=== PATIENT | male | born 1955 | race Caucasian/White ===

== ENCOUNTER 2020-05-07 06:54 | Outpatient (CLI) | payer MEDICARE, SELFPAY ==
--- NOTE | 2020-05-07 07:15 | USCV_ITS ---
Amando Hearn Age: 64 Gender: M : 1955 Exam Date: 05/07/2020 07:23 Ordering Phys: Joanna Ken MD Technologist: Dena Sharma Exam Location: [facility] [place] Indication: CARDIOMYOPATHY DONE WITH OPTISON BP: 120 / 55 HR: 54 Rhythm: Sinus Technical Quality: Adequate MEASUREMENTS (Male / Female) Normal Values 2D ECHO LV Diastolic Diameter PLAX 4.8 cm 4.2 - 5.9 / 3.9 - 5.3 cm LV Systolic Diameter PLAX 4.0 cm LV Chamber Size 5.9 cm IVS Diastolic Thickness 1.3 cm 0.6 - 1.0 / 0.6 - 0.9 cm IVS Systolic Thickness 1.6 cm LVPW Diastolic Thickness 1.7 cm 0.6 - 1.0 / 0.6 - 0.9 cm LVPW Systolic Thickness 1.6 cm RV Chamber Size 3.6 cm LVOT Diameter 2.0 cm LV Ejection Fraction 2D Teich 35.4 % LV Ejection Fraction MOD 2C 46.2 % LV Ejection Fraction 2C AL 46.7 % LA Diameter 3.5 cm LA Width 3.8 cm LA Height 5.8 cm RA Width 3.5 cm RA Height 4.6 cm Aorta at Sinotubular Diameter 3.8 cm M-MODE LV Diastolic Diameter MM 5.0 cm 4.2 - 5.9 / 3.9 - 5.3 cm LV Systolic Diameter MM 4.1 cm LV Ejection Fraction MM Teich 36.6 % IVS Diastolic Thickness MM 1.5 cm 0.6 - 1.0 / 0.6 - 0.9 cm IVS Systolic Thickness MM 1.6 cm LVPW Diastolic Thickness MM 1.3 cm 0.6 - 1.0 / 0.6 - 0.9 cm LVPW Systolic Thickness MM 1.6 cm Aortic Annulus Diameter 3.6 cm LA Ao Ratio MM 1.1 MV E Point Septal Separation 0.9 cm DOPPLER AV Peak Velocity 117.0 cm/s LVOT Peak Velocity 73.7 cm/s AV Area Cont Eq vti 2.0 cm squared AV Area Cont Eq pk 2.0 cm squared MV Area PHT 2.5 cm squared Mitral E to A Ratio 1.1 MV E' Velocity 42.0 cm/s Mitral E to MV E' Ratio 13.3 Mitral E to LV E' Lateral Ratio 10.7 Mitral E to LV E' Septal Ratio 17.5 TR Peak Velocity 207.6 cm/s TR Peak Gradient 17.2 mmHg TR Mean Velocity 180.2 cm/s TR Mean Gradient 14.0 mmHg TR Velocity Time Integral 91.7 cm TV Peak E Velocity 63.0 cm/s Right Atrial Pressure 3.0 mmHg Pulmonary Artery Systolic Pressu 20.2 mmHg PV Peak Velocity 44.0 cm/s RV Acceleration Time 0.1 s RV Ejection Time 0.4 s RV AcT/ET 0.4 FINDINGS Left Ventricle Mildly increased left ventricular cavity size. Moderately decreased left ventricular systolic function. Left ventricular ejection fraction is estimated at 30-35%. Global left ventricular hypokinesis. Grade II diastolic dysfunction, moderately elevated filling pressures. Right Ventricle Normal right ventricular size and systolic function. Right ventricular systolic pressure 20.2 mmHg. Right Atrium Normal right atrial size. Left Atrium Mildly increased left atrial size. Mitral Valve Mildly thickened mitral valve. No mitral valve stenosis. Trace mitral valve regurgitation. Aortic Valve Structurally normal trileaflet aortic valve. No aortic valve stenosis. No aortic valve regurgitation. Tricuspid Valve Structurally normal tricuspid valve. Trace to mild tricuspid valve regurgitation. Pulmonic Valve Pulmonic valve not well visualized. Trace pulmonary valve regurgitation. Pericardium No pericardial effusion. Aorta Normal sized aortic root. CONCLUSIONS 1. Mildly increased left ventricular cavity size. Moderately decreased left ventricular systolic function. Left ventricular ejection fraction is estimated at 30-35%. Global left ventricular hypokinesis. Grade II diastolic dysfunction, moderately elevated filling pressures. 2. Normal right ventricular size and systolic function. 3. No significant valvular abnormality. 4. When compared to previous echocardiogram dated 02/15/2018, left ventricular systolic function seems to have decreased. Joanna Ken MD (Electronically Signed) Final Date: 14 May 2020 07:27 S
[2020-05-07] MEDS: perflutren protein-a microsphr 0.22 mg/mL SDV 3 mL IV (08:18)
== END 2020-05-07 06:55 | disposition home or self-care (01) ==
LOC: US 06:56
PROVIDERS: PCP Family Medicine; Visit Provider Internal Medicine Cardiovascular Disease
DX: I42.9 Cardiomyopathy, unspecified (principal); I51.7 Cardiomegaly
CPT/HCPCS: C8929; Q9956

== ENCOUNTER 2020-11-23 14:50 | Outpatient (CLI) | payer MEDICARE, SELFPAY ==
--- NOTE | 2020-11-23 15:45 | USCV_ITS ---
Amando Hearn Age: 65 Gender: M : 1955 Exam Date: 11/23/2020 15:42 Ordering Phys: Joanna Ken MD ([email or web address]) Technologist: Ex[place] [facility] [place]: CHF, Hx OF [place] BP: 130 / 75 HR: 72 Rhythm: Sinus Technical Quality: Technically difficult study MEASUREMENTS (Male / Female) Normal Values 2D ECHO LV Diastolic Diameter PLAX 6.4 cm 4.2 - 5.9 / 3.9 - 5.3 cm LV Systolic Diameter PLAX 4.6 cm IVS Diastolic Thickness 1.1 cm 0.6 - 1.0 / 0.6 - 0.9 cm IVS Systolic Thickness 1.7 cm LVPW Diastolic Thickness 1.6 cm 0.6 - 1.0 / 0.6 - 0.9 cm LVPW Systolic Thickness 1.5 cm LVOT Diameter 2.0 cm LV Ejection Fraction 2D Teich 42.4 % LV Ejection Fraction MOD 2C 48.4 % LV Ejection Fraction 2C AL 50.1 % LA Diameter 4.0 cm LA Width 4.0 cm LA Height 6.1 cm RA Width 4.0 cm RA Height 5.0 cm FINDINGS Left Ventricle Mildly increased left ventricular cavity size. Moderately decreased left ventricular systolic function. Left ventricular ejection fraction is estimated at 30-35 %. This study is inadequate for estimation of regional wall motion abnormality. Right Ventricle Normal right ventricular size and systolic function. Right Atrium Normal right atrial size. Left Atrium Left atrium not well visualized. Mildly increased left atrial size. Mitral Valve Thickened mitral valve. Aortic Valve Aortic valve not well visualized. Tricuspid Valve Tricuspid valve not well visualized. Pulmonic Valve Pulmonic valve not well visualized. Pericardium No pericardial effusion. Aorta Aorta not well visualized. CONCLUSIONS 1. This is technically difficult study. 2. Mildly increased left ventricular cavity size. Moderately decreased left ventricular systolic function. Left ventricular ejection fraction is estimated at 30-35 %. This study is inadequate for estimation of regional wall motion abnormality. 3. Normal right ventricular size and systolic function. 4. Direct comparison to previous study dated 05/07/20 is not possible due to difficult study. Joanna Ken MD (Electronically Signed) Final Date: 26 November 2020 07:49 S
== END 2020-11-23 14:51 | disposition home or self-care (01) ==
LOC: US 14:52
PROVIDERS: PCP Family Medicine; Visit Provider Internal Medicine Cardiovascular Disease
DX: I42.9 Cardiomyopathy, unspecified (principal); I50.9 Heart failure, unspecified; I25.2 Old myocardial infarction
CPT/HCPCS: 93308

== ENCOUNTER → 2020-12-05 09:44 | Outpatient (BNVA) | payer MEDICARE, SELFPAY | PROVIDERS: PCP Family Medicine; Visit Provider Internal Medicine Cardiovascular Disease | DX: I42.9 Cardiomyopathy, unspecified (principal); I25.119 Atherosclerotic heart disease of native coronary artery with unspecified angina pectoris; I10 Essential (primary) hypertension; R07.9 Chest pain, unspecified | CPT/HCPCS: 80048; 83735; 83880 ==

== ENCOUNTER → 2021-05-16 13:53 | Outpatient (BNVA) | payer MEDICARE, SELFPAY | PROVIDERS: PCP Family Medicine; Visit Provider Internal Medicine Cardiovascular Disease | DX: I42.9 Cardiomyopathy, unspecified (principal); I25.119 Atherosclerotic heart disease of native coronary artery with unspecified angina pectoris; I10 Essential (primary) hypertension | CPT/HCPCS: 99214 ==

== ENCOUNTER 2021-08-28 00:05 | Inpatient (IN) | payer MEDICARE, SELFPAY ==
[2021-08-28] VITALS (61 sets, daily range): BP systolic 108–176; BP diastolic 53–84; PULSE 70–93; RESP 9–23; TEMP 36.4–36.8; O2SAT 88–97; BMI 32.1
--- NOTE | 2021-08-28 | USCV_ITS ---
Transthoracic Echo Amando Hearn Age: 65 Gender: M : 1955 Exam Date: 08/28/2021 02:18 Ordering Phys: Erick Lobo MD Technologist: GENESIS Exam Location: [facility] [place] Indication: chest pain, history of cardiac arrest. Hx EF 15- 20% BP: 141 / 70 HR: 70 Rhythm: Sinus Technical Quality: Adequate MEASUREMENTS (Male / Female) Normal Values 2D ECHO LVOT Diameter 2.2 cm LV Ejection Fraction MOD 2C 43.6 % LV Ejection Fraction 2C AL 45.1 % LA Diameter 5.6 cm LA Width 4.9 cm LA Height 7.5 cm RA Width 3.4 cm RA Height 4.7 cm Aorta at Sinotubular Diameter 3.2 cm IVC Diameter 1.6 cm M-MODE Aortic Annulus Diameter 3.5 cm LA Ao Ratio MM 1.6 MV E Point Septal Separation 0.6 cm DOPPLER AV Peak Velocity 140.0 cm/s LVOT Peak Velocity 109.0 cm/s AV Area Cont Eq vti 3.4 cm squared AV Area Cont Eq pk 2.9 cm squared MV Peak Velocity 108.0 cm/s MV Area PHT 4.8 cm squared Mitral E to A Ratio 0.8 MV E' Velocity 46.5 cm/s Mitral E to MV E' Ratio 9.2 Mitral E to LV E' Lateral Ratio 7.6 Mitral E to LV E' Septal Ratio 11.8 TR Peak Velocity 232.8 cm/s TR Peak Gradient 21.7 mmHg TV Peak E Velocity 49.0 cm/s Right Atrial Pressure 10.0 mmHg Pulmonary Artery Systolic Pressu 31.7 mmHg PV Peak Velocity 108.0 cm/s RV Acceleration Time 0.1 s RV Ejection Time 0.4 s RV AcT/ET 0.2 FINDINGS Left Ventricle Normal left ventricular size. LV systolic function is moderate to severely reduced with EF of 30-35%. Moderate to severe global hypokinesis. Grade 1 diastolic dysfunction Right Ventricle RV is hypokinetic Right Atrium The right atrium is normal in size. Left Atrium The left atrium is dilated Mitral Valve Grossly normal without significant stenosis or prolapse. There is no mitral regurgitation. Aortic Valve Grossly normal without significant stenosis. There is no aortic regurgitation. Tricuspid Valve Structurally normal tricuspid valve without significant stenosis. Mild tricuspid regurgitation. Pulmonary artery systolic pressure is normal. Pulmonic Valve Not well visualized Pericardium Normal pericardium without effusion. Aorta Mildly dilated ascending aorta IVC CONCLUSIONS Technically limited quality echocardiogram because of poor ultrasonic windows LV systolic function is moderate to severely reduced with EF of 30 to 35%. Moderate to severe global hypokinesis Grade 1 diastolic dysfunction. The right ventricle is hypokinetic. Left atrium is dilated. Mild tricuspid regurgitation. Mildly dilated ascending aorta Compared to prior echocardiogram from 11/23/2020, no signficant changes are seen Dirk Emanuel MD (Electronically Signed) Final Date: 28 August 2021 17:50 S
[2021-08-28 01:10] LABS: Glucose Point of Care 137 mg/dL (70-110)
--- NOTE | 2021-08-28 01:46 | NMCV_ITS ---
NM kanika perf SPECT r/s* [id number] Amando Hearn Age: 65 Gender: M : 1955 Exam Date: 08/28/2021 01:46 Ordering Phys: Erick Lobo MD Technologist: CAITLIN Sanford Exam Location: [facility] Indications: CHEST PAIN STRESS TEST Please see separate stress test report in [facility] for full findings IMAGE PROTOCOL Rest/Stress 1 Lexiscan Day Radiopharmaceutical Dose (mCi) Administration Site Administered by Rest: Tc-99m 11.0 IV CAITLIN Sanford Sestamibi Stress:Tc-99m 33.0 IV CAITLIN Rodarte Sestamibi Rest: 28-Aug-2021 60 Discovery 630 Stress: 28-Aug-2021 30 Discovery 630 0.4mg Lexiscan. Supine position only as patient was unable to lay prone. SPECT RESULTS Technical Quality: Excellent Raw Data Analysis: Normal Image Corrections: No attenuation or motion correction applied Summed Stress Score: 19 Summed Rest Score: 18 Summed Difference Score: 1 PERFUSION FINDINGS There is mostly fixed, large sized perfusion defect in the apical, apical lateral, inferior and inferolateral richardson with some reversibility in inferolateral wall. This is consistent with large sized prior infarct in LAD, RCA and left circumflex artery territories with small to moderate sized rolan- infarct ischemia is seen in the left circumflex artery territory. FUNCTIONAL RESULTS (calculated via Gated SPECT) Stress Image LV EF (%): 33 Stress EDV (mL):213 TID: 0.99 Stress ESV (mL):143 FUNCTIONAL FINDINGS: LV systolic function is severely reduced with EF of 33%. Severe global hypokinesis is seen IMPRESSIONS 1. Abnormal myocardial perfusion imaging with large sized infarct seen in RCA, LAD and Left circumflex artery territory with small to moderate sized rolan- infarct ischemia noted in the left circumflex artery territory. 2. LV systolic function is severely reduced with EF of 33%. Severe global hypokinesis Dirk Emanuel MD (Electronically Signed) Final Date: 28 August 2021 12:23 S
--- NOTE | 2021-08-28 02:06 | PM.HP ---
Providers/Chief Complaint Admitting Physician: Erick Lobo Primary Care Provider: Souleymane Neal Chief Complaint: Chest Pain History of Present Illness Pleasant 65-year-old gentleman transferred as a direct admission from [facility] due to new in quality, burning left-sided chest pain, initial plan currently admitted there for rehabilitation after an extensive recent hospitalization at [facility] [facility] where he was assessed and managed for left knee septic arthritis, MSSA bacteremia, with hospitalization complicated by PEA cardiac arrest, required ACLS, with achievement of ROSC in about 5 minutes, subsequently with hypotension, requiring vasopressors, as well as requiring about 5 units RBC transfusion due to anemia. With resultant rib and sternal fractures and continued pain. They are also assessed by cardiology underwent ANTHONY, with finding of ejection fraction in the 15-20% range. Some question of fluid around the spleen at the time was assessed by general surgery with recommended conservative management. With prior history of TKA in 2014, after his condition stabilized, he was extubated, and subsequently underwent left knee hardware removal and cement spacer placement of the left knee. PICC line was placed sometime before discharge from [facility], and he is continued on cefazolin as per ID recommendations every 8 hours tentatively until 09/23. PICC line is to stay in until follow-up with ID. They are still was also started on vancomycin p.o. as a prophylaxis against C. difficile per documentation. Knee synovial fluid grew MSSA. He reports that he has appointments for follow-up with infectious disease in September, and was also referred for follow-up with cardiology, orthopedics. He reports that he is toe-touch weightbearing on the left lower extremity. Dressing changes are continued on the left knee, although he is not sure what kind of dressing, and I do not see a record of this in the paperwork that came with him. He states that after clearance of bacteremia, reassessment with ID, then also he required extensive dental extraction as she states it was thought likely this was the source of entry for MSSA, before then further consideration of hardware reimplantation. More detailed documentation from his hospitalization in [place] is in the paper chart. He reports the left-sided chest pain with burning sensation and stabbing, like a hot knife . Denies that this pain was similar to the pain from the rib and sternal fractures. Denies any change in his pain with position or breathing. At [facility] due to persistence of the pain Nitropaste was applied and was started on ACS protocol, and after discussion with cardiology here request was made for transfer for additional assessment with stress test given prior history of coronary disease, as well as recent cardiac arrest. He reports he is at the moment pain-free. Review of Systems Const: Denies: fever(s), chills, body aches or malaise Eyes: Denies: change in vision, eye discomfort or eye redness ENMT: Denies: throat pain, oral sores or ear or mastoid pain Card: Reports: chest pain; Denies: edema, pre-syncope or dyspnea on exertion Resp: Denies: dyspnea, productive cough, change in phlegm color or hemoptysis GI: Denies: abdominal pain, nausea, vomiting, diarrhea, constipation, hematochezia or melena : Denies: flank pain, difficulty urinating, urinary frequency or hematuria Musc: Denies: back pain, joint swelling or joint redness Skin/Breast: Denies: rash or new lesions Neuro: Denies: headache(s), numbness in extremities, weakness in extremities, dizziness, confusion or seizure-like activity Endo: Denies: polyuria or polydipsia Jamil/Lymph: Denies: easy bleeding or tender lymph nodes All/Imm: Denies: urticaria or tongue swelling Medications/Allergies Home Medications Medication Instructions Recorded Confirmed Last Taken Type aspirin 81 mg tablet,delayed 81 mg PO DAILY 10/26/19 01/21/21 Unknown History release (Aspir-) fluoxetine 40 mg capsule 40 mg PO DAILY 10/26/19 01/21/21 Unknown History multivitamin 1 tab PO DAILY 10/26/19 01/21/21 Unknown History vitamin E (dl, acetate) 180 mg 400 unit PO DAILY 10/26/19 01/21/21 Unknown History (400 unit) capsule cholecalciferol (vitamin D3) 10 10 mcg PO DAILY 10/15/20 01/21/21 Unknown History mcg (400 unit) capsule ginkgo biloba 60 mg tablet 60 mg PO DAILY tab 10/15/20 01/21/21 Unknown History nitroglycerin 0.3 mg sublingual 0.3 mg SUBLINGUAL Q5M PRN #50 tab 11/28/20 01/21/21 Unknown Rx tablet (Nitrostat) celecoxib 100 mg capsule (Celebrex) 100 mg PO DAILY cap 05/16/21 Unknown History clopidogrel 75 mg tablet 75 mg PO DAILY #90 tab 05/16/21 05/16/21 Unknown Rx spironolactone 25 mg tablet 25 mg PO DAILY #90 tab 05/16/21 05/16/21 Unknown Rx (Aldactone) lisinopril 10 mg tablet 10 mg PO DAILY #90 tab 05/18/21 05/18/21 Unknown Rx metoprolol succinate 25 mg 25 mg PO DAILY #90 tab 05/18/21 05/18/21 Unknown Rx tablet,extended release 24 hr rosuvastatin 20 mg tablet 20 mg PO DAILY #90 tab 05/18/21 05/18/21 Unknown Rx Allergies Allergy/AdvReac Type Severity Reaction Status Date / Time Penicillins AdvReac ADR-Itching Verified 01/21/21 13:51 PFSH Acute PFSH: Medical History Anemia Cardiac arrest Chewing tobacco nicotine dependence Chronic back pain Coronary artery disease Diabetes RAMAN (generalized anxiety disorder) GERD (gastroesophageal reflux disease) HFrEF (heart failure with reduced ejection fraction) Hyperlipidemia Hypertension Ischemic cardiomyopathy MSSA bacteremia Rib fractures Septic arthritis Sternal fracture Surgical History History of total knee arthroplasty Stented coronary artery Family History Other CAD (coronary artery disease) Myocardial infarction Social History Smoking and tobacco status: never smoked Quit status (tobacco): has quit using tobacco Alcohol intake: current Alcohol intake frequency: holidays/special occasions only Alcohol type: beer, wine and hard liquor Vitals/I&O/Wt Last Vital Signs Temp 98.3 F 08/28/21 00:15 Pulse 70 08/28/21 01:48 Resp 13 08/28/21 01:45 BP 141/70 08/28/21 01:45 Pulse Ox 92 08/28/21 01:45 08/27/21 08/27/21 08/28/21 14:59 22:59 06:59 Intake Total 3.333 / 3.333 Balance 3.333 / 3.333 Weight last 48 hrs Weight 122.969 kg Physical Exam Const: COMMON NORMALS: alert GENERAL APPEARANCE: cooperative NUTRITIONAL APPEARANCE: overweight ORIENTATION/CONSCIOUSNESS: Yes awake OTHER: Pleasant, conversant HENMT: COMMON NORMALS: normocephalic, EAC's normal, Normal external nose present and moist oral mucous membranes HEAD & SCALP: normocephalic NOSE: Normal external nose present EXTERNAL AUDITORY CANAL: EAC's normal Neck/C-Spine: COMMON NORMALS: no meningeal signs Chest: CHEST: Yes Symmetrical chest wall rise OTHER: Bruising Resp: COMMON NORMALS: clear to auscultation bilaterally AUSCULTATION: clear to auscultation bilaterally Cardio: COMMON NORMALS: regular rate, regular rhythm and No murmurs present (Cardio) RATE: regular rate RHYTHM: regular rhythm GI: COMMON NORMALS: Normal to inspection, nondistended, normoactive bowel sounds present, Soft to palpation and non-tender PALPATION: Yes Soft to palpation Extremity: COMMON NORMALS: no pedal edema OTHER: L knee audelia wrap dressing RUE 2 lumen PICC Neuro: COMMON NORMALS: moves all extremities SENSORIUM/ORIENTATION: Yes alert MENINGEAL SIGNS: Yes no meningeal signs Psych: COMMON NORMALS: mental status grossly normal Skin: COMMON NORMALS: no wounds RASHES: no rashes A&P Assessment and plan (1) Chest pain: Left side burning/stabbing chest pain, reports different from prior sternal fracture and rib fracture pain after PEA cardiac arrest and CPR for 5 minutes at [facility]. With known history of CAD, previously 2 AI to RCA in 2018. Nitropaste was applied at [facility] from where he is a direct admission. Currently chest pain-free. Transferred here for additional assessment with stress testing. Discussed with him, requested, n.p.o. at the moment. We will additionally assess with limited TTE, previously EF 15-20% in [place] after cardiac arrest on ANTHONY. Denies having any assessment at that time with coronary angiography. Started on ACS protocol at [facility] including Lovenox. We will continue for now. Monitor hemoglobin closely as he did not require transfusion of RBC and drop in after the PEA arrest. Denies cough, shortness of breath, no unilateral extremity swelling, no tachycardia, other symptoms to suggest PE. Will assess LLE duplex. Status: Acute Qualifiers: Chest pain type: unspecified Qualified Code(s): R07.9 - Chest pain, unspecified (2) Cardiomyopathy: History of ischemic cardiomyopathy, EF 30-35%, worse after PEA cardiac arrest in [place] in July, EF 15-20% reported at that time. Cannot appreciate had additional cardiac or worsening beyond ANTHONY at that time. Amateur also there was discussion regarding LifeVest/ICD. We will follow-up with limited TTE. Previously had issues with AUDELIA inhibitor due to soft blood pressure. Monitor blood pressures. Consider LifeVest. Additional work-up as above of chest pain with known CAD. Follow-up with cardiology or consider inpatient consultation depending on condition and further findings. Status: Acute Qualifiers: Cardiomyopathy type: unspecified Qualified Code(s): I42.9 - Cardiomyopathy, unspecified (3) Septic arthritis: Left knee septic arthritis with hardware removal 08/13 with cement spacer placed, with every 8 hours IV cefazolin tentative stop date 09/23, PICC line to remain in place until follows up with ID. Complicated with MSSA bacteremia. Source of entry thought to be due to periodontal disease for which she states plans are also for dental extraction. Given the timing of his arrival. Not at this time look at his left knee wound, please reassess when time permits. He reports dressing changes have been taking place at [facility], although I do not see current wound care measures in the paperwork arrived with him. Requested records regarding wound care. Please order once this is available. Oral vancomycin documented as prophylaxis against C. difficile in paperwork from [place]. TTWB LLE Status: Acute (4) MSSA bacteremia: As above Status: Acute (5) Decubital ulcer: Stage I decubital ulcer on his bottom. Foam dressing daily. Status: Acute Plan HTN DM2 HLD Chewing tobacco use: He has since quit chewing tobacco Sternal fracture and multiple rib fractures after CPR: Lidocaine patch, Tylenol as needed. I-S. Attestations Medical Necessity Statement*: Place in for additional assessment management of chest pain and gentleman with underlying CAD, recent cardiac arrest. 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 of Care Code Acute Fabric Pattern Grader for Se Carr Diagnoses Chest pain R07.9 Chest pain type: unspecified Cardiomyopathy I42.9 Cardiomyopathy type: unspecified Septic arthritis M00.9 MSSA bacteremia R78.81; B95.61 Decubital ulcer L89.90
--- NOTE | 2021-08-28 02:23 | USCV_ITS ---
Amando Hearn Age: 65 Gender: M : 1955 Exam Date: 08/28/2021 03:15 Ordering Phys: Erick Lobo MD Technologist: GENESIS Exam Location: [facility] [place] Indication: infection LEFT leg s/p LEFT total knee removal in [place] last month. Patient is poor historian. Hx LEFT total knee 2004, 2014. HISTORY: infection LEFT leg s/p LEFT total knee removal in [place] last month. Patient is poor historian. Hx LEFT total knee replacements 2004, 2014. No hx DVT per patient. PROCEDURES: Venous duplex imaging was performed in only the left lower extremity. The following venous structures were evaluated: common femoral vein, profunda vein, proximal portion of the greater saphenous vein, superficial femoral vein, and the popliteal vein. In addition, the posterior tibial veins were evaluated. FINDINGS: Normal 2-D Doppler and augmentation and compressibility throughout the lower extremity venous structures. Additional imaging through the proximal calf veins also reveals no thrombus. Limited evaluation of the greater saphenous vein is patent with no thrombus. Complex fluid collection left thigh measures 6.7 x 4.4 x 6.7 cm. CONCLUSIONS No DVT left lower extremity. Complex fluid collection distal left thigh, postop seroma, resolving hematoma or abscess in the differential. Dr. Monica Sanchez DO (Electronically Signed) Final Date: 28 August 2021 07:45 S
[2021-08-28 05:30] LABS: Basophils % 0.2 %; Eosinophils # 0.2 10^3/uL (0.0-0.8); Eosinophils % 3.6 %; Hematocrit 24.5 % (42.0-52.0); Hemoglobin 8.1 g/dL (11.7-16.6); Lymphocytes # 1.6 10^3/uL (0.8-4.8); Lymphocytes % 32.5 %; Mean Corpuscular HGB Conc 33.1 g/dL (30.0-36.0); Mean Corpuscular Hemoglobin 30.2 pg (28.0-34.0); Mean Corpuscular Volume 91.4 fl (80-94); Mean Platelet Volume 9.5 fL (7.4-10.4); Monocytes # 0.6 10^3/uL (0.2-0.9); Monocytes % 10.9 %; Neutrophils # 2.64 10^3/uL (1.8-7.7); Neutrophils % 52.4 %; Nucleated Red Blood Cells % 0 %; Platelet Count 259 10^3/cmm (130-400); Red Blood Count 2.68 10^6/uL (4.1-5.3); Red Cell Distribution Width 13.8 % (12.1-15.1)
[2021-08-28 05:47] LABS: Troponin T (5th) Once 23 ng/L (0-15)
[2021-08-28 05:50] LABS: Alanine Aminotransferase < 5 U/L (0-41); Albumin Level 2.9 g/dL (3.5-5.2); Alkaline Phosphatase 108 IU/L (40-130); Anion Gap 13.1 (5-19); Aspartate Amino Transferase 17 U/L (0-40); Blood Urea Nitrogen 16 mg/dL (8-23); Calcium 8.3 mg/dL (8.5-10.5); Carbon Dioxide 29 mmol/L (22-29); Chloride 92 mmol/L (98-107); Globulin 4.4 g/dL (1.3-4.6); Glucose 98 mg/dL (65-115); Osmolality Calculated 273 mOsm/kg (285-295); Potassium 3.1 mmol/L (3.5-5.1); Sodium 131 mmol/L (136-145); Total Bilirubin 0.9 mg/dL (0.15-1.2); Total Protein 7.3 g/dL (6.6-8.7)
--- NOTE | 2021-08-28 07:00 | ECG_ITS ---
[facility] Test Date: 2021-08-28 Pat Name: Amando Hearn Department: Room: [facility] Gender: Male Triage Register Nurse: Kelly Smith : 1955 Requested By: Erick Lobo Order Number: [id number] Sofiya MD: Dirk Emanuel M.D. Interpretive Statements NAME OF STUDY: LEXISCAN SESTAMIBI STRESS TEST INDICATION: [Chest Pain hx cad] Procedure: At the baseline, the blood pressure was 131/74 mmHg with a heart rate of 75 bpm. The electrocardiogram showed normal sinus rhythm, left axis deviation with normal ST and T's. The Lexiscan was infused over a period of 20 seconds. A total of 0.4 mg of Lexiscan was infused. The stress phase was continued for a total of 5 minutes. Heart rate was at the end of stress phase was 89 bpm and a blood pressure of 130/65 mmHg. The EKG at the peak infusion revealed since normal sinus rhythm with no significant ST-T wave changes. Sestamibi was injected 20 seconds after the Lexiscan infusion. Blood pressure at the end of recovery phase was 123/78 mmHg with a heart rate of 87 bpm. Conclusion: 1. Normal EKG response to Lexiscan infusion 2. No Lexiscan induced chest pain or cardiac arrhythmia. 3. Normal blood pressure and heart rate response. 4. Sestamibi/sestamibi perfusion scan pending; see separate report. Electronically Signed On 09-14-2021 12:08:40 CDT by Dirk Emanuel M.D. [id number]
--- NOTE | 2021-08-28 08:23 | PM.MISC ---
Miscellaneous Note Purpose of Documentation: Mini progress note Note: Patient seen today. He denies active chest pain at this time. We will continue same management plan as per history physical document. He will go for stress test today. Echo is pending. Will consult cardiology. Dr. Pedraza will see patient today. We will review records from other hospital to go over his wound care recommendations for his knee. Lungs clear to auscultation Abdomen soft nontender Alert oriented x3 appearing comfortable Management same as H&P assessment plan at this time.
[2021-08-28] MEDS: regadenoson 0.4 Mg/5 ml Syringe IVP (09:51)
[2021-08-28] MEDS: LORazepam 2 mg/mL INJ 1 mL 0.25 MG IVP ×2 (10:05→22:23)
[2021-08-28] MEDS: hyDRALAzine 25 mg Tablet PO ×3 (10:55→20:10)
[2021-08-28] MEDS: enoxaparin 120 mg/0.8 mL Syringe SUBCUT (10:55)
[2021-08-28] MEDS: carvedilol 6.25 mg Tablet PO ×2 (10:56→18:03)
[2021-08-28] MEDS: lactobacillus 1 Tablet 1 TAB PO ×2 (10:56→18:03)
[2021-08-28] MEDS: aspirin 325 mg Tablet PO (10:57)
[2021-08-28] MEDS: famotidine 20 mg Tablet PO ×2 (10:57→18:03)
[2021-08-28] MEDS: FUROsemide 40 mg Tablet PO (10:57)
[2021-08-28] MEDS: gabapentin 100 mg Capsule PO ×3 (10:58→20:10)
[2021-08-28] MEDS: fluoxetine 20 mg Capsule 40 MG PO (10:58)
[2021-08-28 11:52] LABS: Glucose Point of Care 222 mg/dL (70-110)
[2021-08-28] MEDS: insulin lispro 100 unit/1 mL SUBCUT ×2 (12:28→20:36)
--- NOTE | 2021-08-28 17:22 | PC.PHAR ---
PT UNABLE TO VERIFY MEDICATIONS. NOT ALL MEDICATIONS WHERE LISTED ON EXTERNAL MED LIST- UNABLE TO MAKE CONTACT WITH PATIENTS CONTACT FARNAZ - MEDICATIONS VERIFIED USING MED LIST FROM [facility] THAT PT WAS DISCHARGED FROM A FEW DAYS AGO.
[2021-08-28 17:31] LABS: Glucose Point of Care 74 mg/dL (70-110)
[2021-08-28] MEDS: potassium chloride ER 20 mEq Tablet 40 MEQ PO (18:49)
--- NOTE | 2021-08-28 19:01 | PC.NURSE ---
Report Report called to Percy DAVILA.
--- NOTE | 2021-08-28 20:01 | PM.CONSULT ---
Providers/Reason For Consult Consulting Physician/Specialty*: Artur Pedraza MD/cardiology Reason for Consult*: Patient with chest pain/history of ASHD/recent cardiac arrest/ Requesting Physician: Dr. Gudino Attending Physician: Angeles Gudino MD Primary Care Provider: Souleymane Neal History of Present Illness History of Present Illness Amando Haern is a 65 year old male who is transferred to our hospital from [facility] in [place] for complaints of chest pain. He underwent a Myocardial perfusion imaging today. The perfusion scan revealed areas of fixed and reversible defects, suggesting ischemia. Cardiology consult is requested for further cardiac evaluation recommendations. This patient is known to have coronary artery disease and had a PCI of the right coronary artery in 2018. He was admitted to the [facility] in [place] with the features of septic arthritis of the left knee. He had a TKA of the left knee in 2014. The patient was taken to the operating room for possible hardware removal and debridement of the knee joint. After the induction of anesthesia, the patient went into PEA requiring ACLS. He had ROSC in 5 minutes, based on the records. He sustained multiple rib fractures. He was apparently found to be in septic shock requiring multiple vasopressors. He was in the ICU for almost 3 weeks. He grew MSSA in the blood. He is on antibiotics. No cardiology for the can you tell angiogram performed in the cardiac catheterization report Cardiac catheterization angiogram and angiogram report and the cardiology consult he was consulted by cardiology, neurology and nephrology. The details of the consult reports are not available at this time. He had a ANTHONY and was found no vegetations. His LV ejection fraction was around 15%, based on the reports. According to the patient's , he had extensive cardiac evaluation including cardiac catheterization, after he got stabilized. The details are not available. He was taken back to surgery and had the hardware removed with extensive debridement of the knee joint. He was transferred to [facility] for physical therapy/swing bed. While being in [facility], he started complaining of chest pain. He was given sublingual nitro and Nitropaste. He had relief of symptoms. However he had recurrence of chest pains and for that reason, was transferred to our facility. Patient underwent Myocardial perfusion imaging today. The results are as mentioned below. He was found to have a large area of fixed defect involving the distribution of all the 3 coronary arteries with a small to moderate area of reversible defect suggesting rolan-infarction ischemia in the distribution of the left circumflex artery. Medications/Allergies Home Medications Medication Instructions Recorded Confirmed Last Taken Type fluoxetine 40 mg capsule 40 mg PO DAILY 10/26/19 08/28/21 Unknown History Saccharomyces boulardii 250 mg 250 mg PO BID 08/28/21 08/28/21 Unknown History capsule (Florastor) aspirin 81 mg tablet,delayed 81 mg PO DAILY 08/28/21 08/28/21 Unknown History release benzonatate 100 mg capsule 100 mg PO TID PRN 08/28/21 08/28/21 Unknown History carvedilol 6.25 mg tablet 6.25 mg PO BID 08/28/21 08/28/21 Unknown History cetirizine 10 mg capsule 10 mg PO DAILY 08/28/21 08/28/21 Unknown History cyclobenzaprine 10 mg tablet 10 mg PO TID PRN 08/28/21 08/28/21 Unknown History docusate sodium 100 mg capsule 100 mg PO BID PRN 08/28/21 08/28/21 Unknown History famotidine 20 mg tablet 20 mg PO BID 08/28/21 08/28/21 Unknown History fluticasone propionate 50 2 spray INTRANASAL DAILY 08/28/21 08/28/21 Unknown History mcg/actuation nasal spray,suspension furosemide 40 mg tablet 40 mg PO DAILY 08/28/21 08/28/21 Unknown History gabapentin 100 mg capsule 100 mg PO DAILY 08/28/21 08/28/21 Unknown History glucagon 1 mg/0.2 mL subcutaneous See Rx Instructions .ROUTE .COMPLEX 08/28/21 08/28/21 Unknown History auto-injector hydralazine 25 mg tablet 25 mg PO TID 08/28/21 08/28/21 Unknown History hydroxyzine HCl 50 mg tablet 50 mg PO Q6H PRN 08/28/21 08/28/21 Unknown History insulin glargine 100 unit/mL 15 unit SUBCUT BID 08/28/21 08/28/21 Unknown History subcutaneous solution (Lantus U-100 Insulin) insulin lispro 100 unit/mL See Rx Instructions .ROUTE .COMPLEX 08/28/21 08/28/21 Unknown History subcutaneous solution (Humalog U-100 Insulin) lidocaine 5 % topical patch 2 patch TOPICAL DAILY 08/28/21 08/28/21 Unknown History melatonin 5 mg tablet 5 mg PO BEDTIME 08/28/21 08/28/21 Unknown History multivitamin,tx-minerals 1 tab PO DAILY 08/28/21 08/28/21 Unknown History naloxone 0.4 mg/mL injection 0.1 mg IM Q2M PRN 08/28/21 08/28/21 Unknown History syringe nitroglycerin 0.4 mg sublingual 0.4 mg SUBLINGUAL Q5M PRN 08/28/21 08/28/21 Unknown History tablet (Nitrostat) oxycodone-acetaminophen 5 mg-325 2 tab PO Q6H PRN 08/28/21 08/28/21 Unknown History mg tablet (Percocet) potassium chloride 20 mEq 20 meq PO DAILY 08/28/21 08/28/21 Unknown History tablet,extended release promethazine 25 mg tablet 25 mg PO TID PRN 08/28/21 08/28/21 Unknown History quetiapine 50 mg tablet 50 mg PO BID 08/28/21 08/28/21 Unknown History vancomycin 125 mg capsule 125 mg PO BID 08/28/21 08/28/21 Unknown History vitamin E 400 unit capsule 400 unit PO DAILY 08/28/21 08/28/21 Unknown History Allergies Allergy/AdvReac Type Severity Reaction Status Date / Time Penicillins AdvReac ADR-Itching Verified 08/28/21 17:14 Current Medications Generic Name Dose Route Start Last Admin Trade Name Apurva PRN Reason Stop Dose Admin Aspirin 325 mg 08/28/21 09:00 08/28/21 10:57 Aspirin 325 Mg Tablet PO 325 mg DAILY PRATIMA Administration Carvedilol 6.25 mg 08/28/21 09:00 08/28/21 18:03 Carvedilol 6.25 Mg Tablet PO 6.25 mg BID PRATIMA Administration Enoxaparin Sodium 120 mg 08/28/21 06:00 08/28/21 18:03 Enoxaparin 120 Mg/0.8 Ml Syringe SUBCUT Not Given Q12H PRATIMA Famotidine 20 mg 08/28/21 09:00 08/28/21 18:03 Famotidine 20 Mg Tablet PO 20 mg BID PRATIMA Administration Fluoxetine HCl 40 mg 08/28/21 09:00 08/28/21 10:58 Fluoxetine 20 Mg Capsule PO 40 mg DAILY PRATIMA Administration Fluticasone Propionate 2 spray 08/28/21 09:00 08/28/21 10:59 Fluticasone Nasal [place] 16gm Btl NASAL Not Given DAILY PRATIMA Furosemide 40 mg 08/28/21 08:00 08/28/21 10:57 Furosemide 40 Mg Tablet PO 40 mg DAILY@0800 PRATIMA Administration Gabapentin 100 mg 08/28/21 09:00 08/28/21 16:10 Gabapentin 100 Mg Capsule PO 100 mg TID PRATIMA Administration Hydralazine HCl 25 mg 08/28/21 09:00 08/28/21 16:11 Hydralazine 25 Mg Tablet PO 25 mg TID PRATIMA Administration Cefazolin Sodium/Dextrose 2 gm in 50 mls @ 100 mls/hr 08/28/21 01:00 08/28/21 18:02 Kefzol IV 100 mls/hr Q8H PRATIMA Administration Protocol Insulin Human Lispro 0 unit 08/28/21 08:00 08/28/21 18:03 Insulin Lispro 100 Unit/1 Ml SUBCUT Not Given WM&BEDTIME PRATIMA Protocol Lactobacillus Acidophilus 1 tab 08/28/21 09:00 08/28/21 18:03 Lactobacillus 1 Tablet PO 1 tab BID PRATIMA Administration Lidocaine 1 patch 08/28/21 09:00 08/28/21 11:00 Lidocaine 5% Patch TOPICAL Not Given [id number] PRATIMA Lorazepam 0.25 mg 08/28/21 09:52 08/28/21 10:05 Lorazepam 2 Mg/Ml Inj 1 Ml IVP 0.25 mg Q4H PRN Administration ANXIETY Vancomycin HCl 125 mg 08/28/21 09:00 08/28/21 18:03 Vancomycin 1,000 Mg Oral Radha (Btl) PO 125 mg BID PRATIMA Administration PFSH Acute PFSH: Medical History Anemia Cardiac arrest Chewing tobacco nicotine dependence Chronic back pain Coronary artery disease Diabetes RAMAN (generalized anxiety disorder) GERD (gastroesophageal reflux disease) HFrEF (heart failure with reduced ejection fraction) Hyperlipidemia Hypertension Ischemic cardiomyopathy MSSA bacteremia Rib fractures Septic arthritis Sternal fracture Surgical History History of total knee arthroplasty Stented coronary artery Family History Other CAD (coronary artery disease) Myocardial infarction Social History Smoking and tobacco status: never smoked Quit status (tobacco): has quit using tobacco Alcohol intake: current Alcohol intake frequency: holidays/special occasions only Alcohol type: beer, wine and hard liquor Vitals/I&O/Wt Last Vital Signs Temp 97.6 F 08/28/21 16:00 Pulse 71 08/28/21 16:00 Resp 18 08/28/21 16:00 BP 124/69 08/28/21 16:00 Pulse Ox 97 08/28/21 16:00 08/28/21 08/28/21 08/28/21 06:59 14:59 22:59 Intake Total 50.000 / 50.000 400 / 400 400 / 800 Output Total 400 / 400 1200 / 1200 500 / 1700 Balance -350.000 / -350.000 -800 / -800 -100 / -900 Weight last 48 hrs Weight 271 lb 1.6 oz Physical Exam Narrative: GENERAL: The patient is alert and oriented times three. Not in any acute distress. HEENT: Moderate pallor, no icterus or lymphadenopathy.Oral cavity: There are no mucous membrane lesions. NECK: Trachea appears to be central. No masses noted. No JVD or thyromegaly appreciated. RESPIRATORY: Chest is symmetrical. No intercostals muscle retraction or any accessory muscle activation. Extensive chest wall tenderness. Breath sounds are heard bilaterally. No rales or rhonchi heard. No evidence of any consolidation. BREASTS: Deferred. HEART: The heart sounds are normal. No S3 or S4. No significant murmurs. No pericardial rub ABDOMEN: No vessel pulsations or distention. No tenderness. No organomegaly appreciated. Bowel sounds are normally heard. : Deferred. RECTAL: Deferred. LYMPHATIC: No lymphadenopathy noted in the neck. EXTREMITIES: No edema or cyanosis. No clubbing. MUSCULOSKELETAL: Left knee is bandaged and diffusely swollen SKIN: There are no significant rashes or ecchymosis NEUROPSYCHIATRIC: The patient is alert and oriented x3. Appears to be in a good mood. No tremors or rigidity noted. Data : 08/28/21 04:43 08/28/21 04:43 Myocardial perfusion imaging: My impression: 1. Abnormal myocardial perfusion imaging with large sized infarct seen in RCA, ?LAD and Left circumflex artery territory with small to moderate sized rolan- ?infarct ischemia noted in the left circumflex artery territory. ?2. LV systolic function is severely reduced with EF of 33%. Severe global ?hypokinesis Other data: 05/07/2020 Echocardiagram CONCLUSIONS ?1. Mildly increased left ventricular cavity size. Moderately ?decreased left ventricular systolic function. Left ventricular ?ejection fraction is estimated at 30-35%. Global left ?ventricular hypokinesis. Grade II diastolic dysfunction, ?moderately elevated filling pressures. ?2. Normal right ventricular size and systolic function. ?3. No significant valvular abnormality. ?4. When compared to previous echocardiogram dated 02/15/2018, ?left ventricular systolic function seems to have decreased. EKG: normal sinus rhythm with Q waves in leads 2, aVF with minimal ST elevation in inferior leads as well as V4 to V6. T-wave inversions noted in inferior leads as well as V4 to V6 with poor anterior R-wave progression. ?When compared to his old EKG from 2013 T-wave inversion as well as minimal ST elevation were new. ? Echocardiogram (01/2018)?with normal LV size and function. LVEF=65%. Grade 1 DD. No RWMA. Coronary angiogram (02/15/2018):?Normal left main, 40% proximal LAD stenosis, mid circumflex 80% stenosis, OM1 75% stenosis. ?Distal RCA to RPLV 99% stenosis. ?Right dominant circulation. ?Successful multiple balloon angioplasties followed by 2 overlapping drug-eluting stent placement in mid to distal RCA that were postdilated with noncompliant balloon (IGOR 4.5 x 18 and 4 x 38 mm). ?Large thrombus burden in RCA (culprit vessel). ?No reflow phenomenon was observed which was treated with IC Cardene. Lexiscan stress test (11/25/2018) ?IMPRESSIONS? ?#1.? Myocardial perfusion imaging revealing moderate area of severely decreased tracer uptake in the inferior, inferolateral and apical segments with a subtle?? ?areas of reversibility, suggestive of myocardial scarring in the distribution?? ?of the right coronary artery/circumflex artery with a very small areas of rolan-? ?infarction ischemia.? ?#2.? Diminished LV ejection fraction of 35%.? ?#3.? LV wall motion analysis revealing diffuse hypokinesia left ventricle? ?#4.? Moderately dilated LV cavity with an end-systolic volume of 123 mL? ?No similar previous studies are available for comparison? A&P Assessment and plan (1) Abnormal nuclear cardiac imaging test: Patient has large areas of fixed defects with small to moderate area of reversible defects suggesting extensive medical scarring with some ischemia. Because of his recurrent episodes of chest pains, he may benefit from a cardiac catheterization to further evaluate his coronary status and decide on further management. However he had a recent cardiac catheterization at the [facility] in [facility], according to the patient's . We do not have any documentation of this in his chart. We will try to get those results from [place]. Status: Acute (2) Cardiac arrest due to underlying cardiac condition: The etiology is not clear. Septic shock, myocardial ischemia, heart failure etc. are contributing factors. Status: Acute (3) Ischemic cardiomyopathy: Patient used to have an elevation fraction of around 35% by echocardiogram before. Based on the report from the [facility] in [place], his ejection fraction dropped down to 15%. We may go ahead and do a limited 2D echocardiogram, to reevaluate the ejection fraction. Status: Acute (4) Atherosclerotic heart disease of [place] coronary artery with other forms of angina pectoris: After reviewing the medical records from the [facility] in [place], we may consider doing an angiogram to decide on further management. I will start him on Plavix 75 mg p.o. daily in addition to the baby aspirin. I may discontinue therapeutic dose of Lovenox and keep him on the DVT prophylaxis dose. Since there is no acute ischemic changes in the EKG or evidence of any myocardial injury, it may be appropriate to do so. Status: Acute (5) Septic arthritis due to Streptococcus species: Continue management as per the primary attending. Status: Acute Plan Other problems are Multiple rib fractures Anemia requiring multiple blood transfusion Dyslipidemia Memory loss Consult Attestations Medical Necessity Statement: Patient requires continued hospital stay for close monitoring and further management 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 of Care Code Acute Precision Inspector for [facility] History Detailed Exam Detailed Medical Decision Making High Complexity Diagnoses Abnormal nuclear cardiac imaging test R93.1 Cardiac arrest due to underlying cardiac condition I46.2 Ischemic cardiomyopathy I25.5 Atherosclerotic heart disease of [place] coronary artery with other forms of angina pectoris I25.118 Septic arthritis due to Streptococcus species M00.20
[2021-08-28] MEDS: lidocaine 5% Patch 1 PATCH TOPICAL (20:11)
[2021-08-28 20:56] LABS: Glucose Point of Care 161 mg/dL (70-110)
--- NOTE | 2021-08-28 21:22 | PC.NURSE ---
Transfer Patient transferred to CSU bed 275 via bed with 2x assist. All patient belongings placed at patient bedside. Receiving nurse aware of arrival. All vitals stable at time of transfer.
[2021-08-28 21:29] LABS: Glucose Point of Care 150 mg/dL (70-110)
[2021-08-28] MEDS: clopidogrel 300 mg Tablet PO (22:23)
[2021-08-28] MEDS: enoxaparin 40 mg/0.4 mL Syringe SUBCUT (22:23)
[2021-08-29] VITALS (9 sets, daily range): BP systolic 135–152; BP diastolic 80–97; PULSE 77–92; RESP 16–22; TEMP 36.7–37.2; O2SAT 90–97
[2021-08-29 04:27] LABS: Basophils % 0.2 %; Eosinophils # 0.1 10^3/uL (0.0-0.8); Eosinophils % 2.3 %; Hematocrit 25.5 % (42.0-52.0); Hemoglobin 8.4 g/dL (11.7-16.6); Lymphocytes # 1.9 10^3/uL (0.8-4.8); Lymphocytes % 31.9 %; Mean Corpuscular HGB Conc 32.9 g/dL (30.0-36.0); Mean Corpuscular Hemoglobin 29.8 pg (28.0-34.0); Mean Corpuscular Volume 90.4 fl (80-94); Mean Platelet Volume 9.2 fL (7.4-10.4); Monocytes # 0.6 10^3/uL (0.2-0.9); Monocytes % 9.7 %; Neutrophils # 3.32 10^3/uL (1.8-7.7); Neutrophils % 55.6 %; Nucleated Red Blood Cells % 0 %; Platelet Count 281 10^3/cmm (130-400); Red Blood Count 2.82 10^6/uL (4.1-5.3); Red Cell Distribution Width 13.5 % (12.1-15.1)
[2021-08-29 04:46] LABS: Alanine Aminotransferase < 5 U/L (0-41); Albumin Level 3.2 g/dL (3.5-5.2); Alkaline Phosphatase 119 IU/L (40-130); Anion Gap 13.8 (5-19); Aspartate Amino Transferase 21 U/L (0-40); Blood Urea Nitrogen 15 mg/dL (8-23); Calcium 8.6 mg/dL (8.5-10.5); Carbon Dioxide 29 mmol/L (22-29); Chloride 96 mmol/L (98-107); Globulin 4.6 g/dL (1.3-4.6); Glomerular Filtration Rate 84.7 mL/min (90-130); Glucose 98 mg/dL (65-115); Magnesium 1.3 mg/dL (1.7-2.3); Osmolality Calculated 281 mOsm/kg (285-295); Potassium 3.8 mmol/L (3.5-5.1); Sodium 135 mmol/L (136-145); Total Protein 7.8 g/dL (6.6-8.7)
[2021-08-29 06:30] LABS: Glucose Point of Care 125 mg/dL (70-110)
--- NOTE | 2021-08-29 08:17 | P.PN_ITS ---
Subjective Subjective: Seen this morning. No acute events overnight. Stress test completed yesterday. Cardiology on board. Chest pain-free this morning. Doing okay. Therapeutic Lovenox. Yesterday. He is on aspirin and Plavix now. States his pain is related to his breathing and at times it happens even when he is not taking deep breaths. He is unsure if is related to heart or his rib fractures. Vitals/I&O/Wt Last Vital Signs Temp 98.4 F 08/29/21 04:00 Pulse 82 08/29/21 06:00 Resp 18 08/29/21 04:00 BP 150/84 08/29/21 04:00 Pulse Ox 94 08/29/21 04:00 08/28/21 08/29/21 08/29/21 22:59 06:59 14:59 Intake Total 400 / 800 Output Total 1050 / 2250 260 / 2510 1000 / 1000 Balance -650 / -1450 -260 / -1710 -1000 / -1000 Weight last 48 hrs Weight 122.47 kg Weight 122.969 kg Physical Exam Narrative: General: Alert oriented x3, patient seen this morning. Laying in bed comfortably at this time. HEENT: Normocephalic, atraumatic, EOMI, breathing normally on room air Cardio: Regular rate rhythm, normal S1-S2, chest pain reproducible to palpation Respiratory: Good bilateral air entry, no wheezes no rhonchi appreciated GI: Abdomen soft, nontender, nondistended, bowel sounds + Extremities: Trace lower extremity edema, no cyanosis, left knee wrapped with Band-Aid. Data : 08/29/21 04:05 08/29/21 04:05 A&P Assessment and plan (1) Septic arthritis due to Streptococcus species: Status: Acute (2) Atherosclerotic heart disease of [place] coronary artery with other forms of angina pectoris: Status: Acute (3) Cardiac arrest due to underlying cardiac condition: Status: Acute (4) Ischemic cardiomyopathy: Status: Acute (5) Abnormal nuclear cardiac imaging test: Status: Acute (6) MSSA bacteremia: Status: Acute (7) Septic arthritis: Status: Acute (8) Cardiomyopathy: Status: Acute Qualifiers: Cardiomyopathy type: unspecified Qualified Code(s): I42.9 - Cardiomyopathy, unspecified (9) Chest pain: Status: Acute Qualifiers: Chest pain type: unspecified Qualified Code(s): R07.9 - Chest pain, unspecified (10) Hyperlipidemia: Status: Acute (11) Hypertension: Status: Acute Qualifiers: Hypertension type: primary hypertension Qualified Code(s): I10 - Essential (primary) hypertension (12) Coronary artery disease: Status: Acute Qualifiers: Associated angina: with unspecified angina Coronary Disease-Associated Artery/Lesion type: [place] artery [place] vs. transplanted heart: [place] heart Qualified Code(s): I25.119 - Atherosclerotic heart disease of [place] coronary artery with unspecified angina pectoris (13) GERD (gastroesophageal reflux disease): Status: Acute Qualifiers: Esophagitis presence: esophagitis presence not specified Qualified Code(s): K21.9 - Gastro-esophageal reflux disease without esophagitis (14) Tobacco abuse: Status: Acute (15) Decubital ulcer: Status: Acute (16) Diabetes: Status: Acute Qualifiers: Diabetes mellitus complication status: without complication Diabetes mellitus intermission coordinator insulin use: without intermission coordinator use Diabetes mellitus type: type 2 Qualified Code(s): E11.9 - Type 2 diabetes mellitus without complications Plan #Chest pain #History of coronary artery disease with AI to RCA #History of PEA cardiac arrest at [facility] #Rib fractures secondary to ACLS #Sternal fracture secondary to ACLS #Hypertension #Hyperlipidemia. 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 Ken as an outpatient. Patient was at [facility] where he was assessed and managed for left knee septic arthritis, MSSA bacteremia with hospitalization complicated by PEA cardiac arrest requiring ACLS achievement of ROSC in about 5 minutes subsequently with hypotension requiring vasopressors. Patient had ANTHONY which showed EF 15 to 20% range. -Records did not show patient having any angiogram. However patient's told cardiology that patient had all kind of cardiac work-up at [facility]. We have requested for new records. Limited echo done yesterday showed EF 3035% with global hypokinesis. Does show hypokinetic right ventricle as well. -Cardiology on board. Continue aspirin, Plavix. Stop subcu Lovenox. Continue Coreg. Lasix 40 daily -Further management after records reviewed by cardiology. #Left knee septic arthritis, MSSA bacteremia #Diabetes mellitus, insulin-dependent #GERD #Questionable fluid around spleen, assessed by general surgery recommended conservative management at [facility]. -History of TKA 2014. Underwent left knee hardware removal and cement spacer placement of left knee. PICC line placed before discharge. ID recommended to continue cefazolin every 8 hours until 09/23. PICC line to stay in until follow- up with ID. ? Patient placed on oral vancomycin as prophylaxis against C. difficile per documentation. ? Patient does have appointments for follow-up with ID in September. He also has follow-up with cardiology and orthopedics as an outpatient. I will review his records to ensure all appointments are scheduled and I will document them. -Continue cefazolin ? Continue dressing changes. Limited resuscitation. Okay to do CPR but DO NOT INTUBATE. Patient stated to do 2 cycles of CPR and if not resuscitated then stop. DVT prophylaxis: Lovenox 40 daily Attestations Medical Necessity Statement*: Will need to stay in hospital for management of chest pain and possible further cardiac work-up. 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 of Care Code Acute Diving Board Assembler for [facility] Fwd Diagnoses Septic arthritis due to Streptococcus species M00.20 Atherosclerotic heart disease of [place] coronary artery with other forms of angina pectoris I25.118 Cardiac arrest due to underlying cardiac condition I46.2 Ischemic cardiomyopathy I25.5 Abnormal nuclear cardiac imaging test R93.1 MSSA bacteremia R78.81; B95.61 Septic arthritis M00.9 Cardiomyopathy I42.9 Cardiomyopathy type: unspecified Chest pain R07.9 Chest pain type: unspecified Hyperlipidemia E78.5 Hypertension I10 Hypertension type: primary hypertension Coronary artery disease I25.119 Associated angina: with unspecified angina Coronary Disease-Associated Artery/Lesion type: [place] artery [place] vs. transplanted heart: [place] heart GERD (gastroesophageal reflux disease) K21.9 Esophagitis presence: esophagitis presence not specified Tobacco abuse Z72.0 Decubital ulcer L89.90 Diabetes E11.9 Diabetes mellitus complication status: without complication Diabetes mellitus intermission coordinator insulin use: without intermission coordinator use Diabetes mellitus type: type 2
[2021-08-29] MEDS: magnesium sulfate premix 4 GM/100 ML PREMIX IV (08:44)
[2021-08-29] MEDS: gabapentin 100 mg Capsule PO ×3 (08:45→20:16)
[2021-08-29] MEDS: clopidogrel 75 mg Tablet PO (08:45)
[2021-08-29] MEDS: famotidine 20 mg Tablet PO ×2 (08:45→17:29)
[2021-08-29] MEDS: fluoxetine 20 mg Capsule 40 MG PO (08:45)
[2021-08-29] MEDS: carvedilol 6.25 mg Tablet PO ×2 (08:45→18:24)
[2021-08-29] MEDS: lactobacillus 1 Tablet 1 TAB PO ×2 (08:45→17:28)
[2021-08-29] MEDS: hyDRALAzine 25 mg Tablet PO ×3 (08:45→20:16)
[2021-08-29] MEDS: FUROsemide 40 mg Tablet PO (08:45)
[2021-08-29] MEDS: lidocaine 5% Patch 1 PATCH TOPICAL (08:45)
[2021-08-29] MEDS: aspirin 81 mg EC Tablet PO (08:45)
[2021-08-29] MEDS: fluticasone nasal spray 16gm Btl 2 SPRAY NASAL (09:12)
[2021-08-29] MEDS: ondansetron 2 mg/ML SDV 2 mL 4 MG IVP ×2 (09:12→20:17)
--- NOTE | 2021-08-29 11:04 | PC.CHAP ---
Pastoral Care Encounter/Spiritual Assessment Type of Contact [] Declined auto damage trainee visit [] Patient/Family/Request visit [] Outpatient visit [] Follow-up visit [] Physician referral [] Code/Alert [x] Routine visit [] Staff referral [] Actively dying [] Patient sleeping [] Family support [] [] Out of room [] Palliative care [] [] Receiving care in room [] Pre-surgical visit [] Trauma [x] Long length of stay [] ICU visit [] Other: Relational/Emotional Strength [] Patient feels connected with others/family/visitors/staff [] Distress [] Loneliness/isolation [] Abandonment Spirituality of Patient [x] Person of Gema [] Attends Lutheran of their Gema [x] Believes in Prayer [] Reads Bible or Muslim materials [] There are Spiritual issues to be addressed Script Editor Interventions [x] Prayer [x] Active listening [x] Non-anxious presence [x] Spiritual/emotional support [] Crisis/trauma care [x] Spiritual counseling [] Bereavement support [] Provided bereavement packet [] Provided Bible/devotional materials [] Provided toy/stuffed animal, coloring book to patient or family member [] Provided Communion [] Anointing/[place] [] Salvation [x] Completed spiritual assessment [] Other: Impact on Illness or Injury [] Angry [] Fearful [x] Anxious [] Often cries [] Exhaustion [x] Unable to work [] Unable to attend mosque [] Unable to walk/stand [] Unable to read [] Unable to drive [] Unable to eat/drink [] Unable to sleep [] Unable to be with family [] Patient intubated [] Other: Summary unable to ommunicat about her health with staff care not sure about when she well go home Time spent with patient 10 mins
[2021-08-29 12:22] LABS: Glucose Point of Care 142 mg/dL (70-110)
[2021-08-29] MEDS: ceFAZolin 2,000 MG in sodium chloride 0.9% (plus) 50 ML 100 MG IV ×3 (13:22→20:39)
[2021-08-29] MEDS: insulin lispro 100 unit/1 mL SUBCUT ×3 (13:23→20:39)
[2021-08-29 17:30] LABS: Glucose Point of Care 184 mg/dL (70-110)
--- NOTE | 2021-08-29 17:55 | P.PN_ITS ---
Subjective Subjective: The patient is mainly complaining of chest wall pain. We still have not received any report of the cardiac catheterization from [place]. Denies any unusual shortness of breath. Blood pressure is elevated, stage II. Medications: Medication Review Details: Current Medications Acetaminophen (Acetaminophen 325 Mg Tablet) 650 mg PO Q6H PRN PRN Reason: Mild/Mod Pain Or Temp >/= 101 Aspirin (Aspirin 81 Mg Ec Tablet) 81 mg PO DAILY [facility] Last Admin: 08/29/21 08:45 Dose: 81 mg Documented by: Carvedilol (Carvedilol 6.25 Mg Tablet) 6.25 mg PO BID [facility] Last Admin: 08/29/21 08:45 Dose: 6.25 mg Documented by: Clopidogrel Bisulfate (Clopidogrel 75 Mg Tablet) 75 mg PO DAILY [facility] Last Admin: 08/29/21 08:45 Dose: 75 mg Documented by: Dextrose (Dextrose 50% Syringe 50 Ml) 25 ml IVP ONCE PRN; Protocol PRN Reason: hypoglycemia protocol Dextrose (Dextrose 50% Syringe 50 Ml) 50 ml IVP PRN PRN; Protocol PRN Reason: hypoglycemia protocol Enoxaparin Sodium (Enoxaparin 40 Mg/0.4 Ml Syringe) 40 mg SUBCUT Q24H [facility] Last Admin: 08/28/21 22:23 Dose: 40 mg Documented by: Famotidine (Famotidine 20 Mg Tablet) 20 mg PO BID [facility] Last Admin: 08/29/21 17:29 Dose: 20 mg Documented by: Fluoxetine HCl (Fluoxetine 20 Mg Capsule) 40 mg PO DAILY [facility] Last Admin: 08/29/21 08:45 Dose: 40 mg Documented by: Fluticasone Propionate (Fluticasone Nasal [place] 16gm Btl) 2 spray NASAL DAILY [facility] Last Admin: 08/29/21 09:12 Dose: 2 spray Documented by: Furosemide (Furosemide 40 Mg Tablet) 40 mg PO DAILY@0800 [facility] Last Admin: 08/29/21 08:45 Dose: 40 mg Documented by: Gabapentin (Gabapentin 100 Mg Capsule) 100 mg PO TID [facility] Last Admin: 08/29/21 15:42 Dose: 100 mg Documented by: Glucagon (Glucagon 1 Mg/Ml Inj 1 Ml) 1 mg IM ONCE PRN; Protocol PRN Reason: Adult Acute Hypoglycemia Prot. Hydralazine HCl (Hydralazine 25 Mg Tablet) 25 mg PO TID [facility] Last Admin: 08/29/21 15:42 Dose: 25 mg Documented by: Dextrose (D5w) 500 mls @ 100 mls/hr IV ONCE PRN; Protocol PRN Reason: Adult Acute Hypoglycemia Prot Cefazolin Sodium 2,000 mg/ (Sodium Chloride) 50 mls @ 100 mls/hr IV Q8H [facility] Last Infusion: 08/29/21 13:55 Dose: Infused Documented by: Insulin Human Lispro (Insulin Lispro 100 Unit/1 Ml) 0 unit SUBCUT WM&BEDTIME [facility]; Protocol Last Admin: 08/29/21 13:23 Dose: 2 unit Documented by: Lactobacillus Acidophilus (Lactobacillus 1 Tablet) 1 tab PO BID [facility] Last Admin: 08/29/21 17:28 Dose: 1 tab Documented by: Lidocaine (Lidocaine 5% Patch) 1 patch TOPICAL [id number] [facility] Last Admin: 08/29/21 08:45 Dose: 1 patch Documented by: Lorazepam (Lorazepam 2 Mg/Ml Inj 1 Ml) 0.25 mg IVP Q4H PRN PRN Reason: ANXIETY Last Admin: 08/28/21 22:23 Dose: 0.25 mg Documented by: Ondansetron HCl (Ondansetron 2 Mg/Ml Sdv 2 Ml) 4 mg IVP Q8H PRN PRN Reason: vomiting, or N/V if npo Last Admin: 08/29/21 09:12 Dose: 4 mg Documented by: Ondansetron HCl (Ondansetron 2 Mg/Ml Sdv 2 Ml) 4 mg IVP Q2M PRN PRN Reason: NAUSEA Vancomycin HCl (Vancomycin 1,000 Mg Oral Radha (Btl)) 125 mg PO BID [facility] Last Admin: 08/29/21 09:13 Dose: 125 mg Documented by: Vitals/I&O/Wt Last Vital Signs Temp 98.3 F 08/29/21 11:18 Pulse 83 08/29/21 15:30 Resp 22 H 08/29/21 15:30 BP 135/97 08/29/21 15:30 Pulse Ox 93 08/29/21 15:30 08/29/21 08/29/21 08/29/21 06:59 14:59 22:59 Intake Total 1350 / 1350 Output Total 260 / 2510 2300 / 2300 Balance -260 / -1710 -950 / -950 Weight last 48 hrs Weight 270 lb Weight 271 lb 1.6 oz Physical Exam Narrative: GENERAL: The patient is alert and oriented times three. Not in any acute distress. HEENT: Moderate pallor. No icterus or lymphadenopathy.Oral cavity: There are no mucous membrane lesions. NECK: Trachea appears to be central. No masses noted. No JVD or thyromegaly appreciated. RESPIRATORY: Chest is symmetrical. No intercostals muscle retraction or any accessory muscle activation. Diffuse chest wall tenderness. Breath sounds are heard bilaterally No rales or rhonchi heard. No evidence of any consolidation. BREASTS: Deferred. HEART: The heart sounds are normal. No S3 or S4. No significant murmurs. No pericardial rub ABDOMEN: No vessel pulsations or distention. No tenderness. No organomegaly appreciated. Bowel sounds are normally heard. : Deferred. RECTAL: Deferred. LYMPHATIC: No lymphadenopathy noted in the neck. EXTREMITIES: No edema or cyanosis. No clubbing. MUSCULOSKELETAL: Diffuse swelling of the left knee which is bandaged SKIN: There are no significant rashes or ecchymosis NEUROPSYCHIATRIC: The patient is alert and oriented x3. Appears to be in a good mood. No tremors or rigidity noted. Data : 08/29/21 04:05 08/29/21 04:05 Other Labs: Laboratory Last Values WBC 6.0 10^3/uL (4.0-10.0) 08/29/21 04:05 RBC 2.82 10^6/uL (4.1-5.3) L 08/29/21 04:05 Hgb 8.4 g/dL (11.7-16.6) L 08/29/21 04:05 Hct 25.5 % (42.0-52.0) L 08/29/21 04:05 MCV 90.4 fl (80-94) 08/29/21 04:05 MCH 29.8 pg (28.0-34.0) 08/29/21 04:05 MCHC 32.9 g/dL (30.0-36.0) 08/29/21 04:05 RDW 13.5 % (12.1-15.1) 08/29/21 04:05 Plt Count 281 10^3/cmm (130-400) 08/29/21 04:05 MPV 9.2 fL (7.4-10.4) 08/29/21 04:05 Neut % (Auto) 55.6 % 08/29/21 04:05 Lymph % (Auto) 31.9 % 08/29/21 04:05 [place] % (Auto) 9.7 % 08/29/21 04:05 Eos % (Auto) 2.3 % 08/29/21 04:05 Baso % (Auto) 0.2 % 08/29/21 04:05 Neut # (Auto) 3.32 10^3/uL (1.8-7.7) 08/29/21 04:05 Lymph # (Auto) 1.9 10^3/uL (0.8-4.8) 08/29/21 04:05 [place] # (Auto) 0.6 10^3/uL (0.2-0.9) 08/29/21 04:05 Eos # (Auto) 0.1 10^3/uL (0.0-0.8) 08/29/21 04:05 Baso # (Auto) 0.0 10^3/uL (0.0-0.1) 08/29/21 04:05 Nucleated RBC % (auto) 0 % 08/29/21 04:05 Nucleated RBCs # 0.0 /100WBC 08/29/21 04:05 Sodium 135 mmol/L (136-145) L 08/29/21 04:05 Potassium 3.8 mmol/L (3.5-5.1) 08/29/21 04:05 Chloride 96 mmol/L (98-107) L 08/29/21 04:05 Carbon Dioxide 29 mmol/L (22-29) 08/29/21 04:05 Anion Gap 13.8 (5-19) 08/29/21 04:05 BUN 15 mg/dL (8-23) 08/29/21 04:05 Creatinine 0.9 mg/dL (0.7-1.2) 08/29/21 04:05 GFR Calculation 84.7 mL/min (90-130) L 08/29/21 04:05 Glucose 98 mg/dL (65-115) 08/29/21 04:05 POC Glucose 184 mg/dL (70-110) H 08/29/21 17:09 Calculated Osmolality 281 mOsm/kg (285-295) L 08/29/21 04:05 Calcium 8.6 mg/dL (8.5-10.5) 08/29/21 04:05 Magnesium 1.3 mg/dL (1.7-2.3) L 08/29/21 04:05 Magnesium Cancelled 08/29/21 04:05 Total Bilirubin 1.0 mg/dL (0.15-1.2) 08/29/21 04:05 AST 21 U/L (0-40) 08/29/21 04:05 ALT < 5 U/L (0-41) 08/29/21 04:05 Alkaline Phosphatase 119 IU/L (40-130) 08/29/21 04:05 Troponin T Gen 5 ng/L 23 ng/L (0-15) H 08/28/21 04:43 Total Protein 7.8 g/dL (6.6-8.7) 08/29/21 04:05 Albumin 3.2 g/dL (3.5-5.2) L 08/29/21 04:05 Globulin 4.6 g/dL (1.3-4.6) 08/29/21 04:05 A&P Assessment and plan (1) Abnormal nuclear cardiac imaging test: Patient has large areas of fixed defects with small to moderate area of reversi ble defects suggesting extensive medical scarring with some ischemia. Because of his recurrent episodes of chest pains, he may benefit from a cardiac catheterization to further evaluate his coronary status and decide on further management. However he had a recent cardiac catheterization at the [facility] in [facility], according to the patient's . We do not have any documentation of this in his chart. We will try to get those results from [place]. Status: Acute (2) Cardiac arrest due to underlying cardiac condition: The etiology is not clear. Septic shock, myocardial ischemia, heart failure etc. are contributing factors. Status: Acute (3) Ischemic cardiomyopathy: Patient used to have an LV ejection fraction of around 35% by echocardiogram before. Based on the report from the [facility] in [place], his ejection fraction dropped down to 15%. The repeat echocardiogram in her hospital revealed ejection fraction of 30 to 35%. Status: Acute (4) Atherosclerotic heart disease of [place] coronary artery with other forms of angina pectoris: After reviewing the medical records from the [facility] in [place], we may consider doing an angiogram to decide on further management. I will start him on Plavix 75 mg p.o. daily in addition to the baby aspirin. I may discontinue therapeutic dose of Lovenox and keep him on the DVT prophylaxis dose. Since there is no acute ischemic changes in the EKG or evidence of any myocardial injury, it may be appropriate to do so. Status: Acute (5) Septic arthritis due to Streptococcus species: Continue management as per the primary attending. Status: Acute Plan Other problems are Multiple rib fractures Anemia requiring multiple blood transfusion Dyslipidemia Memory loss We are still awaiting the cardiac catheterization report. After reviewing the report, further recommendations will be made Attestations Medical Necessity Statement*: Deferred to the primary 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 of Care Code Acute Manager Parking for g Fwd History Expanded Problem Focused Exam Detailed Medical Decision Making Moderate Complexity Diagnoses Abnormal nuclear cardiac imaging test R93.1 Cardiac arrest due to underlying cardiac condition I46.2 Ischemic cardiomyopathy I25.5 Atherosclerotic heart disease of [place] coronary artery with other forms of angina pectoris I25.118 Septic arthritis due to Streptococcus species M00.20
[2021-08-29] MEDS: LORazepam 2 mg/mL INJ 1 mL 0.25 MG IVP (20:16)
[2021-08-29] MEDS: enoxaparin 40 mg/0.4 mL Syringe SUBCUT (20:17)
[2021-08-29 20:55] LABS: Glucose Point of Care 179 mg/dL (70-110)
--- NOTE | 2021-08-29 20:59 | PC.NURSE ---
Double documentation with HS medications due to computer gliche.
--- NOTE | 2021-08-29 22:02 | XRR_ITS ---
PROCEDURE INFORMATION: Exam: XR Chest Exam date and time: 08/30/2021 1:37 AM Age: 65 years old Clinical indication: Patient HX: C/O cough. History of rib fractures. ; Additional info: Cough, recent rib fractures TECHNIQUE: Imaging protocol: Radiologic exam of the chest. Views: 1 view. COMPARISON: CR Ribs LEFT w PA Chest [id number] 05/23/2018 2:51 PM FINDINGS: Tubes, catheters and devices: A PICC line is placed via the right upper extremity with its tip at the level the superior cavoatrial junction. Lungs: There are some strandy opacities in the lower hemithoraces likely represents atelectasis. Pleural spaces: The left hemidiaphragm is obscured possibly secondary to a small left pleural effusion. Additionally, there is increased density seen in the retrocardiac region, finding that could represent a left basilar infiltrate and pneumonia. Heart/Mediastinum: Unremarkable. No cardiomegaly. Bones/joints: Unremarkable. XR/XR chest 1V portable [id number] IMPRESSION: 1. [place]andy opacities in the lower hemithoraces likely represents atelectasis. 2. Increased density in the retrocardiac region, findings that could represent a left basilar infiltrate and pneumonia. 3. The left hemidiaphragm is obscured possibly secondary to a left pleural effusion as well.
[2021-08-29] MEDS: benzonatate 100 mg Capsule PO (22:32)
--- NOTE | 2021-08-29 22:34 | PC.NURSE ---
Patient requesting something for cough. Informed Dr Lobo. Doctor to place orders.
[2021-08-30] VITALS (10 sets, daily range): BP systolic 129–149; BP diastolic 71–82; PULSE 71–85; RESP 15–20; TEMP 36.4–37.3; O2SAT 92–100
[2021-08-30] MEDS: ceFAZolin 2,000 MG in sodium chloride 0.9% (plus) 50 ML 100 MG IV ×3 (03:54→22:02)
[2021-08-30 04:22] LABS: Basophils % 0.2 %; Eosinophils # 0.1 10^3/uL (0.0-0.8); Eosinophils % 2.1 %; Hematocrit 25.3 % (42.0-52.0); Hemoglobin 8.6 g/dL (11.7-16.6); Lymphocytes # 2.1 10^3/uL (0.8-4.8); Lymphocytes % 36.5 %; Mean Corpuscular Hemoglobin 30.1 pg (28.0-34.0); Mean Corpuscular Volume 88.5 fl (80-94); Monocytes # 0.6 10^3/uL (0.2-0.9); Monocytes % 10.1 %; Neutrophils # 2.92 10^3/uL (1.8-7.7); Neutrophils % 50.8 %; Nucleated Red Blood Cells % 0 %; Platelet Count 276 10^3/cmm (130-400); Red Blood Count 2.86 10^6/uL (4.1-5.3); Red Cell Distribution Width 13.4 % (12.1-15.1); White Blood Count 5.8 10^3/uL (4.0-10.0)
[2021-08-30 04:44] LABS: Alanine Aminotransferase < 5 U/L (0-41); Albumin Level 3.1 g/dL (3.5-5.2); Alkaline Phosphatase 118 IU/L (40-130); Anion Gap 14.5 (5-19); Aspartate Amino Transferase 18 U/L (0-40); Blood Urea Nitrogen 13 mg/dL (8-23); Calcium 8.6 mg/dL (8.5-10.5); Carbon Dioxide 27 mmol/L (22-29); Chloride 96 mmol/L (98-107); Globulin 4.5 g/dL (1.3-4.6); Glomerular Filtration Rate 84.7 mL/min (90-130); Glucose 112 mg/dL (65-115); Magnesium 1.7 mg/dL (1.7-2.3); Osmolality Calculated 279 mOsm/kg (285-295); Potassium 3.5 mmol/L (3.5-5.1); Sodium 134 mmol/L (136-145); Total Bilirubin 0.9 mg/dL (0.15-1.2); Total Protein 7.6 g/dL (6.6-8.7)
[2021-08-30] MEDS: acetaminophen 325 mg Tablet 650 MG PO ×3 (04:51→22:02)
[2021-08-30] MEDS: ondansetron 2 mg/ML SDV 2 mL 4 MG IVP ×2 (05:00→10:57)
[2021-08-30 06:39] LABS: Glucose Point of Care 125 mg/dL (70-110)
--- NOTE | 2021-08-30 08:54 | P.PN_ITS ---
Subjective Subjective: Patient is still having on and off chest pain symptoms. Records received from [place] reveal coronary angiogram was not performed there. Vitals/I&O/Wt Last Vital Signs Temp 99.2 F 08/30/21 08:00 Pulse 71 08/30/21 08:00 Resp 15 08/30/21 08:00 BP 146/79 08/30/21 08:00 Pulse Ox 100 08/30/21 08:00 08/29/21 08/30/21 08/30/21 22:59 06:59 14:59 Intake Total 990 / 2340 Output Total 360 / 2660 950 / 3610 Balance 630 / -320 -950 / -1270 Weight last 48 hrs Weight 273 lb Weight 270 lb Physical Exam Const: OTHER: GENERAL: Patient is alert, awake and oriented x3. [] NECK: No jugular vein distension. [] HEENT: No cyanosis. No icterus. No pallor. [] HEART: Regular S1 and S2. No murmur, rub or gallop. [] LUNGS: Clear to auscultate bilaterally. [] ABDOMEN: Soft, nontender and nondistended. Positive bowel sounds. No guarding, rebound or tenderness. [] CENTRAL NERVOUS SYSTEM: Grossly nonfocal. [] EXTREMITIES: Lower extremities with 1+ edema bilaterally. Pulses palpable in the lower extremities, both dorsalis pedis and posterior tibial. [] Data : 08/31/21 03:25 08/31/21 03:25 A&P Assessment and plan (1) Abnormal nuclear cardiac imaging test: Patient has large areas of fixed defects with small to moderate area of reversible defects suggesting extensive medical scarring with rolan-infarct ischemia. Because of his recurrent episodes of chest pains, plan is to perform coronary angiogram tomorrow as angiogram was not performed since his cardiac arrest. Status: Acute (2) Cardiac arrest due to underlying cardiac condition: The etiology is not clear. Was actively infected at that time that could be contributing. Status: Acute (3) Ischemic cardiomyopathy: Patient used to have an LV ejection fraction of around 35% by echocardiogram before. Based on the report from the [facility] in [place], his ejection fraction dropped down to 15%. Current hospitalization echocardiogram reveals EF of 30 to 35%. Status: Acute (4) Atherosclerotic heart disease of [place] coronary artery with other forms of angina pectoris: Plan for coronary angiogram tomorrow. Status: Acute (5) Septic arthritis due to Streptococcus species: Continue management as per the primary attending. Status: Acute Plan Other problems are Multiple rib fractures Anemia requiring multiple blood transfusion Dyslipidemia Memory loss Plan is for performing coronary angiogram tomorrow. Attestations 2 Medical Necessity Statement*: Care expected to cross 2 midnights. 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
[2021-08-30] MEDS: lidocaine 5% Patch 1 PATCH TOPICAL (09:17)
[2021-08-30] MEDS: FUROsemide 40 mg Tablet PO (09:18)
[2021-08-30] MEDS: fluoxetine 20 mg Capsule 40 MG PO (09:18)
[2021-08-30] MEDS: lactobacillus 1 Tablet 1 TAB PO ×2 (09:18→18:13)
[2021-08-30] MEDS: aspirin 81 mg EC Tablet PO (09:18)
[2021-08-30] MEDS: gabapentin 100 mg Capsule PO ×3 (09:18→22:02)
[2021-08-30] MEDS: famotidine 20 mg Tablet PO ×2 (09:18→18:07)
[2021-08-30] MEDS: hyDRALAzine 25 mg Tablet PO ×3 (09:18→22:02)
[2021-08-30] MEDS: fluticasone nasal spray 16gm Btl 2 SPRAY NASAL (09:19)
[2021-08-30] MEDS: carvedilol 6.25 mg Tablet PO ×2 (09:19→18:07)
[2021-08-30] MEDS: clopidogrel 75 mg Tablet PO (09:19)
[2021-08-30 11:33] LABS: Glucose Point of Care 124 mg/dL (70-110)
--- NOTE | 2021-08-30 12:29 | PM.PN ---
Subjective Subjective: Seen this AM. iscussed with today. No angiogram done at [place], mo. records reviewed and no evidence of cath plan for angio tomorrow updated and patient no acute events overnight. pt doing ok. still has intermittent chest pain. denies cough, shortness of breath Vitals/I&O/Wt Last Vital Signs Temp 98.0 F 08/30/21 12:00 Pulse 73 08/30/21 12:00 Resp 20 H 08/30/21 12:00 BP 136/82 08/30/21 12:00 Pulse Ox 100 08/30/21 12:00 08/29/21 08/30/21 08/30/21 22:59 06:59 14:59 Intake Total 990 / 2340 Output Total 360 / 2660 950 / 3610 1150 / 1150 Balance 630 / -320 -950 / -1270 -1150 / -1150 Weight last 48 hrs Weight 123.831 kg Weight 122.47 kg Physical Exam Narrative: General: Alert oriented x3, patient seen this morning.? Laying in bed comfortably at this time. HEENT: Normocephalic, atraumatic, EOMI, breathing normally on room air Cardio: Regular rate rhythm, normal S1-S2, chest pain reproducible to palpation Respiratory: Good bilateral air entry, no wheezes no rhonchi appreciated GI: Abdomen soft, nontender, nondistended, bowel sounds + Extremities: Trace lower extremity edema, no cyanosis, left knee wrapped with Band-Aid. ? Data : 08/30/21 03:47 08/30/21 03:47 A&P Assessment and plan (1) Septic arthritis due to Streptococcus species: Status: Acute (2) Atherosclerotic heart disease of [place] coronary artery with other forms of angina pectoris: Status: Acute (3) Ischemic cardiomyopathy: Status: Acute (4) Abnormal nuclear cardiac imaging test: Status: Acute (5) Decubital ulcer: Status: Acute (6) MSSA bacteremia: Status: Acute (7) Septic arthritis: Status: Acute (8) Tobacco abuse: Status: Acute (9) Cardiomyopathy: Status: Acute Qualifiers: Cardiomyopathy type: unspecified Qualified Code(s): I42.9 - Cardiomyopathy, unspecified (10) Chest pain: Status: Acute Qualifiers: Chest pain type: unspecified Qualified Code(s): R07.9 - Chest pain, unspecified (11) Hyperlipidemia: Status: Acute (12) Coronary artery disease: Status: Acute Qualifiers: Coronary Disease-Associated Artery/Lesion type: [place] artery [place] vs. transplanted heart: [place] heart Associated angina: with unspecified angina Qualified Code(s): I25.119 - Atherosclerotic heart disease of [place] coronary artery with unspecified angina pectoris (13) Diabetes: Status: Acute Qualifiers: Diabetes mellitus type: type 2 Diabetes mellitus [facility] use: without [facility] use Diabetes mellitus complication status: without complication Qualified Code(s): E11.9 - Type 2 diabetes mellitus without complications (14) GERD (gastroesophageal reflux disease): Status: Acute Qualifiers: Esophagitis presence: esophagitis presence not specified Qualified Code(s): K21.9 - Gastro-esophageal reflux disease without esophagitis (15) Hypertension: Status: Acute Qualifiers: Hypertension type: primary hypertension Qualified Code(s): I10 - Essential (primary) hypertension Plan #Chest pain #History of coronary artery disease with AI to RCA #History of PEA cardiac arrest at [facility] #Rib fractures secondary to ACLS #Sternal fracture secondary to ACLS #Hypertension #Hyperlipidemia. 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 Ken as an outpatient.? Patient was at [facility] where he was assessed and managed for left knee septic arthritis, MSSA bacteremia with hospitalization complicated by PEA cardiac arrest requiring ACLS achievement of ROSC in about 5 minutes subsequently with hypotension requiring vasopressors.? Patient had ANTHONY which showed EF 15 to 20% range. -Records did not show patient having any angiogram.? However patient's told cardiology that patient had all kind of cardiac work-up at [facility].? We have requested for new records.? Limited echo done yesterday showed EF 3035% with global hypokinesis.? Does show hypokinetic right ventricle as well. -Cardiology on board.? Continue aspirin, Plavix.? Stop subcu Lovenox.? Continue Coreg.? Lasix 40 daily -Further management after records reviewed. No evidence of cath at previous hospital - Plan for cardiac angiogram with potential PCI in AM. - NPO at midnight #Left knee septic arthritis, MSSA bacteremia #Diabetes mellitus, insulin-dependent #GERD #Questionable fluid around spleen, assessed by general surgery recommended conservative management at [facility]. -History of TKA 2014.? Underwent left knee hardware removal and cement spacer placement of left knee.? PICC line placed before discharge.? ID recommended to continue cefazolin every 8 hours until 09/23.? PICC line to stay in until follow-up with ID. ? Patient placed on oral vancomycin as prophylaxis against C. difficile per documentation. ? Patient does have appointments for follow-up with ID in September.? He also has follow-up with cardiology and orthopedics as an outpatient.? I will review his records to ensure all appointments are scheduled and I will document them. -Continue cefazolin ? Continue dressing changes. Limited resuscitation.? Okay to do CPR but DO NOT INTUBATE.? Patient stated to do 2 cycles of CPR and if not resuscitated then stop. DVT prophylaxis: Lovenox 40 daily Attestations Medical Necessity Statement*: Will need to stay in hospital for management of chest pain and possible further cardiac work-up. 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[facility] Diagnoses Septic arthritis due to Streptococcus species M00.20 Atherosclerotic heart disease of [place] coronary artery with other forms of angina pectoris I25.118 Ischemic cardiomyopathy I25.5 Abnormal nuclear cardiac imaging test R93.1 Decubital ulcer L89.90 MSSA bacteremia R78.81; B95.61 Septic arthritis M00.9 Tobacco abuse Z72.0 Cardiomyopathy I42.9 Cardiomyopathy type: unspecified Chest pain R07.9 Chest pain type: unspecified Hyperlipidemia E78.5 Coronary artery disease I25.119 Coronary Disease-Associated Artery/Lesion type: [place] artery [place] vs. transplanted heart: [place] heart Associated angina: with unspecified angina Diabetes E11.9 Diabetes mellitus type: type 2 Diabetes mellitus [facility] use: without [facility] use Diabetes mellitus complication status: without complication GERD (gastroesophageal reflux disease) K21.9 Esophagitis presence: esophagitis presence not specified Hypertension I10 Hypertension type: primary hypertension
[2021-08-30] MEDS: potassium chloride ER 20 mEq Tablet 40 MEQ PO ×2 (13:39→13:40)
[2021-08-30] MEDS: benzonatate 100 mg Capsule PO ×2 (13:39→22:02)
[2021-08-30 17:27] LABS: Glucose Point of Care 178 mg/dL (70-110)
[2021-08-30] MEDS: LORazepam 2 mg/mL INJ 1 mL 0.25 MG IVP ×2 (18:08→22:01)
[2021-08-30 21:25] LABS: Glucose Point of Care 179 mg/dL (70-110)
[2021-08-30] MEDS: enoxaparin 40 mg/0.4 mL Syringe SUBCUT (22:03)
[2021-08-30] MEDS: insulin lispro 100 unit/1 mL SUBCUT (22:12)
[2021-08-31] VITALS (27 sets, daily range): BP systolic 126–159; BP diastolic 72–97; PULSE 75–105; RESP 13–24; TEMP 36.7–37.6; O2SAT 93–100
[2021-08-31] MEDS: LORazepam 2 mg/mL INJ 1 mL 0.25 MG IVP ×3 (02:57→21:22)
[2021-08-31] MEDS: acetaminophen 325 mg Tablet 650 MG PO ×2 (02:57→21:18)
[2021-08-31 03:40] LABS: Basophils % 0.2 %; Eosinophils # 0.2 10^3/uL (0.0-0.8); Hematocrit 29.2 % (42.0-52.0); Hemoglobin 9.1 g/dL (11.7-16.6); Lymphocytes # 2.2 10^3/uL (0.8-4.8); Lymphocytes % 36.9 %; Mean Corpuscular HGB Conc 31.2 g/dL (30.0-36.0); Mean Corpuscular Hemoglobin 29.4 pg (28.0-34.0); Mean Corpuscular Volume 94.2 fl (80-94); Mean Platelet Volume 8.8 fL (7.4-10.4); Monocytes # 0.5 10^3/uL (0.2-0.9); Monocytes % 8.5 %; Neutrophils # 3.06 10^3/uL (1.8-7.7); Neutrophils % 50.9 %; Nucleated Red Blood Cells % 0 %; Platelet Count 275 10^3/cmm (130-400); Red Cell Distribution Width 13.4 % (12.1-15.1)
[2021-08-31 03:59] LABS: Alanine Aminotransferase < 5 U/L (0-41); Albumin Level 3.5 g/dL (3.5-5.2); Alkaline Phosphatase 127 IU/L (40-130); Anion Gap 13.6 (5-19); Aspartate Amino Transferase 20 U/L (0-40); Blood Urea Nitrogen 12 mg/dL (8-23); Carbon Dioxide 29 mmol/L (22-29); Chloride 96 mmol/L (98-107); Globulin 4.7 g/dL (1.3-4.6); Glomerular Filtration Rate 84.7 mL/min (90-130); Glucose 103 mg/dL (65-115); Magnesium 1.6 mg/dL (1.7-2.3); Osmolality Calculated 280 mOsm/kg (285-295); Potassium 3.6 mmol/L (3.5-5.1); Sodium 135 mmol/L (136-145); Total Bilirubin 0.9 mg/dL (0.15-1.2); Total Protein 8.2 g/dL (6.6-8.7)
[2021-08-31] MEDS: ceFAZolin 2,000 MG in sodium chloride 0.9% (plus) 50 ML 100 MG IV ×3 (04:49→21:22)
--- NOTE | 2021-08-31 07:48 | XACV_ITS ---
Exam Room: 2 Ht: 196 cm Wt: 116 kg BSA: 2.53 m2 Gender: Male : 1955 Any Known Allergies: Penicillins Exam Priority: Routine Procedure(s): Procedure Description: Diagnostic procedure Procedure Description: PCI procedure Procedure Description: PTCA Procedure Description: Coronary Angiography Diagnostic Cath Status: Elective Diagnostic Findings * Left Main has no significant disease. * Circumflex has mid vessel significant 60 to 70% stenosis. This is a small sized vessel. A large OM1 takes off prior to the stenosis. Mid to OM vessel has moderate to severe 60 to 70% stenosis.. * Mid Left Anterior Descending: Chronic total occlusion, RISHI: 0 flow. A large size diagonal artery takes off prior to CHAIR FINISHER and is without significant disease.. * Mid to * distal Right Coronary Artery: significant 80% in-stent restenosis, RISHI: 3 flow. * Indication: Patient had a recent cardiac arrest. Has on and off chest discomfort symptoms. Stress test is abnormal. * Coronary angiography shows right dominance. PCI Status: Elective PCI Indication: Other Interventional Findings * Interventional procedure detail: We engaged RCA with JR4 guide catheter. IV heparin was administered to maintain ACT above 250 S. 0.014 run-through guidewire was used to cross mid to distal severe in-stent restenosis. We dilated the in-stent restenosis with a 4.5 x 12 mm noncompliant balloon. This was followed by dilation with 4.0 x 20 mm noncompliant balloon. This expanded the stent very well. At this time guidewire was removed and final angiogram was performed that showed excellent stent expansion, no residual stenosis and RISHI-3 flow. Guide catheter was removed and patient left the Internet Database Specialist in stable condition.. Conclusions 1. Severe multivessel coronary artery disease. CHAIR FINISHER from mid LAD. Severe in-stent restenosis on mid to distal RCA stent. Status post successful revascularization with balloon angioplasty. 2. Medical therapy decided for CHAIR FINISHER of LAD and moderate to severe OM stenosis. Recommendations * Aggressive risk factor modification. * Aspirin and Plavix for at least 1 year. * High intensity statin therapy. * Outpatient cardiology follow-up in 4 weeks. Interventional RX Recommendation: PCI w/o planned CABG Diagnostic RX Recommendation: PCI w/o planned CABG Anticoagulation: Heparin Pressures Phase:Rest AO : 84 / 51 ( 66 ) @ 9:54:00 AM 81 / 54 ( 66 ) @ 10:06:00 AM Clinical Evaluation EBL: 5mL-10mL Procedural Details Procedure Consent Obtained. Pre-Procedure Time Out. Identified patient by full name and date of as verbalized by the patient/guarantor. Does the consent match the physician's order: Yes. Accurate & Complete Informed Consent: Yes. Inpatient/Outpatient History & Physical on Chart: Yes. If H&P is completed, is and addenduem needed: No. Visualize and Verify Site with Patient/Guarantor: N/A. Relevant Radiology Images available: Yes. The risks, benefits, and alternatives of sedation and/or procedure were discussed by physician. The patient agrees to continue. Procedure started. [facility] Clinical Fraility Score: 4: Vulnerable. Internet Database Specialist Indications: Resuscitated Cardaic Arrest at another facility/CP/Abnormal Stress Test. Chest Pain Symptom Assessment: Atypical Angina. Cardiovascular Instability: No. Correct patient, site and procedure confirmed by cath team. PERRLA. Strong, equal hand gas furnace installer bilaterally. Lungs clear x 5 lobes. IV Site on Arrival: Double lumen PICC line to the right brachial vein. IV Fluids: 0.9% NaCl at KVO. 0 mL infused prior to lab support service tech. Pre Procedural Pulses: bilateral dorsalis pedis was 3+. Pre Procedural Pulses: bilateral posterior tibial was 3+. Pre Procedural Pulses: bilateral radial was 3+. Hemodynamics and oxygenation being managed by Anesthesia. right groin was prepped with chloroprep then draped in the usual sterile fashion. right radial was prepped with chloroprep then draped in the usual sterile fashion. Physician notified. Baseline sample Acquired. HR: 75 BPM. Patient's family waiting in room 275, stated that she might make her way to the lab support service tech waiting room . Physician arrived. Physician scrubbed in. Immediate Pre-Procedure Time Out. Correct Patient: Yes; Correct Procedure: Yes; Correct Site: Yes; Correct Patient Position: Yes; Correct Supplies: Yes; Dried Flammable Prep: Yes; Blood Products Available: N/A;. Lidocaine 1% infiltrated to the right radial. Arterial access obtained. A 5 estonian TIG catheter in over the standard wire. Multiple views taken of left coronary artery. Catheter redirected to the RCA. Multiple views taken of right coronary artery. Catheter removed over the standard wire. A 5 estonian JL4 catheter in over the standard wire. Multiple views taken of left coronary artery. Catheter removed over the standard wire. 6 estonian JR 4 guide catheter was inserted over the wire. Runthrough guidewire was advanced through the guide catheter to lesion in the mid RCA. Add inventory: Endoflator, Co-Relay Associate. Inflation number : 1 A MDT NC EUPHORA RX [id number] BALLOON was prepped and advanced across the Mid RCA , then inflated to 12 MACEY for 0:14 seconds. Inflation number: 2 The MDT NC EUPHORA RX [id number] BALLOON was reinflated across the Mid RCA, to 12 MACEY for 0:23 seconds. Inflation number: 3 The MDT NC EUPHORA RX [id number] BALLOON was reinflated across the Mid RCA, to 12 MACEY for 0:13 seconds. Results checked. Balloon out. Inflation number : 4 A MDT NC EUPHORA RX [id number] BALLOON was prepped and advanced across the Mid RCA , then inflated to 20 MACEY for 0:28 seconds. Balloon out. Wire out. Results checked. Guide catheter out. Dr. Emanuel reviewing cine. Dr. Emanuel scrubbed out. A TR Band was successful obtaining hemostatsis at the Right Radial artery insertion site. TR band placed. Hemostasis obtained. Post Procedure: Pulses reassessed and unchanged. PERRLA. Strong, equal hand gas furnace installer bilaterally. No VTE prophylaxis required. Medication's Wasted: Lidocaine 1% = 2 mL. Medication's Wasted: Nitro = 49.8 mg. Medication's Wasted: Heparin = 1000 units. Total IV fluids: 200 mL. PCI Indication: CAD (without ischemic symptoms). Post-op diagnosis: Severe in-stent restenosis of the Mid RCA s/p PTCA. Complications: none. Estimated blood loss: 5mL-10mL. Responsiveness - Normal response to verbal stimuli; alert and oriented, PERRLA. Airway - Unaffected, no intervention required; spontaneous ventilation. Circulation: W/N/L, pulses unchanged. Nausea/Vomiting: No. Procedure completed. Patient transferred by bed to [facility]. Vital chart was stopped. Access Site Site: Right Radial artery Sheath Size: 6 Fr Hemostasis Method: TR Band Hemostasis Success: Successful Procedure Medications Start: 8:44 AM Stop: 8:44 AM Medication: Nitrogylcerin Amount: 200 mcg Route: I.A. Start: 8:45 AM Stop: 8:45 AM Medication: Heparin Amount: 5000 units Route: I.V. Start: 8:58 AM Stop: 8:58 AM Medication: Heparin Amount: 5000 units Route: I.V. I, the attending physician, have reviewed and verified all procedure medications. Yes, all medications given per verbal order History/Risk Factors Hypertension: Yes Dyslipidemia: Yes Peripheral Arterial Disease (PAD): No Myocardial Infarction (AL): Yes Obesity: Yes Renal Disease: No Tobacco Use: Former Prior Interventions PCI: Yes CABG: No Valve Surgery: No Date of PCI: 02/15/2018 Report Signatures Finalized by Dirk Emanuel MD on 09/15/2021 01:01 PM
--- NOTE | 2021-08-31 08:37 | W.PM.OPSUD ---
Surgery/Procedure H&P Update DATE OF PROCEDURE: August 31, 2021 DATE H&P PERFORMED: 08/28/21 H&P UPDATE INFORMATION: I have reviewed H&P completed within last 30 days, I have examined patient prior to procedure and No changes to prior documentation PREOP DIAGNOSIS: Chest pain/abnormal stress test PRIMARY INDICATION FOR PROCEDURE: Chest pain/abnormal stress test PLANNED PROCEDURE: Operation Date: 08/31/21 08:30 Proposed Procedures p Cardiac Catheterization(Not Applicable) - Vipul Amaya percutaneous coronary intervention Anesthesia team performing sedation
--- NOTE | 2021-08-31 08:43 | P.PN_ITS ---
Subjective Subjective: Seen this morning. No acute events overnight. Patient went for cardiac catheterization today he did have in-stent restenosis in RCA. Balloon angioplasty was done. There was also mid circumflex lesion. Patient's is at bedside. Patient states he is feeling okay at this time and is resting. He was still under effect of sedation when I saw him. Patient was quite sleepy. Denied having any chest pain or shortness of breath at that time. Vitals/I&O/Wt Last Vital Signs Temp 98.1 F 08/31/21 07:57 Pulse 77 08/31/21 07:57 Resp 19 H 08/31/21 07:57 BP 141/87 08/31/21 07:57 Pulse Ox 97 08/31/21 07:57 08/30/21 08/31/21 08/31/21 22:59 06:59 14:59 Intake Total 100 / 860 Output Total 1400 / 2550 1000 / 3550 Balance -1300 / -1690 -1000 / -2690 Weight last 48 hrs Weight 116.301 kg Weight 123.831 kg Physical Exam Narrative: General: Alert oriented x3, patient seen this morning.? Laying in bed comfortably at this time. HEENT: Normocephalic, atraumatic, EOMI, breathing normally on room air Cardio: Regular rate rhythm, normal S1-S2, chest pain reproducible to palpation Respiratory: Good bilateral air entry, no wheezes no rhonchi appreciated GI: Abdomen soft, nontender, nondistended, bowel sounds + Extremities: Trace lower extremity edema, no cyanosis, left knee wrapped with Ba nd-Aid. Data : 08/31/21 03:25 08/31/21 03:25 A&P Assessment and plan (1) Septic arthritis due to Streptococcus species: Status: Acute (2) Atherosclerotic heart disease of [place] coronary artery with other forms of angina pectoris: Status: Acute (3) Ischemic cardiomyopathy: Status: Acute (4) Cardiac arrest due to underlying cardiac condition: Status: Acute (5) Abnormal nuclear cardiac imaging test: Status: Acute (6) MSSA bacteremia: Status: Acute (7) Tobacco abuse: Status: Acute (8) Septic arthritis: Status: Acute (9) Decubital ulcer: Status: Acute (10) Cardiomyopathy: Status: Acute Qualifiers: Cardiomyopathy type: unspecified Qualified Code(s): I42.9 - Cardiomyopathy, unspecified (11) Chest pain: Status: Acute Qualifiers: Chest pain type: unspecified Qualified Code(s): R07.9 - Chest pain, unspecified (12) Hyperlipidemia: Status: Acute (13) Hypertension: Status: Acute Qualifiers: Hypertension type: primary hypertension Qualified Code(s): I10 - Essential (primary) hypertension (14) Coronary artery disease: Status: Acute Qualifiers: Coronary Disease-Associated Artery/Lesion type: [place] artery [place] vs. transplanted heart: [place] heart Associated angina: with unspecified angina Qualified Code(s): I25.119 - Atherosclerotic heart disease of [place] coronary artery with unspecified angina pectoris (15) Diabetes: Status: Acute Qualifiers: Diabetes mellitus type: type 2 Diabetes mellitus residential insulin use: without residential use Diabetes mellitus complication status: without complication Qualified Code(s): E11.9 - Type 2 diabetes mellitus without complications (16) GERD (gastroesophageal reflux disease): Status: Acute Qualifiers: Esophagitis presence: esophagitis presence not specified Qualified Code(s): K21.9 - Gastro-esophageal reflux disease without esophagitis Plan #Chest pain secondary to RCA in-stent restenosis status post balloon angioplasty 08/31 #History of coronary artery disease with AI to RCA #History of PEA cardiac arrest at [facility] #Rib fractures secondary to ACLS #Sternal fracture secondary to ACLS #Hypertension #Hyperlipidemia. 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 Ken as an outpatient.? Patient was at [facility] where he was assessed and managed for left knee septic arthritis, MSSA bacteremia with hospitalization complicated by PEA cardiac arrest requiring ACLS achievement of ROSC in about 5 minutes subsequently with hypotension requiring vasopressors.? Patient had ANTHONY which showed EF 15 to 20% range. -Records did not show patient having any angiogram.? However patient's told cardiology that patient had all kind of cardiac work-up at [facility].? We have requested for new records.? Limited echo done yesterday showed EF 3035% wit h global hypokinesis.? Does show hypokinetic right ventricle as well. -Cardiology on board.? Continue aspirin, Plavix.? Stop subcu Lovenox.? Continue Coreg.? Lasix 40 daily -Further management after records reviewed. No evidence of cath at previous hospital -Patient is status post balloon angioplasty. He will require LifeVest at discharge. Continue to monitor patient in the hospital. #Left knee septic arthritis, MSSA bacteremia #Diabetes mellitus, insulin-dependent #GERD #Questionable fluid around spleen, assessed by general surgery recommended conservative management at [facility]. -History of TKA 2014.? Underwent left knee hardware removal and cement spacer placement of left knee.? PICC line placed before discharge.? ID recommended to continue cefazolin every 8 hours until 09/23.? PICC line to stay in until follow- up with ID. ? Patient placed on oral vancomycin as prophylaxis against C. difficile per documentation. ? Patient does have appointments for follow-up with ID in September.? He also has follow-up with cardiology and orthopedics as an outpatient.? I will review his records to ensure all appointments are scheduled and I will document them. -Continue cefazolin ? Continue dressing changes. Limited resuscitation.? Okay to do CPR but DO NOT INTUBATE.? Patient stated to do 2 cycles of CPR and if not resuscitated then stop. DVT prophylaxis: Lovenox 40 daily Attestations Medical Necessity Statement*: Patient is status post angioplasty procedure today. He will need to stay in the hospital for monitoring and postprocedure care. He will also require LifeVest prior to discharge. He can go back to [facility] for rehab once medically discharged. 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 Assembly Line for [facility] Diagnoses Septic arthritis due to Streptococcus species M00.20 Atherosclerotic heart disease of [place] coronary artery with other forms of angina pectoris I25.118 Ischemic cardiomyopathy I25.5 Cardiac arrest due to underlying cardiac condition I46.2 Abnormal nuclear cardiac imaging test R93.1 MSSA bacteremia R78.81; B95.61 Tobacco abuse Z72.0 Septic arthritis M00.9 Decubital ulcer L89.90 Cardiomyopathy I42.9 Cardiomyopathy type: unspecified Chest pain R07.9 Chest pain type: unspecified Hyperlipidemia E78.5 Hypertension I10 Hypertension type: primary hypertension Coronary artery disease I25.119 Coronary Disease-Associated Artery/Lesion type: [place] artery [place] vs. transplanted heart: [place] heart Associated angina: with unspecified angina Diabetes E11.9 Diabetes mellitus type: type 2 Diabetes mellitus residential insulin use: without residential use Diabetes mellitus complication status: without complication GERD (gastroesophageal reflux disease) K21.9 Esophagitis presence: esophagitis presence not specified
--- NOTE | 2021-08-31 08:48 | ANES.PREANE2 ---
Pre-Anesthetic Assessment Height/Weight: Height 1.96 m Weight 116.301 kg Temp Pulse Resp BP Pulse Ox 98.1 F 77 19 H 141/87 97 08/31/21 07:57 08/31/21 07:57 08/31/21 07:57 08/31/21 07:57 08/31/21 07:57 Preop Diagnosis: Chest pain/abnormal stress test Operation Date: 08/31/21 08:30 Proposed Procedures p Cardiac Catheterization(Not Applicable) - Vipul Amaya anesthetic complications: None Was Beta Santana taken within 24 hours: Yes Was Clonidine taken within 24 hours: N/A Social Tobacco and No alcohol Exam alert, oriented x 3 and regular rate & rhythm Airway Submandibular: within normal limits Cervical ROM: within normal limits Mallampati: Class II Dentition: false Pulmonary Chronic Obstructive Pulmonary Disease CV/HEM Coronary Artery Disease and Congestive Heart Failure GI Gastroesophageal Reflux Disease Metabolic Diabetes Mellitus and Morbid Obesity Anesthetic Plan ASA status: 3 Anesthesia: MAC Medications/Allergies Home Medications Medication Instructions Recorded Confirmed Last Taken Type fluoxetine 40 mg capsule 40 mg PO DAILY 10/26/19 08/28/21 Unknown History Saccharomyces boulardii 250 mg 250 mg PO BID 08/28/21 08/28/21 Unknown History capsule (Florastor) aspirin 81 mg tablet,delayed 81 mg PO DAILY 08/28/21 08/28/21 Unknown History release benzonatate 100 mg capsule 100 mg PO TID PRN 08/28/21 08/28/21 Unknown History carvedilol 6.25 mg tablet 6.25 mg PO BID 08/28/21 08/28/21 Unknown History cetirizine 10 mg capsule 10 mg PO DAILY 08/28/21 08/28/21 Unknown History cyclobenzaprine 10 mg tablet 10 mg PO TID PRN 08/28/21 08/28/21 Unknown History docusate sodium 100 mg capsule 100 mg PO BID PRN 08/28/21 08/28/21 Unknown History famotidine 20 mg tablet 20 mg PO BID 08/28/21 08/28/21 Unknown History fluticasone propionate 50 2 spray INTRANASAL DAILY 08/28/21 08/28/21 Unknown History mcg/actuation nasal spray,suspension furosemide 40 mg tablet 40 mg PO DAILY 08/28/21 08/28/21 Unknown History gabapentin 100 mg capsule 100 mg PO DAILY 08/28/21 08/28/21 Unknown History glucagon 1 mg/0.2 mL subcutaneous See Rx Instructions .ROUTE .COMPLEX 08/28/21 08/28/21 Unknown History auto-injector hydralazine 25 mg tablet 25 mg PO TID 08/28/21 08/28/21 Unknown History hydroxyzine HCl 50 mg tablet 50 mg PO Q6H PRN 08/28/21 08/28/21 Unknown History insulin glargine 100 unit/mL 15 unit SUBCUT BID 08/28/21 08/28/21 Unknown History subcutaneous solution (Lantus U-100 Insulin) insulin lispro 100 unit/mL See Rx Instructions .ROUTE .COMPLEX 08/28/21 08/28/21 Unknown History subcutaneous solution (Humalog U-100 Insulin) lidocaine 5 % topical patch 2 patch TOPICAL DAILY 08/28/21 08/28/21 Unknown History melatonin 5 mg tablet 5 mg PO BEDTIME 08/28/21 08/28/21 Unknown History multivitamin,tx-minerals 1 tab PO DAILY 08/28/21 08/28/21 Unknown History naloxone 0.4 mg/mL injection 0.1 mg IM Q2M PRN 08/28/21 08/28/21 Unknown History syringe nitroglycerin 0.4 mg sublingual 0.4 mg SUBLINGUAL Q5M PRN 08/28/21 08/28/21 Unknown History tablet (Nitrostat) oxycodone-acetaminophen 5 mg-325 2 tab PO Q6H PRN 08/28/21 08/28/21 Unknown History mg tablet (Percocet) potassium chloride 20 mEq 20 meq PO DAILY 08/28/21 08/28/21 Unknown History tablet,extended release promethazine 25 mg tablet 25 mg PO TID PRN 08/28/21 08/28/21 Unknown History quetiapine 50 mg tablet 50 mg PO BID 08/28/21 08/28/21 Unknown History vancomycin 125 mg capsule 125 mg PO BID 08/28/21 08/28/21 Unknown History vitamin E 400 unit capsule 400 unit PO DAILY 08/28/21 08/28/21 Unknown History Allergies Allergy/AdvReac Type Severity Reaction Status Date / Time Penicillins AdvReac ADR-Itching Verified 08/28/21 17:14 Current Medications Generic Name Dose Route Start Last Admin Trade Name Freq PRN Reason Stop Dose Admin Acetaminophen 650 mg 08/28/21 01:48 08/31/21 02:57 Acetaminophen 325 Mg Tablet PO 650 mg Q6H PRN Administration Mild/Mod Pain Or Temp >/= 101 Aspirin 81 mg 08/29/21 09:00 08/30/21 09:18 Aspirin 81 Mg Ec Tablet PO 81 mg DAILY PRATIMA Administration Benzonatate 100 mg 08/29/21 22:02 08/30/21 22:02 Benzonatate 100 Mg Capsule PO 100 mg TID PRN Administration COUGH Carvedilol 6.25 mg 08/28/21 09:00 08/30/21 18:07 Carvedilol 6.25 Mg Tablet PO 6.25 mg BID PRATIMA Administration Clopidogrel Bisulfate 75 mg 08/29/21 09:00 08/30/21 09:19 Clopidogrel 75 Mg Tablet PO 75 mg DAILY PRATIMA Administration Enoxaparin Sodium 40 mg 08/28/21 21:15 08/30/21 22:03 Enoxaparin 40 Mg/0.4 Ml Syringe SUBCUT 40 mg Q24H PRATIMA Administration Famotidine 20 mg 08/28/21 09:00 08/30/21 18:07 Famotidine 20 Mg Tablet PO 20 mg BID PRATIMA Administration Fluoxetine HCl 40 mg 08/28/21 09:00 08/30/21 09:18 Fluoxetine 20 Mg Capsule PO 40 mg DAILY PRATIMA Administration Fluticasone Propionate 2 spray 08/28/21 09:00 08/30/21 09:19 Fluticasone Nasal Broad Top 16gm Btl NASAL 2 spray DAILY PRATIMA Administration Furosemide 40 mg 08/28/21 08:00 08/30/21 09:18 Furosemide 40 Mg Tablet PO 40 mg DAILY@0800 PRATIMA Administration Gabapentin 100 mg 08/28/21 09:00 08/30/21 22:02 Gabapentin 100 Mg Capsule PO 100 mg TID PRATIMA Administration Hydralazine HCl 25 mg 08/28/21 09:00 08/30/21 22:02 Hydralazine 25 Mg Tablet PO 25 mg TID PRATIMA Administration Cefazolin Sodium 2,000 mg/ 50 mls @ 100 mls/hr 08/29/21 13:00 08/31/21 04:49 Sodium Chloride IV 100 mls/hr Q8H PRATIMA Administration Insulin Human Lispro 0 unit 08/28/21 08:00 08/31/21 08:16 Insulin Lispro 100 Unit/1 Ml SUBCUT Not Given WM&BEDTIME [facility] Protocol Lactobacillus Acidophilus 1 tab 08/28/21 09:00 08/30/21 18:13 Lactobacillus 1 Tablet PO 1 tab BID PRATIMA Administration Lidocaine 1 patch 08/28/21 09:00 08/30/21 22:03 Lidocaine 5% Patch TOPICAL Not Given [id number] PRATIMA Lorazepam 0.25 mg 08/28/21 09:52 08/31/21 02:57 Lorazepam 2 Mg/Ml Inj 1 Ml IVP 0.25 mg Q4H PRN Administration ANXIETY Ondansetron HCl 4 mg 08/28/21 01:48 08/30/21 10:57 Ondansetron 2 Mg/Ml Sdv 2 Ml IVP 4 mg Q8H PRN Administration vomiting, or N/V if npo Vancomycin HCl 125 mg 08/28/21 09:00 08/30/21 18:13 Vancomycin 1,000 Mg Oral Radha (Btl) PO 125 mg BID PRATIMA Administration PFSH Anesthesia Medical History Anemia Cardiac arrest Chewing tobacco nicotine dependence Chronic back pain Coronary artery disease Diabetes RAMAN (generalized anxiety disorder) GERD (gastroesophageal reflux disease) HFrEF (heart failure with reduced ejection fraction) Hyperlipidemia Hypertension Ischemic cardiomyopathy MSSA bacteremia Rib fractures Septic arthritis Sternal fracture Surgical History History of total knee arthroplasty Stented coronary artery Family History Other CAD (coronary artery disease) Myocardial infarction Social History Smoking and tobacco status: never smoked Quit status (tobacco): has quit using tobacco Alcohol intake: current Alcohol intake frequency: holidays/special occasions only Alcohol type: beer, wine and hard liquor Data Anesthesia : 08/31/21 03:25 08/31/21 03:25 Short CBC 08/30/21 08/31/21 Range/Units 03:47 03:25 WBC 5.8 6.0 (4.0-10.0) 10^3/uL Hgb 8.6 L 9.1 L (11.7-16.6) g/dL Hct 25.3 L 29.2 L (42.0-52.0) % MCV 88.5 94.2 H D (80-94) fl Plt Count 276 275 (130-400) 10^3/cmm Neut % (Auto) 50.8 50.9 % Neut # (Auto) 2.92 3.06 (1.8-7.7) 10^3/uL BMP 08/30/21 08/31/21 03:47 03:25 Sodium 134 L 135 L Potassium 3.5 3.6 Chloride 96 L 96 L Carbon Dioxide 27 29 BUN 13 12 Creatinine 0.9 0.9 Glucose 112 103 Calcium 8.6 9.0 Liver Function 08/30/21 08/31/21 Range/Units 03:47 03:25 Total Bilirubin 0.9 0.9 (0.15-1.2) mg/dL AST 18 20 (0-40) U/L ALT < 5 < 5 (0-41) U/L Alkaline Phosphatase 118 127 (40-130) IU/L Albumin 3.1 L 3.5 (3.5-5.2) g/dL Cardiac Studies: Echocardiogram 05/07/20 Echocardiogram Limited Views 08/28/21 Sestamibi Stress Test (Cardiology) 08/28/21
--- NOTE | 2021-08-31 10:20 | P.PN_ITS ---
Subjective Subjective: Patient had coronary angiogram today that showed severe instent restenosis of the RCA. He underwent successful revascularization with balloon angioplasty. 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 OM 1 has moderate to severe disease Vitals/I&O/Wt Last Vital Signs Temp 98.1 F 08/31/21 07:57 Pulse 77 08/31/21 07:57 Resp 19 H 08/31/21 07:57 BP 141/87 08/31/21 07:57 Pulse Ox 97 08/31/21 07:57 08/30/21 08/31/21 08/31/21 22:59 06:59 14:59 Intake Total 100 / 860 Output Total 1400 / 2550 1000 / 3550 Balance -1300 / -1690 -1000 / -2690 Weight last 48 hrs Weight 256 lb 6.4 oz Weight 273 lb Physical Exam Const: OTHER: GENERAL: Patient is alert, awake and oriented x3. [] NECK: No jugular vein distension. [] HEENT: No cyanosis. No icterus. No pallor. [] HEART: Regular S1 and S2. No murmur, rub or gallop. [] LUNGS: Clear to auscultate bilaterally. [] ABDOMEN: Soft, nontender and nondistended. Positive bowel sounds. No guarding, rebound or tenderness. [] CENTRAL NERVOUS SYSTEM: Grossly nonfocal. [] EXTREMITIES: Lower extremities with 1+ edema bilaterally. Pulses palpable in the lower extremities, both dorsalis pedis and posterior tibial. [] Data : 08/31/21 03:25 08/31/21 03:25 A&P Assessment and plan (1) Abnormal nuclear cardiac imaging test: Patient had coronary angiogram performed today that showed severe in-stent restenosis of large sized RCA and underwent successful revascularization with balloon angioplasty. Mid LAD has MAT MACHINE OPERATOR and OM1 has moderate to severe disease treated medically. Continue current medications including aspirin and Plavix. Status: Acute (2) Cardiac arrest due to underlying cardiac condition: Coronary angiogram performed today. Cardiac arrest was during previous hospitalization however cardiac work-up was not done at that time Status: Acute (3) Ischemic cardiomyopathy: Patient used to have an LV ejection fraction of around 35% by echocardiogram before. Based on the report from the [facility] in [place], his ejection fraction dropped down to 15%. Current hospitalization echocardiogram reveals EF of 30 to 35%. 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
[2021-08-31] MEDS: FUROsemide 40 mg Tablet PO (10:50)
[2021-08-31] MEDS: fluoxetine 20 mg Capsule 40 MG PO (10:50)
[2021-08-31] MEDS: clopidogrel 75 mg Tablet PO (10:50)
[2021-08-31] MEDS: lactobacillus 1 Tablet 1 TAB PO ×2 (10:50→17:41)
[2021-08-31] MEDS: aspirin 81 mg EC Tablet PO (10:51)
[2021-08-31] MEDS: famotidine 20 mg Tablet PO ×2 (10:51→17:41)
[2021-08-31] MEDS: gabapentin 100 mg Capsule PO ×3 (10:51→21:17)
[2021-08-31] MEDS: hyDRALAzine 25 mg Tablet PO ×3 (10:51→21:18)
[2021-08-31] MEDS: carvedilol 6.25 mg Tablet PO ×2 (10:51→17:41)
[2021-08-31] MEDS: fluticasone nasal spray 16gm Btl 2 SPRAY NASAL (10:52)
[2021-08-31] MEDS: lidocaine 5% Patch 1 PATCH TOPICAL (11:02)
[2021-08-31] MEDS: sodium chloride 0.9% 1,000 ML 50 ML IV (11:03)
[2021-08-31] MEDS: benzonatate 100 mg Capsule PO ×2 (11:25→17:41)
[2021-08-31 11:43] LABS: Glucose Point of Care 108 mg/dL (70-110)
--- NOTE | 2021-08-31 12:01 | ANE.PACU2 ---
Inpatient post-anesthesia follow up: Airway intact: Yes Vital signs: Temperature 98.1 F Pulse Rate 77 Respiratory Rate 19 Blood Pressure 141/87 Pulse Oximetry 97 Oxygen Delivery Me thod Nasal Cannula Oxygen Flow Rate 3 Fraction of Inspir ed Oxygen Hydration adequate: Yes Nausea and vomiting: No Pain level: 2 Mental status: Baseline
[2021-08-31 12:23] LABS: Glucose Point of Care 159 mg/dL (70-110)
--- NOTE | 2021-08-31 13:25 | ECG_ITS ---
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 Measurements Intervals [place] Rate: 90 P: 26 RI: 176 QRS: -45 QRSD: 119 T: 77 QT: 359 QTc: 439 Interpretive Statements SINUS RHYTHM LEFT VENTRICULAR HYPERTROPHY AND ST-T CHANGE [VOLTAGE CRITERIA PLUS ST/T ABNORMALITY] INFERIOR MYOCARDIAL INFARCTION , PROBABLY OLD [40+ ms Q WAVE AND/OR ST/T ABNORMALITY IN II/aVF] ANTEROLATERAL MYOCARDIAL INFARCTION , OF INDETERMINATE AGE [40+ ms Q WAVE IN I/aVL/V3-V6] Compared to ECG 05/23/2018 17:37:15 Left ventricular hypertrophy now present ST (T wave) deviation now present Sinus bradycardia no longer present Myocardial infarct finding still present Electronically Signed On 09-01-2021 23:38:43 CDT by Dirk Emanuel M.D. [id number]
--- NOTE | 2021-08-31 13:43 | CTR_ITS ---
PROCEDURE INFORMATION: Exam: CT Head Without Contrast Exam date and time: 08/31/2021 2:07 PM Age: 65 years old Clinical indication: Other: Blurred vision TECHNIQUE: Imaging protocol: Computed tomography of the head without contrast. Radiation optimization: All CT scans at this facility use at least one of these dose optimization techniques: automated exposure control; mA and/or kV adjustment per patient size (includes targeted exams where dose is matched to clinical indication); or iterative reconstruction. COMPARISON: No relevant prior studies available. RADIATION DOSE METRICS: Total DLP (mGy-cm): 846.65 FINDINGS: Brain: There is no acute intracranial hemorrhage, cerebral edema, or midline shift. Chronic microvascular ischemic changes are seen in the periventricular white matter. Age-related cerebral and cerebellar volume loss is present. Cerebral ventricles: Mild ex vacuo dilation of the lateral ventricles is noted. Paranasal sinuses: There is no acute sinusitis. Mastoid air cells: The mastoid air cells are clear. Orbital cavities: The included orbital structures are unremarkable. Bones/joints: No acute fracture. Soft tissues: Unremarkable. CT/CT head wo con* [id number] IMPRESSION: 1. No acute intracranial abnormality. 2. Atrophy and chronic deep white matter ischemic changes.
[2021-08-31] MEDS: magnesium sulfate premix 4 GM/100 ML PREMIX IV (14:27)
[2021-08-31] MEDS: potassium chloride premix 100 ML 25 MEQ IV (14:29)
--- NOTE | 2021-08-31 15:13 | PC.NURSE ---
pt started to c/o blurred vision around 1315. dr gudino notified. ekg done, no new changes. vss, pt slightly hypertensive systolic in the 150's. pt then taken for stat head ct. pt anxious, states that vision is still blurred. Dr Gudino at bedside, called stroke alert. Dr. Dennis at bedside at 1515.
--- NOTE | 2021-08-31 15:37 | CTR_ITS ---
PROCEDURE INFORMATION: Exam: CTA Head With Contrast, Arteriography Exam date and time: 08/31/2021 3:59 PM Age: 65 years old Clinical indication: Visual disturbance; Diplopia; Additional info: Rule out stroke, visual field deficit, confusion, diplopia last night. TECHNIQUE: Imaging protocol: Computed tomographic angiography of the head with contrast. Exam focused on the arteries. 3D rendering (Not supervised by radiologist): MIP and/or 3D reconstructed images were created by the technologist. Radiation optimization: All CT scans at this facility use at least one of these dose optimization techniques: automated exposure control; mA and/or kV adjustment per patient size (includes targeted exams where dose is matched to clinical indication); or iterative reconstruction. Contrast material: OMNI 350; Contrast volume: 95 ml; Contrast route: INTRAVENOUS (IV); COMPARISON: CT head wo con* [id number] 08/31/2021 2:07 PM RADIATION DOSE METRICS: Total DLP (mGy-cm): 574.37 FINDINGS: ANTERIOR CIRCULATION: Right internal carotid artery: There is atherosclerotic plaque in the carotid siphons with luminal irregularity however no significant focal stenosis. Intracranial segment is patent with no significant stenosis. No aneurysm. Right middle cerebral artery: Unremarkable. No occlusion or significant stenosis. No aneurysm. Right anterior cerebral artery: Unremarkable. No occlusion or significant stenosis. No aneurysm. Left internal carotid artery: There is atherosclerotic plaque in the carotid siphons with luminal irregularity however no significant focal stenosis. Intracranial segment is patent with no significant stenosis. No aneurysm. Left middle cerebral artery: Unremarkable. No occlusion or significant stenosis. No aneurysm. Left anterior cerebral artery: Unremarkable. No occlusion or significant stenosis. No aneurysm. POSTERIOR CIRCULATION: Right vertebral artery: Unremarkable. No occlusion or significant stenosis. No aneurysm. Left vertebral artery: Unremarkable. No occlusion or significant stenosis. No aneurysm. Basilar artery: Unremarkable. No occlusion or significant stenosis. No aneurysm. Right posterior cerebral artery: Normal variant origin. No occlusion or significant stenosis. No aneurysm. Left posterior cerebral artery: Unremarkable. No occlusion or significant stenosis. No aneurysm. Brain: No definite mass, mass effect, or midline shift. Cerebral ventricles: No ventriculomegaly. Bones/joints: Unremarkable. No acute fracture. Soft tissues: Unremarkable. PROCEDURE INFORMATION: Exam: CTA Neck With Contrast Exam date and time: 08/31/2021 3:59 PM Age: 65 years old Clinical indication: Visual disturbance; Diplopia; Additional info: Rule out stroke, visual field deficit, confusion, diplopia last night. TECHNIQUE: Imaging protocol: Computed tomographic angiography of the neck with contrast. 3D rendering (Not supervised by radiologist): MIP and/or 3D reconstructed images were created by the technologist. Radiation optimization: All CT scans at this facility use at least one of these dose optimization techniques: automated exposure control; mA and/or kV adjustment per patient size (includes targeted exams where dose is matched to clinical indication); or iterative reconstruction. Contrast material: OMNI 350; Contrast volume: 95 ml; Contrast route: INTRAVENOUS (IV); COMPARISON: CT head wo con* [id number] 08/31/2021 2:07 PM RADIATION DOSE METRICS: Total DLP (mGy-cm): 574.37 FINDINGS: Right common carotid artery: No stenosis. No dissection or occlusion. Right internal carotid artery: There is atherosclerotic plaque in the proximal right internal carotid artery with mild stenosis. Right external carotid artery: No occlusion or stenosis of the origin. Left common carotid artery: No stenosis. No dissection or occlusion. Left internal carotid artery: There is atherosclerotic plaque in the proximal left internal carotid artery with mild stenosis. Left external carotid artery: No occlusion or stenosis of the origin. Right vertebral artery: No stenosis. No dissection or occlusion. Left vertebral artery: No stenosis. No dissection or occlusion. Soft tissues: Normal. No significant soft tissue swelling. Bones/joints: No acute fracture. Pleural spaces: Partially visualized left pleural effusion with adjacent compressive atelectasis. CT/CT angio headneck* [id number] IMPRESSION: No large vessel stenosis or occlusion. No large aneurysm. There is atherosclerotic plaque in the carotid siphons with luminal irregularity however no significant focal stenosis. IMPRESSION: Atherosclerotic plaque in the proximal bilateral internal carotid arteries with mild stenosis. REFERENCES: NASCET CRITERIA. The degree of internal carotid artery stenosis is based on NASCET criteria. Normal is no stenosis. Mild is less than 50% stenosis. Moderate is 50-69% stenosis. Severe is 70% to 99% stenosis. Total occlusion is no detectable patent lumen.
[2021-08-31] MEDS: iohexol 350 mg/mL 100 mL Btl IV (16:09)
[2021-08-31 17:04] LABS: Glucose Point of Care 152 mg/dL (70-110)
[2021-08-31] MEDS: insulin lispro 100 unit/1 mL SUBCUT (17:41)
--- NOTE | 2021-08-31 19:35 | P.PNCC_ITS ---
Stroke Alert Activation ED Arrival Date: 08/31/21 Other Last Known Well Infomation: Dr. Terese Reynoso activated the stroke team for this 65-year-old man who was complaining of blurred vision and numbness. He was taken to the heart catheterization laboratory this morning for chest pain and had balloon angioplasty of in-stent restenosis. Dr. Terese Reynoso examined him at 843 after the procedure and he was sedated but otherwise well. I talked with the patient's , who spent the night with him last night and was with him before and after the procedure this morning and she thought he was well. She was with him last night and he did not mention anything about having double vision last night to her, though he mentioned it to Dr. Terese Reynoso this morning. He believes that when he went to sleep last night he was still having some double vision. When Dr. Terese Reynoso went in to check on him this afternoon he was complaining of blurred vision. She did a neurologic exam and demonstrated right homonymous hemianopsia. She took him to CAT scan and that study was unremarkable. She reexamined him after the CAT scan and activated stroke team. I came immediately to the bedside and examined the patient. He had possible finding of peripheral visual field cut on the right, homonymous. He had no other physical findings. His NIH stroke scale score was 1 or 2 at most and I thought he had some inconsistent findings suggesting an emotional component. I later talked with his who told me that he has been very stressed over everything happening to him since he had a cardiac arrest a couple of months ago. I asked Dr. Terese Reynoso to go ahead with CT angiogram in case he had a posterior circulation thrombus. That study was negative. Stroke Alert Activated by: Dr. Terese Reynoso Stroke Alert Activation Time: 15:08 Stroke MD @ Bedside Time: 15:15 NIH stroke score NIHSS: Level Of Consciousness - 1a: 0 Level Of Consciousness Questions - 1b: Both Correct Level Of Consciousness Commands - 1c: Both Correct Best Gaze - 2: Normal Visual Ho - 3: Partial Hemianopia Facial Palsy - 4: Normal Motor Arm Right - 5: No Drift Motor Arm Left - 5: No Drift Motor Leg Right - 6: No Drift Motor Leg Left - 6: No Drift Limb Ataxia - 7: Absent Sensory - 8: Normal Best Language - 9: No Aphasia Dysarthia - 10: Normal Extinction And Inattention - 11: 0 Score: Total Score: 1 Stroke Alert Data/Treatment CT Impression: His CT scan of the head is unremarkable except for some chronic white matter changes. Stroke Risk Factors: coronary artery disease, hypertension, previous [place] and diabetes mellitus tPA Contraindication: tPA Contraindication: Treatment not indcated Patient & Family Educated on: Allan Montanez Other Patient & Family Education: Talked with his at length and took time to answer questions. Critical Care Time Critical Care Time: 30 - 74 mins A&P Assessment and plan (1) TIA (transient ischemic attack): TIA involving the left posterior cerebral artery manifested by partial hemianopia on the right that waxed and waned. The only way I could demonstrate that was with finger counting and he ignored the finger on the right. With the red stimulus he did not have visual field cut. I could not reproduce a sensory deficit and his neurologic exam was normal within the limits of testing as I did not take him for a walk. Because he is a vasculopath and just had a procedure I thought we should proceed to CT angiogram and that demonstrated no sign of a clot in the posterior circulation. Thoroughly discussed with Dr. Terese Reynoso. 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
[2021-08-31 20:32] LABS: Glucose Point of Care 117 mg/dL (70-110)
[2021-08-31] MEDS: enoxaparin 40 mg/0.4 mL Syringe SUBCUT (21:18)
[2021-09-01] VITALS (13 sets, daily range): BP systolic 125–153; BP diastolic 64–103; PULSE 74–87; RESP 13–35; TEMP 36.4–37.4; O2SAT 83–96
[2021-09-01 04:01] LABS: Basophils % 0.2 %; Eosinophils # 0.2 10^3/uL (0.0-0.8); Eosinophils % 2.8 %; Hematocrit 30.7 % (42.0-52.0); Hemoglobin 9.3 g/dL (11.7-16.6); Lymphocytes # 2.7 10^3/uL (0.8-4.8); Lymphocytes % 43.4 %; Mean Corpuscular HGB Conc 30.3 g/dL (30.0-36.0); Mean Corpuscular Hemoglobin 29.3 pg (28.0-34.0); Mean Corpuscular Volume 96.8 fl (80-94); Monocytes # 0.6 10^3/uL (0.2-0.9); Monocytes % 9.2 %; Neutrophils # 2.73 10^3/uL (1.8-7.7); Neutrophils % 44.1 %; Nucleated Red Blood Cells % 0 %; Platelet Count 288 10^3/cmm (130-400); Red Blood Count 3.17 10^6/uL (4.1-5.3); Red Cell Distribution Width 13.5 % (12.1-15.1); White Blood Count 6.2 10^3/uL (4.0-10.0)
[2021-09-01] MEDS: ceFAZolin 2,000 MG in sodium chloride 0.9% (plus) 50 ML 100 MG IV ×3 (04:10→21:17)
[2021-09-01] MEDS: acetaminophen 325 mg Tablet 650 MG PO ×2 (04:15→23:01)
[2021-09-01 04:19] LABS: Anion Gap 11.9 (5-19); Blood Urea Nitrogen 11 mg/dL (8-23); Carbon Dioxide 29 mmol/L (22-29); Chloride 96 mmol/L (98-107); Glucose 105 mg/dL (65-115); Magnesium 2.1 mg/dL (1.7-2.3); Osmolality Calculated 276 mOsm/kg (285-295); Potassium 3.9 mmol/L (3.5-5.1); Sodium 133 mmol/L (136-145)
[2021-09-01 07:51] LABS: Glucose Point of Care 122 mg/dL (70-110)
--- NOTE | 2021-09-01 08:37 | PM.PN ---
Subjective Subjective: Yesterday code stroke was called after patient complained of blurred vision and did have a homonymous hemianopsia.? CTA head and neck was done which was unremarkable.? Dr. Dennis saw patient and discussed with as well.? His symptoms are very inconsistent.? However today he feels better and blurred vision has resolved.? Patient states he feels okay this morning he does not have any complaints. This morning he feels better. Vitals/I&O/Wt Last Vital Signs Temp 97.5 F L 09/01/21 08:00 Pulse 74 09/01/21 08:00 Resp 13 09/01/21 08:00 BP 137/82 09/01/21 08:00 Pulse Ox 95 09/01/21 08:00 08/31/21 09/01/21 09/01/21 22:59 06:59 14:59 Intake Total 1210 / 1310 1499.167 / 2809.167 Output Total 1100 / 1100 1350 / 2450 Balance 110 / 210 149.167 / 359.167 Weight last 48 hrs Weight 119.249 kg Weight 116.301 kg Physical Exam Narrative: General: Alert oriented x3, patient seen this morning.? Laying in bed comfortably at this time. HEENT: Normocephalic, atraumatic, EOMI, breathing normally on room air Cardio: Regular rate rhythm, normal S1-S2, chest pain reproducible to palpation Respiratory: Good bilateral air entry, no wheezes no rhonchi appreciated GI: Abdomen soft, nontender, nondistended, bowel sounds + Extremities: Trace lower extremity edema, no cyanosis, left knee wrapped with gauze dressing Data : 09/01/21 02:58 09/01/21 02:58 A&P Assessment and plan (1) TIA (transient ischemic attack): Status: Acute (2) Septic arthritis due to Streptococcus species: Status: Acute (3) Atherosclerotic heart disease of [place] coronary artery with other forms of angina pectoris: Status: Acute (4) Ischemic cardiomyopathy: Status: Acute (5) Abnormal nuclear cardiac imaging test: Status: Acute (6) MSSA bacteremia: Status: Acute (7) Septic arthritis: Status: Acute (8) Cardiomyopathy: Status: Acute Qualifiers: Cardiomyopathy type: unspecified Qualified Code(s): I42.9 - Cardiomyopathy, unspecified (9) Chest pain: Status: Acute Qualifiers: Chest pain type: unspecified Qualified Code(s): R07.9 - Chest pain, unspecified (10) Hyperlipidemia: Status: Acute (11) Hypertension: Status: Acute Qualifiers: Hypertension type: primary hypertension Qualified Code(s): I10 - Essential (primary) hypertension (12) Coronary artery disease: Status: Acute Qualifiers: Coronary Disease-Associated Artery/Lesion type: [place] artery [place] vs. transplanted heart: [place] heart Associated angina: with unspecified angina Qualified Code(s): I25.119 - Atherosclerotic heart disease of [place] coronary artery with unspecified angina pectoris (13) Diabetes: Status: Acute Qualifiers: Diabetes mellitus type: type 2 Diabetes mellitus [facility] insulin use: without rodent exterminator use Diabetes mellitus complication status: without complication Qualified Code(s): E11.9 - Type 2 diabetes mellitus without complications (14) GERD (gastroesophageal reflux disease): Status: Acute Qualifiers: Esophagitis presence: esophagitis presence not specified Qualified Code(s): K21.9 - Gastro-esophageal reflux disease without esophagitis Plan #Chest pain secondary to RCA in-stent restenosis status post balloon angioplasty 08/31 #History of coronary artery disease with AI to RCA #History of PEA cardiac arrest at [facility] #Rib fractures secondary to ACLS #Sternal fracture secondary to ACLS #Hypertension #Hyperlipidemia. 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 Ken as an outpatient.? Patient was at [facility] where he was assessed and managed for left knee septic arthritis, MSSA bacteremia with hospitalization complicated by PEA cardiac arrest requiring ACLS achievement of ROSC in about 5 minutes subsequently with hypotension requiring vasopressors.? Patient had ANTHONY which showed EF 15 to 20% range. -Records did not show patient having any angiogram.? However patient's told cardiology that patient had all kind of cardiac work-up at [facility].? We have requested for new records.? Limited echo done yesterday showed EF 3035% with global hypokinesis.? Does show hypokinetic right ventricle as well. -Cardiology on board.? Continue aspirin, Plavix.? Stop subcu Lovenox.? Continue Coreg.? Lasix 40 daily -Further management after records reviewed. No evidence of cath at previous hospital -Patient is status post balloon angioplasty.? He will require LifeVest at discharge.? Continue to monitor patient in the hospital. #Left knee septic arthritis, MSSA bacteremia #Diabetes mellitus, insulin-dependent #GERD #Questionable fluid around spleen, assessed by general surgery recommended conservative management at [facility]. #TIA -History of TKA 2014.? Underwent left knee hardware removal and cement spacer placement of left knee.? PICC line placed before discharge.? ID recommended to continue cefazolin every 8 hours until 09/23.? PICC line to stay in until follow-up with ID. ? Patient placed on oral vancomycin as prophylaxis against C. difficile per documentation. ? Patient does have appointments for follow-up with ID in September.? He also has follow-up with cardiology and orthopedics as an outpatient.? I will review his records to ensure all appointments are scheduled and I will document them. -Continue cefazolin ? Continue dressing changes. - Continue on aspirin and plavix statin to cover for TIA Limited resuscitation.? Okay to do CPR but DO NOT INTUBATE.? Patient stated to do 2 cycles of CPR and if not resuscitated then stop. DVT prophylaxis: Lovenox 40 daily Attestations Medical Necessity Statement*: He will also require LifeVest prior to discharge.? [facility] once medically discharged. Case management to work on rehab placement. 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[facility] Diagnoses TIA (transient ischemic attack) G45.9 Septic arthritis due to Streptococcus species M00.20 Atherosclerotic heart disease of [place] coronary artery with other forms of angina pectoris I25.118 Ischemic cardiomyopathy I25.5 Abnormal nuclear cardiac imaging test R93.1 MSSA bacteremia R78.81; B95.61 Septic arthritis M00.9 Cardiomyopathy I42.9 Cardiomyopathy type: unspecified Chest pain R07.9 Chest pain type: unspecified Hyperlipidemia E78.5 Hypertension I10 Hypertension type: primary hypertension Coronary artery disease I25.119 Coronary Disease-Associated Artery/Lesion type: [place] artery [place] vs. transplanted heart: [place] heart Associated angina: with unspecified angina Diabetes E11.9 Diabetes mellitus type: type 2 Diabetes mellitus [facility] insulin use: without [facility] use Diabetes mellitus complication status: without complication GERD (gastroesophageal reflux disease) K21.9 Esophagitis presence: esophagitis presence not specified
[2021-09-01] MEDS: FUROsemide 40 mg Tablet PO (09:56)
[2021-09-01] MEDS: clopidogrel 75 mg Tablet PO (09:56)
[2021-09-01] MEDS: fluoxetine 20 mg Capsule 40 MG PO (09:56)
[2021-09-01] MEDS: hyDRALAzine 25 mg Tablet PO ×3 (09:56→21:17)
[2021-09-01] MEDS: lactobacillus 1 Tablet 1 TAB PO ×2 (09:56→17:32)
[2021-09-01] MEDS: famotidine 20 mg Tablet PO ×2 (09:56→17:32)
[2021-09-01] MEDS: gabapentin 100 mg Capsule PO ×3 (09:56→21:17)
[2021-09-01] MEDS: carvedilol 6.25 mg Tablet PO ×2 (09:56→17:32)
[2021-09-01] MEDS: aspirin 81 mg EC Tablet PO (09:56)
[2021-09-01] MEDS: lidocaine 5% Patch 1 PATCH TOPICAL ×2 (10:07→21:18)
[2021-09-01] MEDS: fluticasone nasal spray 16gm Btl 2 SPRAY NASAL (10:11)
[2021-09-01] MEDS: ondansetron 2 mg/ML SDV 2 mL 4 MG IVP ×2 (10:46→14:57)
[2021-09-01 11:22] LABS: Glucose Point of Care 179 mg/dL (70-110)
--- NOTE | 2021-09-01 11:26 | PC.SOCIAL ---
IMM update IMM updated with patient. Copy Pg 2 provided. Verbalized an understanding. Initialled, dated, timed, and placed in chart.
[2021-09-01] MEDS: insulin lispro 100 unit/1 mL SUBCUT ×3 (12:47→21:40)
--- NOTE | 2021-09-01 14:00 | P.PN_ITS ---
Subjective Subjective: Patient is overall doing well. Yesterday stroke alert was activated by primary team however testing was negative and no evidence of stroke was found. Vitals/I&O/Wt Last Vital Signs Temp 98.5 F 09/01/21 12:00 Pulse 81 09/01/21 12:00 Resp 16 09/01/21 12:00 BP 146/81 09/01/21 12:00 Pulse Ox 96 09/01/21 12:00 08/31/21 09/01/21 09/01/21 22:59 06:59 14:59 Intake Total 1210 / 1310 1499.167 / 2809.167 1010 / 1010 Output Total 1100 / 1100 1350 / 2450 400 / 400 Balance 110 / 210 149.167 / 359.167 610 / 610 Weight last 48 hrs Weight 262 lb 14.4 oz Weight 256 lb 6.4 oz Physical Exam Const: OTHER: GENERAL: Patient is alert, awake and oriented x3. [] NECK: No jugular vein distension. [] HEENT: No cyanosis. No icterus. No pallor. [] HEART: Regular S1 and S2. No murmur, rub or gallop. [] LUNGS: Clear to auscultate bilaterally. [] ABDOMEN: Soft, nontender and nondistended. Positive bowel sounds. No guarding, rebound or tenderness. [] CENTRAL NERVOUS SYSTEM: Grossly nonfocal. [] EXTREMITIES: Lower extremities with 1+ edema bilaterally. Pulses palpable in the lower extremities, both dorsalis pedis and posterior tibial. [] Data : 09/01/21 02:58 09/01/21 02:58 A&P Assessment and plan (1) Abnormal nuclear cardiac imaging test: Patient had coronary angiogram performed on 08/31 that showed severe in-stent restenosis of large sized RCA and underwent successful revascularization with balloon angioplasty. 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 Continue current medications including aspirin and Plavix. Status: Acute (2) Cardiac arrest due to underlying cardiac condition: Coronary angiogram performed on 08/31. Cardiac arrest was during previous hospitalization however cardiac work-up was not done at that time Status: Acute (3) Ischemic cardiomyopathy: Patient used to have an LV ejection fraction of around 35% by echocardiogram before. Based on the report from the [facility] in [place], his ejection fraction dropped down to 15%. Current hospitalization echocardiogram reveals EF of 30 to 35%. LifeVest ordered. Status: Acute (4) Atherosclerotic heart disease of [place] coronary artery with other forms of angina pectoris: As mentioned above Status: Acute (5) Septic arthritis due to Streptococcus species: Continue management as per the primary attending. Status: Acute Plan Other problems are Multiple rib fractures Anemia requiring multiple blood transfusion Dyslipidemia Memory loss Attestations Medical Necessity Statement*: Care expected to cross 2 midnights. 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 of Care Code Acute Durability Technician for [facility] Diagnoses Abnormal nuclear cardiac imaging test R93.1 Cardiac arrest due to underlying cardiac condition I46.2 Ischemic cardiomyopathy I25.5 Atherosclerotic heart disease of [place] coronary artery with other forms of angina pectoris I25.118 Septic arthritis due to Streptococcus species M00.20
[2021-09-01] MEDS: ibuprofen 200 mg Tablet 400 MG PO (16:35)
[2021-09-01 17:20] LABS: Glucose Point of Care 179 mg/dL (70-110)
[2021-09-01] MEDS: enoxaparin 40 mg/0.4 mL Syringe SUBCUT (21:18)
[2021-09-01] MEDS: benzonatate 100 mg Capsule PO (21:40)
[2021-09-01] MEDS: trazodone 50 mg Tablet 25 MG PO (23:02)
[2021-09-02] VITALS (9 sets, daily range): BP systolic 131–160; BP diastolic 66–84; PULSE 62–88; RESP 16–20; TEMP 36.3–37.1; O2SAT 94–98
[2021-09-02 00:56] LABS: Glucose Point of Care 161 mg/dL (70-110)
[2021-09-02 04:22] LABS: Anion Gap 15.6 (5-19); Blood Urea Nitrogen 15 mg/dL (8-23); Calcium 8.8 mg/dL (8.5-10.5); Carbon Dioxide 27 mmol/L (22-29); Chloride 97 mmol/L (98-107); Glomerular Filtration Rate 84.7 mL/min (90-130); Glucose 109 mg/dL (65-115); Osmolality Calculated 283 mOsm/kg (285-295); Potassium 3.6 mmol/L (3.5-5.1); Sodium 136 mmol/L (136-145)
[2021-09-02] MEDS: ceFAZolin 2,000 MG in sodium chloride 0.9% (plus) 50 ML 100 MG IV ×3 (05:09→23:12)
[2021-09-02] MEDS: acetaminophen 325 mg Tablet 650 MG PO ×3 (05:52→23:17)
[2021-09-02 06:56] LABS: Glucose Point of Care 136 mg/dL (70-110)
[2021-09-02] MEDS: carvedilol 6.25 mg Tablet PO ×2 (08:32→17:12)
[2021-09-02] MEDS: lactobacillus 1 Tablet 1 TAB PO ×2 (08:32→17:12)
[2021-09-02] MEDS: FUROsemide 40 mg Tablet PO (08:32)
[2021-09-02] MEDS: famotidine 20 mg Tablet PO ×2 (08:32→17:13)
[2021-09-02] MEDS: hyDRALAzine 25 mg Tablet PO ×3 (08:32→20:50)
[2021-09-02] MEDS: fluoxetine 20 mg Capsule 40 MG PO (08:33)
[2021-09-02] MEDS: aspirin 81 mg EC Tablet PO (08:33)
[2021-09-02] MEDS: potassium chloride ER 20 mEq Tablet 40 MEQ PO (08:33)
[2021-09-02] MEDS: clopidogrel 75 mg Tablet PO (08:33)
[2021-09-02] MEDS: gabapentin 100 mg Capsule PO ×3 (08:33→20:50)
[2021-09-02] MEDS: fluticasone nasal spray 16gm Btl 2 SPRAY NASAL (08:34)
[2021-09-02] MEDS: lidocaine 5% Patch 1 PATCH TOPICAL ×3 (08:35→22:00)
[2021-09-02] MEDS: LORazepam 2 mg/mL INJ 1 mL 0.25 MG IVP (09:41)
--- NOTE | 2021-09-02 10:27 | PM.PN ---
Subjective Subjective: Patient is feeling well. Denies any significant chest discomfort. Vitals/I&O/Wt Last Vital Signs Temp 97.7 F 09/02/21 04:00 Pulse 73 09/02/21 08:00 Resp 20 H 09/02/21 08:00 BP 160/78 09/02/21 08:00 Pulse Ox 94 09/02/21 08:00 09/01/21 09/02/21 09/02/21 22:59 06:59 14:59 Intake Total 530 / 1900 720 / 720 Output Total 800 / 1600 Balance 530 / 1100 -800 / 300 720 / 720 Weight last 48 hrs Weight 268 lb 3.2 oz Weight 262 lb 14.4 oz Physical Exam Const: OTHER: GENERAL: Patient is alert, awake and oriented x3. [] NECK: No jugular vein distension. [] HEENT: No cyanosis. No icterus. No pallor. [] HEART: Regular S1 and S2. No murmur, rub or gallop. [] LUNGS: Clear to auscultate bilaterally. [] ABDOMEN: Soft, nontender and nondistended. Positive bowel sounds. No guarding, rebound or tenderness. [] CENTRAL NERVOUS SYSTEM: Grossly nonfocal. [] EXTREMITIES: Lower extremities with 1+ edema bilaterally. Pulses palpable in the lower extremities, both dorsalis pedis and posterior tibial. [] Data : 09/01/21 02:58 09/02/21 02:30 A&P Assessment and plan (1) Abnormal nuclear cardiac imaging test: Patient had coronary angiogram performed on 08/31 that showed severe in-stent restenosis of large sized RCA and underwent successful revascularization with balloon angioplasty. Mid LAD has CLOTH BRUSHING AND SUEDING SUPERVISOR and OM1 has moderate to severe disease treated medically. Continue current medications including aspirin and Plavix. Status: Acute (2) Cardiac arrest due to underlying cardiac condition: Coronary angiogram performed on 08/31. Cardiac arrest was during previous hospitalization however cardiac work-up was not done at that time Status: Acute (3) Ischemic cardiomyopathy: Patient used to have an LV ejection fraction of around 35% by echocardiogram before. Based on the report from the [facility] in [place], his ejection fraction dropped down to 15%. Current hospitalization echocardiogram reveals EF of 30 to 35%. LifeVest ordered. Once LifeVest is received, patient is stable to be discharged from cardiology standpoint Status: Acute (4) Atherosclerotic heart disease of [place] coronary artery with other forms of angina pectoris: As mentioned above Status: Acute (5) Septic arthritis due to Streptococcus species: Continue management as per the primary attending. Status: Acute Plan Other problems are Multiple rib fractures Anemia requiring multiple blood transfusion Dyslipidemia Memory loss Attestations Medical Necessity Statement*: Care expected to cross 2 midnights 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 of Care Code Acute Wireless Retail Manager for [facility] Diagnoses Abnormal nuclear cardiac imaging test R93.1 Cardiac arrest due to underlying cardiac condition I46.2 Ischemic cardiomyopathy I25.5 Atherosclerotic heart disease of [place] coronary artery with other forms of angina pectoris I25.118 Septic arthritis due to Streptococcus species M00.20
[2021-09-02 12:42] LABS: Glucose Point of Care 149 mg/dL (70-110)
--- NOTE | 2021-09-02 16:45 | PM.PN ---
Subjective Subjective: seen this AM. no acute events overnight will get fitted with lifevest today there was concern this AM that patient's knee dressing was not changed since admission however that is not true. Patient has been getting dressings changed. Infact his dressing change instructions are pasted to the wall in the room. Discussed with nursing staff. He will be getting his dressing changed today as well. Vitals/I&O/Wt Last Vital Signs Temp 98.1 F 09/02/21 12:00 Pulse 85 09/02/21 14:00 Resp 16 09/02/21 12:00 BP 143/80 09/02/21 12:00 Pulse Ox 97 09/02/21 12:00 09/02/21 09/02/21 09/02/21 06:59 14:59 22:59 Intake Total 720 / 720 Output Total 800 / 1600 Balance -800 / 300 720 / 720 Weight last 48 hrs Weight 121.653 kg Weight 119.249 kg Physical Exam Narrative: General: Alert oriented x3, patient seen this morning.? Laying in bed comfortably at this time. HEENT: Normocephalic, atraumatic, EOMI, breathing normally on room air Cardio: Regular rate rhythm, normal S1-S2, chest pain reproducible to palpation Respiratory: Good bilateral air entry, no wheezes no rhonchi appreciated GI: Abdomen soft, nontender, nondistended, bowel sounds + Extremities: Trace lower extremity edema, no cyanosis, left knee wrapped with gauze dressing Data : 09/01/21 02:58 09/02/21 02:30 A&P Assessment and plan (1) TIA (transient ischemic attack): Status: Acute (2) Septic arthritis due to Streptococcus species: Status: Acute (3) Atherosclerotic heart disease of [place] coronary artery with other forms of angina pectoris: Status: Acute (4) Ischemic cardiomyopathy: Status: Acute (5) Cardiac arrest due to underlying cardiac condition: Status: Acute (6) Abnormal nuclear cardiac imaging test: Status: Acute (7) Decubital ulcer: Status: Acute (8) MSSA bacteremia: Status: Acute (9) Septic arthritis: Status: Acute (10) Cardiomyopathy: Status: Acute Qualifiers: Cardiomyopathy type: unspecified Qualified Code(s): I42.9 - Cardiomyopathy, unspecified (11) Chest pain: Status: Acute Qualifiers: Chest pain type: unspecified Qualified Code(s): R07.9 - Chest pain, unspecified (12) Hyperlipidemia: Status: Acute (13) Hypertension: Status: Acute Qualifiers: Hypertension type: primary hypertension Qualified Code(s): I10 - Essential (primary) hypertension (14) Coronary artery disease: Status: Acute Qualifiers: Coronary Disease-Associated Artery/Lesion type: [place] artery [place] vs. transplanted heart: [place] heart Associated angina: with unspecified angina Qualified Code(s): I25.119 - Atherosclerotic heart disease of [place] coronary artery with unspecified angina pectoris (15) Diabetes: Status: Acute Qualifiers: Diabetes mellitus type: type 2 Diabetes mellitus prison insulin use: without terminal makeup operator use Diabetes mellitus complication status: without complication Qualified Code(s): E11.9 - Type 2 diabetes mellitus without complications (16) GERD (gastroesophageal reflux disease): Status: Acute Qualifiers: Esophagitis presence: esophagitis presence not specified Qualified Code(s): K21.9 - Gastro-esophageal reflux disease without esophagitis Plan #Chest pain secondary to RCA in-stent restenosis status post balloon angioplasty 08/31 #History of coronary artery disease with AI to RCA #History of PEA cardiac arrest at [facility] #Rib fractures secondary to ACLS #Sternal fracture secondary to ACLS #Hypertension #Hyperlipidemia. 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 Ken as an outpatient.? Patient was at [facility] where he was assessed and managed for left knee septic arthritis, MSSA bacteremia with hospitalization complicated by PEA cardiac arrest requiring ACLS achievement of ROSC in about 5 minutes subsequently with hypotension requiring vasopressors.? Patient had ANTHONY which showed EF 15 to 20% range. -Records did not show patient having any angiogram.? However patient's told cardiology that patient had all kind of cardiac work-up at [facility].? We have requested for new records.? Limited echo done yesterday showed EF 3035% with global hypokinesis.? Does show hypokinetic right ventricle as well. -Cardiology on board.? Continue aspirin, Plavix.? Stop subcu Lovenox.? Continue Coreg.? Lasix 40 daily -Further management after records reviewed. No evidence of cath at previous hospital -Patient is status post balloon angioplasty.? He will require LifeVest at discharge.? Patient is ready for discharge. Lifevest has been placed already. He could not go today as accepting facility time cut off for taking patient had reached. Will dc patient in AM. #Left knee septic arthritis, MSSA bacteremia #Diabetes mellitus, insulin-dependent #GERD #Questionable fluid around spleen, assessed by general surgery recommended conservative management at [facility]. #TIA -History of TKA 2014.? Underwent left knee hardware removal and cement spacer placement of left knee.? PICC line placed before discharge.? ID recommended to continue cefazolin every 8 hours until 09/23.? PICC line to stay in until follow-up with ID. ? Patient placed on oral vancomycin as prophylaxis against C. difficile per documentation. ? Patient does have appointments for follow-up with ID in September.? He also has follow-up with cardiology and orthopedics as an outpatient.? I will review his records to ensure all appointments are scheduled and I will document them. -Continue cefazolin ? Continue dressing changes. - Continue on aspirin and plavix statin to cover for TIA Limited resuscitation.? Okay to do CPR but DO NOT INTUBATE.? Patient stated to do 2 cycles of CPR and if not resuscitated then stop. DVT prophylaxis: Lovenox 40 daily Attestations Medical Necessity Statement*: DC in AM to [facility] rehab. 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 of Care Code Acute Limousine And Hearse Upholsterer for [facility] Diagnoses TIA (transient ischemic attack) G45.9 Septic arthritis due to Streptococcus species M00.20 Atherosclerotic heart disease of [place] coronary artery with other forms of angina pectoris I25.118 Ischemic cardiomyopathy I25.5 Cardiac arrest due to underlying cardiac condition I46.2 Abnormal nuclear cardiac imaging test R93.1 Decubital ulcer L89.90 MSSA bacteremia R78.81; B95.61 Septic arthritis M00.9 Cardiomyopathy I42.9 Cardiomyopathy type: unspecified Chest pain R07.9 Chest pain type: unspecified Hyperlipidemia E78.5 Hypertension I10 Hypertension type: primary hypertension Coronary artery disease I25.119 Coronary Disease-Associated Artery/Lesion type: [place] artery [place] vs. transplanted heart: [place] heart Associated angina: with unspecified angina Diabetes E11.9 Diabetes mellitus type: type 2 Diabetes mellitus terminal makeup operator insulin use: without terminal makeup operator use Diabetes mellitus complication status: without complication GERD (gastroesophageal reflux disease) K21.9 Esophagitis presence: esophagitis presence not specified
--- NOTE | 2021-09-02 17:30 | PC.NURSE ---
Unable to flush PICC lines with saline and unable to administer antibiotic. Dr. Gudino notified and order received for cath chacorta.
[2021-09-02 17:41] LABS: Glucose Point of Care 126 mg/dL (70-110)
[2021-09-02] MEDS: alteplase 1 mg/mL SDV 2 mL 2 MG INTRACATH ×2 (18:08→18:11)
--- NOTE | 2021-09-02 19:17 | PC.NURSE ---
[id number] Nurse was able to aspiarate blood from both ports of the PICC line. Both lines flushed with 10 ml sterile saline.
--- NOTE | 2021-09-02 19:52 | PC.NURSE ---
Patient requested nurse remove his life vest. The patient states that the life vest rep stated that he did not have to wear the life vest at night becaUSE WHILE HE IS IN THE HOSPITAL he is on a cardiac tech and we have a defibrillatior to shock him if need be. The nurse explained to the patient that though he is being monitored and we can respond if he goes into an arrythmia there will still be a delay in our response as the vest will shock him immediately if needed. The patient states he understands and will wear the vest when he leaves but will not wear it neri, charge nurse Blessing made aware.
[2021-09-02] MEDS: trazodone 50 mg Tablet 25 MG PO (20:50)
[2021-09-02] MEDS: ketorolac 30 mg/mL INJ 15 MG IVP (20:50)
[2021-09-02] MEDS: enoxaparin 40 mg/0.4 mL Syringe SUBCUT (20:53)
[2021-09-02] MEDS: insulin lispro 100 unit/1 mL SUBCUT (22:00)
[2021-09-03] VITALS (7 sets, daily range): BP systolic 110–155; BP diastolic 75–86; PULSE 76–80; RESP 16–20; TEMP 36.8–36.9; O2SAT 94–99
--- NOTE | 2021-09-03 01:20 | PC.NURSE ---
Spoke with Dr Romo regarding patient complaints of left knee pain, despite IV Toradol and PO tylenol. The patient is still complaining of 9/[address] Romo ordered a one time dose of IV morphine and asked to pass along to the day team that the patient may need more ordered than tylenol for pain, has percocet on home medication list.
[2021-09-03] MEDS: morphine 4 mg/mL SDV 1 mL 2 MG IVP (01:25)
[2021-09-03 06:50] LABS: Glucose Point of Care 142 mg/dL (70-110)
[2021-09-03] MEDS: FUROsemide 40 mg Tablet PO (07:40)
[2021-09-03] MEDS: insulin lispro 100 unit/1 mL SUBCUT (07:40)
[2021-09-03] MEDS: ceFAZolin 2,000 MG in sodium chloride 0.9% (plus) 50 ML 100 MG IV (07:42)
--- NOTE | 2021-09-03 08:10 | P.DS_ITS ---
Discharge Providers Date of Admission: 08/29/21 18:36 Date of Discharge: September 03, 2021 Attending Provider at Admission: Erick Lobo Attending Provider at Discharge: Angeles Gudino MD Primary Care Provider: Souleymane Neal Diagnoses at Discharge Discharge Diagnosis (1) TIA (transient ischemic attack): Status: Acute (2) Septic arthritis due to Streptococcus species: Status: Acute (3) Atherosclerotic heart disease of [place] coronary artery with other forms of angina pectoris: Status: Acute (4) Ischemic cardiomyopathy: Status: Acute (5) Cardiac arrest due to underlying cardiac condition: Status: Acute (6) Abnormal nuclear cardiac imaging test: Status: Acute (7) Decubital ulcer: Status: Acute (8) MSSA bacteremia: Status: Acute (9) Septic arthritis: Status: Acute (10) Cardiomyopathy: Status: Acute Qualifiers: Cardiomyopathy type: unspecified Qualified Code(s): I42.9 - Cardiomyopathy, unspecified (11) Chest pain: Status: Acute Qualifiers: Chest pain type: unspecified Qualified Code(s): R07.9 - Chest pain, unspecified (12) Hyperlipidemia: Status: Acute (13) Hypertension: Status: Acute Qualifiers: Hypertension type: primary hypertension Qualified Code(s): I10 - Essential (primary) hypertension (14) Coronary artery disease: Status: Acute Qualifiers: Associated angina: with unspecified angina Coronary Disease-Associated Artery/Lesion type: [place] artery [place] vs. transplanted heart: [place] heart Qualified Code(s): I25.119 - Atherosclerotic heart disease of [place] coronary artery with unspecified angina pectoris (15) Diabetes: Status: Acute Qualifiers: Diabetes mellitus complication status: without complication Diabetes mellitus detention insulin use: without terminal computer operator use Diabetes mellitus type: type 2 Qualified Code(s): E11.9 - Type 2 diabetes mellitus without complications (16) GERD (gastroesophageal reflux disease): Status: Acute Qualifiers: Esophagitis presence: esophagitis presence not specified Qualified Code(s): K21.9 - Gastro-esophageal reflux disease without esophagitis Other Information Additional DC diagnoses/information: Patient had coronary angiogram performed on 08/31 that showed severe in-stent restenosis of large sized RCA and underwent successful revascularization with balloon angioplasty.? Mid LAD has LIFE SCIENCE TAXONOMIST and OM1 has moderate to severe disease treated medically. Continue current medications including aspirin and Plavix. Echo august 28, 2021 Technically limited quality echocardiogram because of poor ?ultrasonic windows ?LV systolic function is moderate to severely reduced with EF of ?30 to 35%.? Moderate to severe global hypokinesis ?Grade 1 diastolic dysfunction. ?The right ventricle is hypokinetic. ?Left atrium is dilated. ?Mild tricuspid regurgitation. ?Mildly dilated ascending aorta ?Compared to prior echocardiogram from 11/23/2020, no signficant ?changes are seen Reason for Visit Reason for Visit: Chest Pain Brief History: Pleasant 65-year-old gentleman transferred as a direct admission from [facility] due to new in quality, burning left-sided chest pain, initial plan currently admitted there for rehabilitation after an extensive recent hospitalization at [facility] [place] where he was assessed and managed for left knee septic arthritis, MSSA bacteremia, with hospitalization complicated by PEA cardiac arrest, required ACLS, with achievement of ROSC in about 5 minutes, subsequently with hypotension, requiring vasopressors, as well as requiring about 5 units RBC transfusion due to anemia.? With resultant rib and sternal fractures and continued pain.? They are also assessed by cardiology underwent ANTHONY, with finding of ejection fraction in the 15-20% range.? Some question of fluid around the spleen at the time was assessed by general surgery with recommended conservative management.? With prior history of TKA in 2014, after his condition stabilized, he was extubated, and subsequently underwent left knee hardware removal and cement spacer placement of the left knee.? PICC line was placed sometime before discharge from [facility], and he is continued on cefazolin as per ID recommendations every 8 hours tentatively until 09/23.? PICC line is to stay in until follow-up with ID. They are still was also started on vancomycin p.o. as a prophylaxis against C. difficile per documentation.? Knee synovial fluid grew MSSA.? He reports that he has appointments for follow-up with infectious disease in September, and was also referred for follow-up with cardiology, orthopedics.? He reports that he is toe-touch weightbearing on the left lower extremity.? Dressing changes are continued on the left knee, although he is not sure what kind of dressing, and I do not see a record of this in the paperwork that came with him.? He states that after clearance of bacteremia, reassessment with ID, then also he required extensive dental extraction as she states it was thought likely this was the source of entry for MSSA, before then further consideration of hardware reimplantation.? More detailed documentation from his hospitalization in [place] is in the paper chart. He reports the left-sided chest pain with burning sensation and stabbing, like a hot knife .? Denies that this pain was similar to the pain from the rib and sternal fractures.? Denies any change in his pain with position or breathing.? At [facility] due to persistence of the pain Nitropaste was applied and was started on ACS protocol, and after discussion with cardiology here request was made for transfer for additional assessment with stress test given prior history of coronary disease, as well as recent cardiac arrest.? He reports he is at the moment pain-free. Hospital Course Hospital Course Patient presented to our hospital for complaint of chest pain that was happening even when he was not taking deep breaths or when he was not exerting himself. He does see Dr. Ken as an outpatient. Recently he underwent a prolonged hospital stay at [facility] [place] where he was treated for left knee septic arthritis, MSSA bacteremia complicated by PEA cardiac arrest requiring ACLS. He ended up having a ANTHONY to rule out endocarditis and at that time ejection fraction was found to be 15 to 20%. Etiology of PEA cardiac arrest was thought to be septic shock. Eventually patient was sent to a swing bed and was given appointments to follow-up with cardiology, infectious disease, orthopedic surgery. His current medication regimen is cefazolin every 8 hours until September 23. He has been continued on that for now. ID saw him at his previous hospital who recommended for him to be on vancomycin p.o. twice daily for prophylaxis against C. difficile. Patient has also been recommending to do daily dressing changes which we have been doing here at the hospital. During hospital stay his white count has been normal, he has not been febrile and has not complained of pain in his knee. Dressings have been changed regularly and his knee wound appears good. He was mainly managed here for his chest pain and cardiac work-up. Initially patient had a cardiac stress test which was grossly abnormal with small areas of perfusion defects. We waited on records from [facility] and after it was determined that he did not have a cardiac angiogram there patient went for angiogram at our hospital. He received balloon angioplasty to his 2 previous drug-eluting stents in RCA. Patient had this procedure done on 08/31/2021. At this point he has been chest pain-free. And doing well from cardiac standpoint. He does have sternal and rib fractures from the past for which she has been getting lidocaine patch. Patient worked with physical therapy as well. Patient has been set up with a Life[facility]est on 09/02/2021. He will be following up with cardiology in our hospital as an outpatient within 1 week and within 1 month. I called his orthopedic surgeon today in [place] and they recommended we remove damir (every other one, instead of all) before he goes to swing bed. Damir were removed today. He was seen this morning. Patient is doing well. He is ready to go back to swing bed. Other appointments: The office have already been set up from his previous stay. 1.Dr. Souleymane Rush -call for appointment when discharged from swing bed [address] [facility] [address], [facility], [address], 2. Follow-up [facility] orthopedics [address] [place] [address] Cecilia Felder Oct 02, 2021 10.30 AM [address] [facility] [address], [place], [place] [phone] Ken within 1 month, Zaria Sue within 1 week [facility]. We will setup appointment prior to discharge. Physical Exam Narrative: General: Alert oriented x3, patient seen this morning.? Laying in bed comfortably at this time. HEENT: Normocephalic, atraumatic, EOMI, breathing normally on room air Cardio: Regular rate rhythm, normal S1-S2, chest pain reproducible to palpation Respiratory: Good bilateral air entry, no wheezes no rhonchi appreciated GI: Abdomen soft, nontender, nondistended, bowel sounds + Extremities: Trace lower extremity edema, no cyanosis, left knee wrapped with gauze dressing, dressing taken down, incision appears totally clean and normal, no drainage, well healed. Very mild edema around knee as expected. Discharge Data Studies Completed and Pending Completed Studies During Hospitalization Category Date Time Status CT head wo con* [id number] Stat Cat Scan 08/31/21 13:43 Completed CTA head neck [CT angio headneck* [id number]] Stat Cat Scan 08/31/21 15:37 Completed CXRP [XR chest 1V portable [id number]] Routine Exams 08/29/21 22:02 Completed Cardiac Stress Test MIBI [Sestamibi Stress Test Request Exams 08/28/21 07:00 Draft ] Routine NM kanika perf SPECT r/s* [id number] Routine Nuc Med 08/28/21 01:46 [place] [id number] Routine Ultrasound 08/28/21 02:23 Completed CV. echo limited [id number] Routine Ultrasound 08/28/21 Completed Pending at discharge Category Date Time Status GPS FIELD DATA COLLECTOR request for service Routine Exams 08/31/21 07:48 Taken Radiology Impressions Chest X-Ray 08/29/21 22:02 IMPRESSION: 1. Strandy opacities in the lower hemithoraces likely represents atelectasis. 2. Increased density in the retrocardiac region, findings that could represent a left basilar infiltrate and pneumonia. 3. The left hemidiaphragm is obscured possibly secondary to a left pleural effusion as well. Head CT 08/31/21 13:43 IMPRESSION: 1. No acute intracranial abnormality. 2. Atrophy and chronic deep white matter ischemic changes. Head/Neck CTA 08/31/21 15:37 IMPRESSION: No large vessel stenosis or occlusion. No large aneurysm. There is atherosclerotic plaque in the carotid siphons with luminal irregularity however no significant focal stenosis. IMPRESSION: Atherosclerotic plaque in the proximal bilateral internal carotid arteries with mild stenosis. REFERENCES: NASCET CRITERIA. The degree of internal carotid artery stenosis is based on NASCET criteria. Normal is no stenosis. Mild is less than 50% stenosis. Moderate is 50-69% stenosis. Severe is 70% to 99% stenosis. Total occlusion is no detectable patent lumen. Laboratory Results WBC 6.2 10^3/uL (4.0-10.0) 09/01/21 02:58 RBC 3.17 10^6/uL (4.1-5.3) L 09/01/21 02:58 Hgb 9.3 g/dL (11.7-16.6) L 09/01/21 02:58 Hct 30.7 % (42.0-52.0) L 09/01/21 02:58 MCV 96.8 fl (80-94) H 09/01/21 02:58 MCH 29.3 pg (28.0-34.0) 09/01/21 02:58 MCHC 30.3 g/dL (30.0-36.0) 09/01/21 02:58 RDW 13.5 % (12.1-15.1) 09/01/21 02:58 Plt Count 288 10^3/cmm (130-400) 09/01/21 02:58 MPV 9.0 fL (7.4-10.4) 09/01/21 02:58 Neut % (Auto) 44.1 % 09/01/21 02:58 Lymph % (Auto) 43.4 % 09/01/21 02:58 Colbert % (Auto) 9.2 % 09/01/21 02:58 Eos % (Auto) 2.8 % 09/01/21 02:58 Baso % (Auto) 0.2 % 09/01/21 02:58 Neut # (Auto) 2.73 10^3/uL (1.8-7.7) 09/01/21 02:58 Lymph # (Auto) 2.7 10^3/uL (0.8-4.8) 09/01/21 02:58 Colbert # (Auto) 0.6 10^3/uL (0.2-0.9) 09/01/21 02:58 Eos # (Auto) 0.2 10^3/uL (0.0-0.8) 09/01/21 02:58 Baso # (Auto) 0.0 10^3/uL (0.0-0.1) 09/01/21 02:58 Nucleated RBC % (auto) 0 % 09/01/21 02:58 Nucleated RBCs # 0.0 /100WBC 09/01/21 02:58 Sodium 136 mmol/L (136-145) 09/02/21 02:30 Potassium 3.6 mmol/L (3.5-5.1) 09/02/21 02:30 Chloride 97 mmol/L (98-107) L 09/02/21 02:30 Carbon Dioxide 27 mmol/L (22-29) 09/02/21 02:30 Anion Gap 15.6 (5-19) 09/02/21 02:30 BUN 15 mg/dL (8-23) 09/02/21 02:30 Creatinine 0.9 mg/dL (0.7-1.2) 09/02/21 02:30 GFR Calculation 84.7 mL/min (90-130) L 09/02/21 02:30 Glucose 109 mg/dL (65-115) 09/02/21 02:30 POC Glucose 142 mg/dL (70-110) H 09/03/21 06:47 Calculated Osmolality 283 mOsm/kg (285-295) L 09/02/21 02:30 Calcium 8.8 mg/dL (8.5-10.5) 09/02/21 02:30 Magnesium 2.1 mg/dL (1.7-2.3) 09/01/21 02:58 Total Bilirubin 0.9 mg/dL (0.15-1.2) 08/31/21 03:25 AST 20 U/L (0-40) 08/31/21 03:25 ALT < 5 U/L (0-41) 08/31/21 03:25 Alkaline Phosphatase 127 IU/L (40-130) 08/31/21 03:25 Troponin T Gen 5 ng/L 23 ng/L (0-15) H 08/28/21 04:43 Total Protein 8.2 g/dL (6.6-8.7) 08/31/21 03:25 Albumin 3.5 g/dL (3.5-5.2) 08/31/21 03:25 Globulin 4.7 g/dL (1.3-4.6) H 08/31/21 03:25 Vitals Last Vital Signs Temp 98.5 F 09/03/21 07:26 Pulse 79 09/03/21 07:26 Resp 18 09/03/21 07:26 BP 153/86 09/03/21 07:26 Pulse Ox 99 09/03/21 07:26 Discharge Plan Discharge Patient Disposition: Xfer SNF Condition: Stable Prescriptions: New clopidogrel 75 mg Tablet 75 mg PO DAILY 30 Days Qty: 30 2RF Continued fluoxetine 40 mg capsule 40 mg PO DAILY 0RF Flexeril 10 mg Tablet 10 mg PO TID PRN (Reason: Spasms) 0RF furosemide 40 mg Tablet 40 mg PO DAILY 0RF carvedilol 6.25 mg Tablet 6.25 mg PO BID 0RF Rx Instructions: must administer with a meal/food Lantus U-100 Insulin 100 unit/mL Solution 15 unit SUBCUT BID 0RF hydralazine 25 mg Tablet 25 mg PO TID 0RF hydroxyzine HCl 50 mg Tablet 50 mg PO Q6H PRN (Reason: Anxiety) 0RF Aspir-81 81 mg Tablet,Delayed Release (Dr/Ec) 81 mg PO DAILY 0RF famotidine 20 mg Tablet 20 mg PO BID 0RF benzonatate 100 mg Capsule 100 mg PO TID PRN (Reason: Cough) 0RF docusate sodium 100 mg Capsule 100 mg PO BID PRN (Reason: Constipation) 0RF gabapentin 100 mg Capsule 100 mg PO DAILY 0RF Flonase 50 mcg/actuation [place],Suspension 2 spray INTRANASAL DAILY 0RF Rx Instructions: administer into each nostril cetirizine 10 mg Capsule 10 mg PO DAILY 0RF glucagon 1 mg/0.2 mL Auto-Injector See Rx Instructions .ROUTE .COMPLEX 0RF Rx Instructions: DIRECTED vancomycin 125 mg Capsule 125 mg PO BID 0RF Percocet 5-325 mg Tablet 2 tab PO Q6H PRN (Reason: Pain) 0RF lidocaine 5 % Adhesive Patch,Medicated 2 patch TOPICAL DAILY 0RF Rx Instructions: leave on most painful area for up to 12 hrs promethazine 25 mg Tablet 25 mg PO TID PRN (Reason: Nausea) 0RF Nitrostat 0.4 mg Tablet, Sublingual 0.4 mg SUBLINGUAL Q5M PRN (Reason: Chest Pain) 0RF Rx Instructions: do not exceed 3 doses per episode Humalog U-100 Insulin 100 unit/mL Solution See Rx Instructions .ROUTE .COMPLEX 0RF Rx Instructions: SLIDING SCALE vitamin E 400 unit Capsule 400 unit PO DAILY 0RF Theragran-M Tablet 1 tab PO DAILY 0RF naloxone 0.4 mg/mL Syringe 0.1 mg IM Q2M PRN (Reason: Opioid Overdose) 0RF Rx Instructions: NTExceed 10 mg total dose/episode Florastor 250 mg Capsule 250 mg PO BID 0RF quetiapine 50 mg Tablet 50 mg PO BID 0RF melatonin 5 mg Tablet 5 mg PO BEDTIME 0RF potassium chloride 20 mEq Tablet Extended Release 20 meq PO DAILY 0RF Discharge Orders: Discharge Order (Routine); Ordered 09/03/21 Ordered By: Angeles Gudino Referrals: [place]leton,Zaria, REIN[employer]ING STE[employer]ACER [Nurse Practitioner] - 1 week Suellen,Joanna, MD [Physician] - 1 month Discharge Diet: Cardiac and Diabetic Discharge Activity: Increase activity as tolerated and As per PT/OT instructions Activity Restrictions/Additional Instructions: Note: Patient will need to continue cefazolin 2g q8 hours until sep 23, 2021 Other appointments: The office have already been set up from his previous stay. 1.Dr. Souleymane Rush -call for appointment when discharged from swing bed [address] [address], [facility], [address], 2. Follow-up [facility] orthopedics [place] [place] [address] September 19, 9.[address] Cecilia Felder Oct 02, 2021 10.30 AM [address] [address], [place] [phone] Ken within 1 month, Zaria Sue within 1 week [facility]. We will setup appointment prior to discharge. Discharge Attestations Time Spent in Discharge Care*: greater than 30 min Quality Metrics Clinical Quality Measures [ No reported AMI, CVA or VTE this stay] 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 of Care Code Acute g FW DC note Diagnoses TIA (transient ischemic attack) G45.9 Septic arthritis due to Streptococcus species M00.20 Atherosclerotic heart disease of [place] coronary artery with other forms of angina pectoris I25.118 Ischemic cardiomyopathy I25.5 Cardiac arrest due to underlying cardiac condition I46.2 Abnormal nuclear cardiac imaging test R93.1 Decubital ulcer L89.90 MSSA bacteremia R78.81; B95.61 Septic arthritis M00.9 Cardiomyopathy I42.9 Cardiomyopathy type: unspecified Chest pain R07.9 Chest pain type: unspecified Hyperlipidemia E78.5 Hypertension I10 Hypertension type: primary hypertension Coronary artery disease I25.119 Associated angina: with unspecified angina Coronary Disease-Associated Artery/Lesion type: [place] artery [place] vs. transplanted heart: [place] heart Diabetes E11.9 Diabetes mellitus complication status: without complication Diabetes mellitus terminal computer operator insulin use: without terminal computer operator use Diabetes mellitus type: type 2 GERD (gastroesophageal reflux disease) K21.9 Esophagitis presence: esophagitis presence not specified
[2021-09-03] MEDS: gabapentin 100 mg Capsule PO (08:38)
[2021-09-03] MEDS: hyDRALAzine 25 mg Tablet PO (08:38)
[2021-09-03] MEDS: aspirin 81 mg EC Tablet PO (08:38)
[2021-09-03] MEDS: lactobacillus 1 Tablet 1 TAB PO (08:38)
[2021-09-03] MEDS: fluoxetine 20 mg Capsule 40 MG PO (08:38)
[2021-09-03] MEDS: carvedilol 6.25 mg Tablet PO (08:38)
[2021-09-03] MEDS: famotidine 20 mg Tablet PO (08:38)
[2021-09-03] MEDS: clopidogrel 75 mg Tablet PO (08:38)
[2021-09-03] MEDS: fluticasone nasal spray 16gm Btl 2 SPRAY NASAL (08:46)
[2021-09-03] MEDS: ondansetron 2 mg/ML SDV 2 mL 4 MG IVP (09:11)
[2021-09-03] MEDS: lidocaine 5% Patch 1 PATCH TOPICAL (09:17)
[2021-09-03] MEDS: morphine 4 mg/mL SDV 1 mL 1 MG IVP (10:03)
[2021-09-03 11:05] LABS: Glucose Point of Care 166 mg/dL (70-110)
[2021-09-03 11:05] LABS: Glucose Point of Care 146 mg/dL (70-110)
--- NOTE | 2021-09-03 11:23 | PC.NURSE ---
845 Provider at bedside verbal instruction to remove every other staple from left Knee incision and give 1mg morphine IVP per procedure 1000 angie removed
--- NOTE | 2021-09-03 12:00 | PC.NURSE ---
Discharge Note Patient discharged to [facility] via ambulance accompanied by personal. Discharge instructions reviewed with patient and/or service support representative. Mobile pharmacy medications and/or prescriptions provided. Belongings/home medications returned.
--- NOTE | 2021-09-03 16:29 | PC.SOCIAL ---
IMM UPDATED IMM dated and initialed copy given to patient and copy placed in chart
== END 2021-09-03 12:00 | disposition swing bed (61) | DRG 251 ==
LOC: ICU 16:52 → MEDSURG 21:02
PROVIDERS: Internal Medicine; Admitting Provider Internal Medicine; PCP Family Medicine; Visit Provider Internal Medicine
PROC: 02703ZZ Dilation of Coronary Artery, One Artery, Percutaneous Approach (ICD-10-PCS; principal; 2021-08-31 08:30)
PROC: 02703ZZ Dilation of Coronary Artery, One Artery, Percutaneous Approach (ICD-10-PCS; 2021-08-31 08:30)
DX: T82.855A Stenosis of coronary artery stent, initial encounter (principal); I50.22 Chronic systolic (congestive) heart failure; M96.89 Other intraoperative and postprocedural complications and disorders of the musculoskeletal system; G45.9 Transient cerebral ischemic attack, unspecified; Y71.8 Miscellaneous cardiovascular devices associated with adverse incidents, not elsewhere classified; I25.119 Atherosclerotic heart disease of native coronary artery with unspecified angina pectoris; I25.82 Chronic total occlusion of coronary artery; I25.2 Old myocardial infarction; I11.0 Hypertensive heart disease with heart failure; Z87.891 Personal history of nicotine dependence; G89.29 Other chronic pain; M54.9 Dorsalgia, unspecified; E11.9 Type 2 diabetes mellitus without complications; F41.1 Generalized anxiety disorder; K21.9 Gastro-esophageal reflux disease without esophagitis; E78.5 Hyperlipidemia, unspecified; I25.5 Ischemic cardiomyopathy; L89.151 Pressure ulcer of sacral region, stage 1; Z96.652 Presence of left artificial knee joint; Z79.891 Long term (current) use of opiate analgesic; Z79.82 Long term (current) use of aspirin; Z79.4 Long term (current) use of insulin; Y84.8 Other medical procedures as the cause of abnormal reaction of the patient, or of later complication, without mention of misadventure at the time of the procedure
CPT/HCPCS: 36415; 36416; 36592; 70450; 70496; 70498; 71045; 78452; 80048; 80053; 82962; 83735; 84484; 85025; 92920; 93005; 93017; 93308; 93454; 93971; 96372; 97161; 97530; A9500; C1725; C1769; C1887; C1894; G0378; G0379; J0690; J1100; J1200; J1644; J1650; J1815; J1885; J2060; J2250; J2270; J2405; J2704; J2710; J2785; J2997; J3010; J3370; J3475; J3480; J3490; J7030; Q9967

== ENCOUNTER → 2021-09-10 10:33 | Outpatient (BNVA) | payer MEDICARE, SELFPAY | PROVIDERS: PCP Family Medicine; Visit Provider Nurse Practitioner Family | DX: I25.118 Atherosclerotic heart disease of native coronary artery with other forms of angina pectoris (principal); I11.0 Hypertensive heart disease with heart failure; I50.22 Chronic systolic (congestive) heart failure | CPT/HCPCS: 99213 ==

== ENCOUNTER → 2021-10-23 14:25 | Outpatient (BNVA) | payer MEDICARE, SELFPAY | PROVIDERS: PCP Family Medicine; Visit Provider Internal Medicine Cardiovascular Disease | DX: I25.119 Atherosclerotic heart disease of native coronary artery with unspecified angina pectoris (principal); I11.0 Hypertensive heart disease with heart failure; I50.22 Chronic systolic (congestive) heart failure; I42.9 Cardiomyopathy, unspecified; E78.5 Hyperlipidemia, unspecified; F17.220 Nicotine dependence, chewing tobacco, uncomplicated | CPT/HCPCS: 99214 ==

== ENCOUNTER 2021-11-15 13:59 | Outpatient (CLI) | payer MEDICARE, SELFPAY ==
--- NOTE | 2021-11-15 14:30 | USCV_ITS ---
Amando Hearn Age: 66 Gender: M : 1955 Exam Date: 11/15/2021 14:24 Ordering Phys: Joanna Ken MD ([email or web address]) Technologist: Shayy Loo Exam Location: [facility] [place] Indication: assess LV function BP: 110 / 78 HR: 78 Rhythm: Sinus Technical Quality: Poor MEASUREMENTS (Male / Female) Normal Values 2D ECHO LV Diastolic Diameter PLAX 5.9 cm 4.2 - 5.9 / 3.9 - 5.3 cm LV Systolic Diameter PLAX 4.6 cm IVS Diastolic Thickness 0.6 cm 0.6 - 1.0 / 0.6 - 0.9 cm IVS Systolic Thickness 0.9 cm LVPW Diastolic Thickness 1.2 cm 0.6 - 1.0 / 0.6 - 0.9 cm LVPW Systolic Thickness 1.7 cm LVOT Diameter 2.2 cm LV Ejection Fraction 2D Teich 43.3 % LV Ejection Fraction MOD 2C 21.6 % LV Ejection Fraction 2C AL 20.7 % LA Diameter 2.4 cm LA Width 3.4 cm LA Height 6.6 cm RA Width 4.2 cm RA Height 4.4 cm Aorta at Sinotubular Diameter 3.1 cm IVC Diameter 1.6 cm M-MODE MV E Point Septal Separation 2.2 cm DOPPLER AV Peak Velocity 129.0 cm/s LVOT Peak Velocity 60.0 cm/s AV Area Cont Eq vti 1.8 cm squared AV Area Cont Eq pk 1.8 cm squared MV Peak Velocity 106.0 cm/s MV Area PHT 5.1 cm squared Mitral E to A Ratio 0.7 MV E' Velocity 74.0 cm/s TR Peak Velocity 124.0 cm/s TR Peak Gradient 6.2 mmHg Right Atrial Pressure 3.0 mmHg Pulmonary Artery Systolic Pressu 9.2 mmHg PV Peak Velocity 87.0 cm/s RV Acceleration Time 0.1 s RV Ejection Time 0.2 s RV AcT/ET 0.4 FINDINGS Left Ventricle Probably moderately to severely reduced left ventricle systolic function. This study is inadequate for estimation of regional wall motion abnormality. Right Ventricle Right ventricle not well visualized. Probably normal right ventricle size and systolic function. Right ventricular systolic pressure 9.2 mmHg. Right Atrium Normal right atrial size. Left Atrium Mildly increased left atrial size. Mitral Valve Mitral valve not well visualized. No mitral valve stenosis. No mitral valve regurgitation. Aortic Valve Aortic valve not well visualized. Probably mildly thickened trileaflet aortic valve. No aortic valve stenosis. Tricuspid Valve Tricuspid valve not well visualized. Pulmonic Valve Pulmonic valve not well visualized. Pericardium No pericardial effusion. Aorta Aorta not well visualized. IVC Inferior vena cava not visualized. CONCLUSIONS 1. This is a technically difficult study. 2. Probably moderately to severely reduced left ventricle systolic function. This study is inadequate for estimation of regional wall motion abnormality. 3. Repeat study with echo contrast is recommended. Joanna Ken MD (Electronically Signed) Final Date: 19 November 2021 11:21 S
== END 2021-11-15 14:00 | disposition home or self-care (01) ==
PROVIDERS: PCP Family Medicine; Visit Provider Internal Medicine Cardiovascular Disease
DX: I25.119 Atherosclerotic heart disease of native coronary artery with unspecified angina pectoris (principal); R06.02 Shortness of breath; R93.1 Abnormal findings on diagnostic imaging of heart and coronary circulation
CPT/HCPCS: 93306

== ENCOUNTER 2022-01-02 09:06 | Outpatient (CLI) | payer MEDICARE, SELFPAY ==
--- NOTE | 2022-01-02 09:15 | USCV_ITS ---
Amando Hearn Age: 66 Gender: M : 1955 Exam Date: 01/02/2022 09:26 Ordering Phys: Joanna Ken MD ([email or web address]) Technologist: ASAD Exam Location: [facility] [place] Indication: Assessment of LV function BP: 102 / 66 HR: 73 Rhythm: Sinus Technical Quality: Poor MEASUREMENTS (Male / Female) Normal Values 2D ECHO LVOT Diameter 2.0 cm LV Ejection Fraction MOD 2C 27.7 % LV Ejection Fraction 2C AL 28.2 % LA Diameter 3.9 cm LA Width 4.1 cm LA Height 6.2 cm RA Width 4.4 cm RA Height 5.5 cm Aorta at Sinotubular Diameter 2.8 cm M-MODE Aortic Annulus Diameter 3.8 cm LA Ao Ratio MM 0.9 MV E Point Septal Separation 1.5 cm DOPPLER Right Atrial Pressure 8.0 mmHg FINDINGS Left Ventricle Mild dilated left ventricle. Moderately to severely decreased left ventricular systolic function. Left ventricular ejection fraction is estimated at 30 % visually and 27% by modified biplane method. There is moderate global hypokinesis with regional variation. Abnormal septal motion. Right Ventricle Normal right ventricular size and systolic function. Right Atrium Normal right atrial size. Left Atrium Mildly increased left atrial size. Mitral Valve Structurally normal mitral valve. Aortic Valve Structurally normal trileaflet aortic valve. Tricuspid Valve Structurally normal tricuspid valve. Pulmonic Valve Structurally normal pulmonic valve. Pericardium No pericardial effusion. Aorta Normal size aortic root and proximal ascending aorta. IVC Inferior vena cava not visualized. CONCLUSIONS 1. This is a technically difficult study. Optison was used per protocol. 2. Mild dilated left ventricle. Moderately decreased left ventricular systolic function. Left ventricular ejection fraction is estimated at 30 % visually and 27% by modified biplane method. There is moderate global hypokinesis with regional variation. 3. Direct comparison to previous study is not possible due to quality of the study. Joanna Ken MD (Electronically Signed) Final Date: 03 January 2022 12:55 S
[2022-01-02] MEDS: perflutren protein-a microsphr 0.22 mg/mL SDV 3 mL IV (09:51)
[2022-01-02 10:03] LABS: Anion Gap 12.1 (5-19); Blood Urea Nitrogen 15 mg/dL (8-23); Calcium 9.6 mg/dL (8.5-10.5); Carbon Dioxide 28 mmol/L (22-29); Chloride 99 mmol/L (98-107); Glomerular Filtration Rate 84.4 mL/min (90-130); Glucose 139 mg/dL (65-115); NT Pro B Type Natriuretic Pept 592 pg/mL (0-125); Osmolality Calculated 283 mOsm/kg (285-295); Potassium 4.1 mmol/L (3.5-5.1); Sodium 135 mmol/L (136-145)
== END 2022-01-02 09:07 | disposition home or self-care (01) ==
LOC: RAD 09:07
PROVIDERS: PCP Family Medicine; Visit Provider Internal Medicine Cardiovascular Disease
DX: E78.5 Hyperlipidemia, unspecified (principal); I10 Essential (primary) hypertension; I25.119 Atherosclerotic heart disease of native coronary artery with unspecified angina pectoris; I42.9 Cardiomyopathy, unspecified; R06.02 Shortness of breath; I25.5 Ischemic cardiomyopathy
CPT/HCPCS: 36415; 80048; 83735; 83880; C8924; Q9956

== ENCOUNTER → 2022-01-21 14:15 | Outpatient (BNVA) | payer MEDICARE, SELFPAY | PROVIDERS: PCP Family Medicine; Visit Provider Nurse Practitioner Family | DX: I50.20 Unspecified systolic (congestive) heart failure (principal); I25.10 Atherosclerotic heart disease of native coronary artery without angina pectoris; I10 Essential (primary) hypertension | CPT/HCPCS: 36415; 80048; 83880; 85025; 99214 ==

== ENCOUNTER 2022-02-22 16:57 | Emergency (ER) | payer MEDICARE, SELFPAY ==
[2022-02-22 16:58] VITALS: BP 183/92; PULSE 83; RESP 18; TEMP 36.9; O2SAT 97
--- NOTE | 2022-02-22 17:07 | XRR_ITS ---
PROCEDURE INFORMATION: Exam: XR Chest Exam date and time: 02/22/2022 5:15 PM Age: 66 years old Clinical indication: Cough and dyspnea; Additional info: Dyspnea/cough TECHNIQUE: Imaging protocol: Radiologic exam of the chest. Views: 1 view. COMPARISON: CR XR chest 1V portable [id number] 08/30/2021 1:37 AM FINDINGS: Lungs: Mild COPD. Lung base scarring. No consolidation. Trace LLL platelike atelectasis. Pleural spaces: Unremarkable. No pleural effusion. No pneumothorax. Heart/Mediastinum: Moderate-sized hiatal hernia likely. Bones/joints: Unremarkable. XR/XR chest 1V portable [id number] IMPRESSION: 1. No acute finding. 2. Lung findings have improved from 08/30/2021. Chronic findings again seen.
--- NOTE | 2022-02-22 17:07 | ECG_ITS ---
[facility] Test Date: 2022-02-22 Pat Name: Amando Hearn Department: Room: Gender: Male Target Man: : 1955 Requested By: Walter Mcpherson Order Number: [id number] Sofiya MD: Morteza Pedraza M.D. Measurements Intervals [place] Rate: 83 P: 54 IA: 191 QRS: -50 QRSD: 124 T: 5 QT: 361 QTc: 425 Interpretive Statements SINUS RHYTHM ANTEROLATERAL MYOCARDIAL INFARCTION , OF INDETERMINATE AGE [40+ ms Q WAVE IN I/aVL/V3-V6] Q waves in inferior leads suggesting old inferior wall RI Compared to ECG 08/31/2021 13:33:22 Left ventricular hypertrophy no longer present ST (T wave) deviation no longer present Myocardial infarct finding still present Electronically Signed On 02-23-2022 20:15:44 EMBOSSING MACHINE TENDER by Morteza Pedraza M.D. [id number] f
[2022-02-22 17:10] VITALS: BP 183/92; PULSE 85; RESP 15; O2SAT 96
[2022-02-22 17:15] LABS: Basophils % 0.1 %; Eosinophils # 0.2 10^3/uL (0.0-0.8); Hematocrit 46.7 % (42.0-52.0); Hemoglobin 15.2 g/dL (11.7-16.6); Lymphocytes # 1.7 10^3/uL (0.8-4.8); Lymphocytes % 17.8 %; Mean Corpuscular HGB Conc 32.5 g/dL (30.0-36.0); Mean Corpuscular Hemoglobin 30.8 pg (28.0-34.0); Mean Corpuscular Volume 94.7 fl (80-94); Mean Platelet Volume 9.9 fL (7.4-10.4); Monocytes # 0.5 10^3/uL (0.2-0.9); Monocytes % 5.7 %; Neutrophils % 74.1 %; Nucleated Red Blood Cells % 0 %; Platelet Count 273 10^3/cmm (130-400); Red Blood Count 4.93 10^6/uL (4.1-5.3); Red Cell Distribution Width 12.3 % (12.1-15.1); White Blood Count 9.5 10^3/uL (4.0-10.0)
--- NOTE | 2022-02-22 17:35 | W.ED.CHESTPA ---
HPI - Chest Pain General: Chief Complaint: Chest Pain Stated Complaint: CHEST PAIN; SYNCOPE Time Seen by Provider: 02/22/22 16:57 Source: patient Mode of arrival: EMS History of Present Illness: 66-year-old male with a history of cardiomyopathy. He is supposed to have an ICD and currently is well triggering LifeVest but he has not been wearing it for some time there were 3 episodes where he evidently had nonsustained V. tach COVID and was not shocked. There is an alarm on the rest is gone off several times he is found this annoying so he stopped wearing it. He states he gets lightheaded and dizzy at times when he walks. Today he was sitting got lightheaded dizzy family thought he looked like he was having a seizure and never had any chest discomfort. He is not wearing his LifeVest we do not know what his rhythm was at the time. When patient arrived here he has not had any V. tach or V. fib that EMS reported on their monitor. Pertinent past history: coronary artery disease Timing of current episode: episodic Prior episodes: Yes Onset: during rest Relieving factors: nothing Exacerbating factors: nothing Associated symptoms: Reports diaphoresis; Deny abdominal pain, dyspnea, fever(s), leg edema, nausea, palpitations, sense of impending doom, syncope or vomiting Treatment prior to arrival: none Review of Systems Const: Reports: diaphoresis; Denies: fever(s), chills, fatigue or malaise ENMT: Denies: throat pain, ear or mastoid pain, nasal discharge or nasal congestion Card: Reports: irregular heart rhythm, lightheadedness and dyspnea on exertion; Denies: chest pain, palpitations, edema, swelling of feet/ankles or syncope Resp: Denies: dyspnea, productive cough or non-productive cough GI: Denies: abdominal pain, nausea or vomiting : Denies: flank pain, dysuria, urinary frequency or urinary urgency Skin/Breast: Denies: rash or pruritus PFSH ED PFSH: Medical History Anemia Cardiac arrest Chewing tobacco nicotine dependence Chronic back pain Coronary artery disease Diabetes RAMAN (generalized anxiety disorder) GERD (gastroesophageal reflux disease) HFrEF (heart failure with reduced ejection fraction) Hyperlipidemia Hypertension Ischemic cardiomyopathy MSSA bacteremia Rib fractures Septic arthritis Sternal fracture Surgical History History of total knee arthroplasty Stented coronary artery Family History Other CAD (coronary artery disease) Myocardial infarction Social History Smoking and tobacco status: never smoked Quit status (tobacco): has quit using tobacco Alcohol intake: current Alcohol intake frequency: holidays/special occasions only Alcohol type: beer, wine and hard liquor Physical Exam Const: COMMON NORMALS: no acute distress GENERAL APPEARANCE: cooperative and comfortable ORIENTATION/CONSCIOUSNESS: Yes awake, Yes oriented to person, Yes oriented to place and Yes oriented to time HENMT: COMMON NORMALS: normocephalic, atraumatic, hearing grossly normal bilaterally, external ears normal, EAC's normal, TM's normal bilaterally, Normal nasal mucous membranes and turbinates present, moist oral mucous membranes and oropharynx normal HEAD & SCALP: normocephalic and atraumatic NOSE: Normal nasal mucous membranes and turbinates present EXTERNAL EAR: Yes external ears normal EXTERNAL AUDITORY CANAL: EAC's normal TYMPANIC MEMBRANE: TM's normal bilaterally Eye: COMMON NORMALS: Equal, round and reactive pupils present, EOMs intact bilaterally, conjunctivae normal and no scleral icterus CONJUNCTIVA: Yes conjunctivae normal PUPIL: Yes Equal, round and reactive pupils present Neck/C-Spine: COMMON NORMALS: full ROM, no lymphadenopathy and supple Resp: COMMON NORMALS: normal respiratory effort, No retractions, No use of accessory muscles and clear to auscultation bilaterally AUSCULTATION: clear to auscultation bilaterally Cardio: COMMON NORMALS: regular rate, regular rhythm and No murmurs present (Cardio) RATE: regular rate RHYTHM: regular rhythm GI: COMMON NORMALS: Soft to palpation and No hepatosplenomegaly present AUSCULTATION: Yes normoactive bowel sounds PALPATION: Yes Soft to palpation, No Tenderness to palpation present (GI), No Guarding due to palpation present (GI) and Yes No hepatosplenomegaly present Extremity: COMMON NORMALS: normal to inspection, capillary refill normal, no clubbing, cyanosis or edema, no calf tenderness and no pedal edema Neuro: SENSORIUM/ORIENTATION: Yes oriented to person, Yes oriented to place and Yes oriented to time Skin: COMMON NORMALS: no rashes or lesions noted GENERAL SKIN EXAM: no rashes or lesions noted Course Vital Signs: Vital signs: Vital Signs Temperature 98.5 F 02/22/22 16:58 Pulse Rate 89 02/22/22 23:34 Respiratory Rate 15 02/22/22 23:34 Blood Pressure 142/64 02/22/22 23:34 Pulse Oximetry 94 02/22/22 23:34 Oxygen Delivery Me thod 02/22/22 18:49 MDM - Chest Pain Medical Decision Making EKG unchanged from previous EKGs no acute changes. Labs and imaging reviewed troponins not elevated. During the time the patient was here went back and reviewed all of his monitoring in the department there were no episodes of V. tach or V. fib. With possible he had a nonsustained run of V. tach or V. fib. His cardiac enzymes are negative. He is not had any further episodes he may have also had an absence seizure although he has not previously had seizures. At this point I do not think he needs to be started on any antiarrhythmics. Impressed upon him the importance of wearing the LifeVest regularly. Reviewed the intent of the LifeVest with him and why he must continue with that. We will go ahead and discharge the patient home set up for outpatient sleep deprived EEG. Patient vies to wear LifeVest. Return if is further problems. Medical Records I reviewed the patient's medical records. Lab Data I reviewed the patient's lab results. 02/22/22 17:05 02/22/22 17:05 Radiology Impressions Chest X-Ray 02/22/22 17:07 IMPRESSION: 1. No acute finding. 2. Lung findings have improved from 08/30/2021. Chronic findings again seen. Laboratory Results WBC 9.5 10^3/uL (4.0-10.0) 02/22/22 17:05 RBC 4.93 10^6/uL (4.1-5.3) 02/22/22 17:05 Hgb 15.2 g/dL (11.7-16.6) 02/22/22 17:05 Hct 46.7 % (42.0-52.0) 02/22/22 17:05 MCV 94.7 fl (80-94) H 02/22/22 17:05 MCH 30.8 pg (28.0-34.0) 02/22/22 17:05 MCHC 32.5 g/dL (30.0-36.0) 02/22/22 17:05 RDW 12.3 % (12.1-15.1) 02/22/22 17:05 Plt Count 273 10^3/cmm (130-400) 02/22/22 17:05 MPV 9.9 fL (7.4-10.4) 02/22/22 17:05 Neut % (Auto) 74.1 % 02/22/22 17:05 Lymph % (Auto) 17.8 % 02/22/22 17:05 [place] % (Auto) 5.7 % 02/22/22 17:05 Eos % (Auto) 2.0 % 02/22/22 17:05 Baso % (Auto) 0.1 % 02/22/22 17:05 Neut # (Auto) 7.00 10^3/uL (1.8-7.7) 02/22/22 17:05 Lymph # (Auto) 1.7 10^3/uL (0.8-4.8) 02/22/22 17:05 [place] # (Auto) 0.5 10^3/uL (0.2-0.9) 02/22/22 17:05 Eos # (Auto) 0.2 10^3/uL (0.0-0.8) 02/22/22 17:05 Baso # (Auto) 0.0 10^3/uL (0.0-0.1) 02/22/22 17:05 Nucleated RBC % (auto) 0 % 02/22/22 17:05 Nucleated RBCs # 0.0 /100WBC 02/22/22 17:05 Sodium 132 mmol/L (136-145) L 02/22/22 17:05 Potassium 4.5 mmol/L (3.5-5.1) 02/22/22 17:05 Chloride 96 mmol/L (98-107) L 02/22/22 17:05 Carbon Dioxide 27 mmol/L (22-29) 02/22/22 17:05 Anion Gap 13.5 (5-19) 02/22/22 17:05 BUN 19 mg/dL (8-23) 02/22/22 17:05 Creatinine 1.0 mg/dL (0.7-1.2) 02/22/22 17:05 GFR Calculation 74.8 mL/min (90-130) L 02/22/22 17:05 Glucose 171 mg/dL (65-115) H 02/22/22 17:05 Calculated Osmolality 280 mOsm/kg (285-295) L 02/22/22 17:05 Calcium 10.2 mg/dL (8.5-10.5) 02/22/22 17:05 Total Bilirubin 0.6 mg/dL (0.15-1.2) 02/22/22 17:05 AST 12 U/L (0-40) 02/22/22 17:05 ALT 11 U/L (0-41) 02/22/22 17:05 Alkaline Phosphatase 136 U/L (40-130) H 02/22/22 17:05 Troponin T Baseline 15 ng/L (0-15) 02/22/22 17:05 Troponin T 120 Minute 13.38 ng/L (0-15) 02/22/22 19:05 Delta Troponin T -1.62 ABS# (0-10) L 02/22/22 19:05 NT-Pro-B Natriuret Pep 509 pg/mL (0-125) H 02/22/22 17:05 Total Protein 8.7 g/dL (6.6-8.7) 02/22/22 17:05 Albumin 4.4 g/dL (3.5-5.2) 02/22/22 17:05 Globulin 4.3 g/dL (1.3-4.6) 02/22/22 17:05 Discharge Plan Discharge Patient Disposition: Home Clinical Impression: Ischemic cardiomyopathy, Absence attack Condition: Stable Prescriptions: No Action atorvastatin 40 mg tablet 40 mg PO DAILY spironolactone 25 mg tablet 25 mg PO DAILY carvedilol 6.25 mg tablet 6.25 mg PO BID Rx Instructions: must administer with a meal/food alprazolam 0.25 mg tablet 0.25 mg PO DAILY losartan 25 mg tablet 12.5 mg PO DAILY Qty: 45 1RF cyclobenzaprine 10 mg Tablet 10 mg PO TID PRN (Reason: Spasms) hydroxyzine HCl 50 mg Tablet 50 mg PO Q6H PRN (Reason: Anxiety) aspirin 81 mg Tablet,Delayed Release (Dr/Ec) 81 mg PO DAILY famotidine 20 mg Tablet 20 mg PO BID docusate sodium 100 mg Capsule 100 mg PO BID PRN (Reason: Constipation) gabapentin 100 mg Capsule 100 mg PO DAILY fluticasone propionate 50 mcg/actuation [place],Suspension 2 spray INTRANASAL DAILY Rx Instructions: administer into each nostril cetirizine 10 mg Capsule 10 mg PO DAILY Percocet 5-325 mg Tablet 2 tab PO Q6H PRN (Reason: Pain) lidocaine 5 % Adhesive Patch,Medicated 2 patch TOPICAL DAILY Rx Instructions: leave on most painful area for up to 12 hrs Nitrostat 0.4 mg Tablet, Sublingual 0.4 mg SUBLINGUAL Q5M PRN (Reason: Chest Pain) Rx Instructions: do not exceed 3 doses per episode vitamin E 400 unit Capsule 400 unit PO DAILY multivitamin,tx-minerals Tablet 1 tab PO DAILY naloxone 0.4 mg/mL Syringe 0.1 mg IM Q2M PRN (Reason: Opioid Overdose) Rx Instructions: NTExceed 10 mg total dose/episode quetiapine 50 mg Tablet 50 mg PO BID melatonin 5 mg Tablet 5 mg PO BEDTIME potassium chloride 20 mEq Tablet Extended Release 20 meq PO DAILY clopidogrel 75 mg Tablet 75 mg PO DAILY 30 Days Qty: 30 2RF Discharge Orders: Discharge ED (Routine); Ordered 02/22/22 Ordered By: Walter Darby Referrals: Souleymane Neal [Primary Care Provider] - Patient Instructions: Opioid Safety, Pain Management Activity Restrictions/Additional Instructions: You were seen today for episodes of sound as if you may have had an absence seizure. During the time you are here you had no significant arrhythmias. Is very important because of your ischemic cardiomyopathy that you wear your LifeVest 24 hours a day. There were no arrhythmias on the monitor while you were in the emergency room. Your cardiac enzymes were normal your chest x-ray did not show any significant abnormalities. There were no acute changes on your EKG. Case management make arrangements for you to set up outpatient EEG to further evaluate. 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
[2022-02-22 17:41] LABS: Troponin(5th) Baseline 15 ng/L (0-15)
[2022-02-22 17:49] LABS: Alanine Aminotransferase 11 U/L (0-41); Albumin Level 4.4 g/dL (3.5-5.2); Alkaline Phosphatase 136 U/L (40-130); Anion Gap 13.5 (5-19); Aspartate Amino Transferase 12 U/L (0-40); Blood Urea Nitrogen 19 mg/dL (8-23); Calcium 10.2 mg/dL (8.5-10.5); Carbon Dioxide 27 mmol/L (22-29); Chloride 96 mmol/L (98-107); Globulin 4.3 g/dL (1.3-4.6); Glomerular Filtration Rate 74.8 mL/min (90-130); Glucose 171 mg/dL (65-115); NT Pro B Type Natriuretic Pept 509 pg/mL (0-125); Osmolality Calculated 280 mOsm/kg (285-295); Potassium 4.5 mmol/L (3.5-5.1); Sodium 132 mmol/L (136-145); Total Bilirubin 0.6 mg/dL (0.15-1.2); Total Protein 8.7 g/dL (6.6-8.7)
[2022-02-22 18:01] VITALS: BP 190/89; PULSE 88; RESP 16; O2SAT 96
[2022-02-22 18:49] VITALS: BP 176/101; PULSE 86; RESP 15; O2SAT 96
--- NOTE | 2022-02-22 19:12 | ECG_ITS ---
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 Measurements Intervals [place] Rate: 84 P: 31 ND: 193 QRS: 114 QRSD: 120 T: 43 QT: 372 QTc: 442 Interpretive Statements SINUS RHYTHM LEFT POSTERIOR FASCICULAR BLOCK [QRS AXIS > 109, INFERIOR Q] ANTEROLATERAL MYOCARDIAL INFARCTION , OF INDETERMINATE AGE [40+ ms Q WAVE IN I/aVL/V3-V6] Compared to ECG 02/22/2022 17:01:59 Left posterior fascicular block now present Myocardial infarct finding still present Electronically Signed On 02-23-2022 20:23:27 AVIONICS INTEGRATION ENGINEER by Morteza Pedraza M.D. [id number]
[2022-02-22 19:56] LABS: Troponin 5 2HR 13.38 ng/L (0-15)
[2022-02-22 20:27] LABS: Troponin 5 2HR Delta -1.62 ABS# (0-10)
[2022-02-22 23:34] VITALS: BP 142/64; PULSE 89; RESP 15; O2SAT 94
--- NOTE | 2022-02-24 13:39 | DCPLANNER ---
Addendum entered by Omayra Lakhani 04/17/22 13:37: Patient had a follow up appointment scheduled with neurology - patient did attend appointment. Addendum entered by Omayra Lakhani 03/05/22 10:54: Patient had a EEG scheduled - patient did attend appointment. Addendum entered by Omayra Lakhani 02/27/22 15:26: Patient has a sleep deprived EEG scheduled for Friday, March 04, 2022 at 8:00 with neurology. Clinic will call patient with appointment information. Original Note: manager financial had message to schedule a sleep deprived EEG and a follow up appointment for patient with neurology. manager financial faxed signed order to neurology. Patients information will be printed and reviewed. Clinic will call patient with appointment information. manager financial sent patients information to the front office staff at neurology for follow up. Clinic will call patient with appointment information.
== END 2022-02-22 21:15 | disposition home or self-care (01) ==
PROVIDERS: Emergency Provider Family Medicine; PCP Family Medicine
DX: I25.5 Ischemic cardiomyopathy (principal); G40.A09 Absence epileptic syndrome, not intractable, without status epilepticus; Z79.82 Long term (current) use of aspirin; Z79.02 Long term (current) use of antithrombotics/antiplatelets; I25.10 Atherosclerotic heart disease of native coronary artery without angina pectoris; E11.9 Type 2 diabetes mellitus without complications; E78.5 Hyperlipidemia, unspecified; I11.0 Hypertensive heart disease with heart failure; I50.20 Unspecified systolic (congestive) heart failure; Z87.891 Personal history of nicotine dependence
CPT/HCPCS: 36415; 71045; 80053; 83880; 84484; 85025; 93005; 99285

== ENCOUNTER → 2022-03-04 07:37 | Outpatient (BNVA) | payer MEDICARE, SELFPAY | PROVIDERS: PCP Family Medicine; Referring Provider Family Medicine; Visit Provider Specialist | DX: R56.9 Unspecified convulsions (principal) | CPT/HCPCS: 95812 ==

== ENCOUNTER → 2022-03-13 10:07 | Outpatient (BNVA) | payer MEDICARE, SELFPAY | PROVIDERS: PCP Family Medicine; Visit Provider Specialist | DX: R56.9 Unspecified convulsions (principal); I11.0 Hypertensive heart disease with heart failure; I50.20 Unspecified systolic (congestive) heart failure; I25.5 Ischemic cardiomyopathy; M00.9 Pyogenic arthritis, unspecified | CPT/HCPCS: 99204 ==

== ENCOUNTER → 2022-03-20 09:45 | Outpatient (BNVA) | payer MEDICARE, SELFPAY | PROVIDERS: PCP Family Medicine; Visit Provider Thoracic Surgery (Cardiothoracic Vascular Surgery) | DX: I11.0 Hypertensive heart disease with heart failure (principal); I50.20 Unspecified systolic (congestive) heart failure | CPT/HCPCS: 99203 ==

== ENCOUNTER 2022-04-08 13:26 | Observation (INO) | payer MEDICARE, SELFPAY ==
[2022-04-03 08:14] VITALS: BMI 30.2
--- NOTE | 2022-04-03 08:27 | ANES.PREANE2 ---
Pre-Anesthetic Assessment Height/Weight: Height 1.96 m Weight 115.666 kg Preop Diagnosis: Chest pain/abnormal stress test Operation Date: 04/08/22 11:55 Proposed Procedures p Defibrillator Placement 00428,I50.20(Not Applicable) - Kenny Berumen MD Familial anesthetic complications: Violent upon awakening Social No alcohol and No tobacco former chew Exam alert, oriented x 3, clear to auscultation bilaterally and regular rate & rhythm Airway Mallampati: Class II Dentition: other (none) Pulmonary None reported CV/HEM Coronary Artery Disease PEA 5 minutes after anesthesia induction while in septic shock for knee replacement - July ?Echo 09/13 CONCLUSIONS ?1. This is a technically difficult study.? Optison was used per ?protocol. ?2. Mild dilated left ventricle.? Moderately decreased left ?ventricular systolic function. Left ventricular ejection ?fraction is estimated at 30 % visually and 27% by modified ?biplane method.? There is moderate global hypokinesis with ?regional variation. ?3.? Direct comparison to previous study is not possible due to ?quality of the study. Sestamibi stress 09/13 Conclusion: 1. ? Normal EKG response to Lexiscan infusion 2.? No Lexiscan induced chest pain or cardiac arrhythmia. 3.? Normal blood pressure and heart rate response. 4.? Sestamibi/sestamibi perfusion scan pending; see separate report. 09/13 Cath Conclusions ? 1. Severe multivessel coronary artery disease.? DIGITAL MEDIA REPRESENTATIVE from mid LAD.? Severe in-stent restenosis on mid to distal RCA stent.? Status post successful revascularization with balloon angioplasty. ? 2. Medical therapy decided for DIGITAL MEDIA REPRESENTATIVE of LAD and moderate to severe OM stenosis. Recommendations ? * Aggressive risk factor modification. ? * Aspirin and Plavix for at least 1 year. ? * High intensity statin therapy. ? * Outpatient cardiology follow-up in 4 weeks. GI Gastroesophageal Reflux Disease Metabolic Hyperlipidemia Neuropsych Transient Ischemic Attack (? in september) Anesthetic Plan ASA status: 4 Anesthesia: MAC Risk of > 500 ml blood loss (7ml/kg in children): No Medications/Allergies Home Medications Medication Instructions Recorded Confirmed Last Taken Type aspirin 81 mg tablet,delayed 81 mg PO DAILY 08/28/21 04/03/22 04/03/22 History release cetirizine 10 mg capsule 10 mg PO DAILY 08/28/21 04/03/22 04/03/22 History cyclobenzaprine 10 mg tablet 10 mg PO TID PRN Spasms 08/28/21 04/03/22 04/02/22 History docusate sodium 100 mg capsule 100 mg PO BID PRN Constipation 08/28/21 04/03/22 Unknown History famotidine 20 mg tablet 20 mg PO BID 08/28/21 04/03/22 04/03/22 History fluticasone propionate 50 2 spray intranasal DAILY 08/28/21 04/03/22 Unknown History mcg/actuation nasal spray,suspension gabapentin 100 mg capsule 100 mg PO DAILY 08/28/21 04/03/22 04/03/22 History hydroxyzine HCl 50 mg tablet 50 mg PO Q6H PRN Anxiety 08/28/21 04/03/22 Unknown History lidocaine 5 % topical patch 2 patch topical DAILY 08/28/21 04/03/22 Unknown History melatonin 5 mg tablet 5 mg PO BEDTIME 08/28/21 04/03/22 04/02/22 History multivitamin,tx-minerals 1 tab PO DAILY 08/28/21 04/03/22 Unknown History naloxone 0.4 mg/mL injection 0.1 mg IM Q2M PRN Opioid Overdose 08/28/21 04/03/22 Unknown History syringe nitroglycerin 0.4 mg sublingual 0.4 mg sublingual Q5M PRN Chest 08/28/21 04/03/22 Unknown History tablet (Nitrostat) Pain oxycodone-acetaminophen 5 mg-325 2 tab PO Q6H PRN Pain 08/28/21 04/03/22 Unknown History mg tablet (Percocet) potassium chloride 20 mEq 20 meq PO DAILY 08/28/21 04/03/22 04/03/22 History tablet,extended release quetiapine 50 mg tablet 50 mg PO BID 08/28/21 04/03/22 04/02/22 History vitamin E 268 mg (400 unit) capsule 400 unit PO DAILY 08/28/21 04/03/22 Unknown History clopidogrel 75 mg tablet 75 mg PO DAILY 30 days #30 tabs 09/03/21 04/03/22 04/01/22 Rx atorvastatin 40 mg tablet 40 mg PO DAILY 10/23/21 04/03/22 Unknown History alprazolam 0.25 mg tablet 0.25 mg PO DAILY 01/21/22 04/03/22 04/02/22 History carvedilol 6.25 mg tablet 6.25 mg PO BID 01/21/22 04/03/22 Unknown History spironolactone 25 mg tablet 25 mg PO DAILY 01/21/22 03/20/22 Unknown History losartan 25 mg tablet 12.5 mg PO DAILY #45 tabs 01/22/22 04/03/22 Unknown Rx fluoxetine 40 mg capsule 40 mg PO BID 03/20/22 04/03/22 04/03/22 History Allergies Allergy/AdvReac Type Severity Reaction Status Date / Time Penicillins AdvReac ADR-Itching Verified 03/20/22 09:51 [facility] Anesthesia Medical History Anemia Cardiac arrest Chewing tobacco nicotine dependence Chronic back pain Coronary artery disease Diabetes RAMAN (generalized anxiety disorder) GERD (gastroesophageal reflux disease) HFrEF (heart failure with reduced ejection fraction) Hyperlipidemia Hypertension Ischemic cardiomyopathy MSSA bacteremia Rib fractures Septic arthritis Sternal fracture Surgical History History of total knee arthroplasty Stented coronary artery Family History Other CAD (coronary artery disease) Myocardial infarction Social History Smoking and tobacco status: never smoked Quit status (tobacco): has quit using tobacco Alcohol intake: current Alcohol intake frequency: holidays/special occasions only Alcohol type: beer, wine and hard liquor Data Anesthesia 04/03/22 08:28 04/03/22 08:28 Cardiac Studies: Echocardiogram 01/02/22 Echocardiogram Limited Views 08/28/21 Sestamibi Stress Test (Cardiology) 08/28/21
[2022-04-03 08:40] LABS: Basophils % 0.2 %; Eosinophils # 0.1 10^3/uL (0.0-0.8); Eosinophils % 2.3 %; Hematocrit 43.5 % (42.0-52.0); Hemoglobin 13.7 g/dL (11.7-16.6); Lymphocytes # 2.1 10^3/uL (0.8-4.8); Lymphocytes % 36.9 %; Mean Corpuscular HGB Conc 31.5 g/dL (30.0-36.0); Mean Corpuscular Hemoglobin 30.6 pg (28.0-34.0); Mean Corpuscular Volume 97.3 fl (80-94); Mean Platelet Volume 9.1 fL (7.4-10.4); Monocytes # 0.4 10^3/uL (0.2-0.9); Monocytes % 6.1 %; Neutrophils # 3.13 10^3/uL (1.8-7.7); Neutrophils % 54.3 %; Nucleated Red Blood Cells % 0 %; Platelet Count 223 10^3/cmm (130-400); Red Blood Count 4.47 10^6/uL (4.1-5.3); Red Cell Distribution Width 12.2 % (12.1-15.1); White Blood Count 5.8 10^3/uL (4.0-10.0)
--- NOTE | 2022-04-03 08:48 | SUR.PREOP ---
Pre-op Patient is unsure exactly which medications he takes. Called Cardiology clinic to verify which medications to take day of surgery and which medications to hold. Instructed from Cardiology, patient is to continue taking Aspirin and take Losartan morning of surgery. He is to hold Plavix and Vitamin E 5 days prior to surgery. Hibiclens bottle and diap soap given with instructions on use.
[2022-04-03 08:59] LABS: Anion Gap 13.4 (5-19); Blood Urea Nitrogen 14 mg/dL (8-23); Calcium 9.5 mg/dL (8.5-10.5); Carbon Dioxide 27 mmol/L (22-29); Chloride 100 mmol/L (98-107); Glomerular Filtration Rate 96.7 mL/min (90-130); Glucose 134 mg/dL (65-115); Osmolality Calculated 284 mOsm/kg (285-295); Potassium 4.4 mmol/L (3.5-5.1); Sodium 136 mmol/L (136-145)
[2022-04-08] VITALS (21 sets, daily range): BP systolic 109–166; BP diastolic 52–95; PULSE 67–88; RESP 11–34; TEMP 36.1–36.9; O2SAT 93–99
--- NOTE | 2022-04-08 08:24 | SC_ITS ---
WS: [id number] C-arm fluoroscopy for pacemaker wire placement, 04/08/2022 Clinical Data: AICD implantation Comparison: None. Findings: Dr. Shultz inserted a cardiac pacemaker wire which ends in the region of the right ventricle. SC/C-arm FL for Pacemaker Impression: Pacemaker wire insertion and region of the right ventricle.
[2022-04-08] MEDS: sodium chloride 0.9% 1,000 ML 30 ML IV (08:37)
--- NOTE | 2022-04-08 09:37 | SUR.PREOP ---
Pre-op UA Patient unable to urinate for UA specimen. OR nurse, [place], contacted to notify Dr. Berumen. OR nurse contacted back and stated that was okay, will obtain specimen in OR. Patient notified.
--- NOTE | 2022-04-08 10:24 | P.ANESUD_ITS ---
Pre-Anesthetic Update Pre-Anesthetic Assessment: Date of Surgery/Procedure: 04/08/22 Preop [place] gnosis: congestive heart failure Proposed Procedure: Operation Date: 04/08/22 11:55 Proposed Procedures p Defibrillator Placement 06024,I50.20(Not Applicable) - Kenny Berumen MD Any changes to Pre-Anesthetic Assessment?: No Last Intake: Intake Last Liquid Date 04/07/22 Last Liquid Time 23:30 Last Solid Date 04/07/22 Last Solid Time 18:00 Vitals: Temperature 97.8 F 04/08/22 08:25 Temperature Source Temporal Artery S can 04/08/22 08:25 Pulse Rate 88 04/08/22 08:25 Respiratory Rate 16 04/08/22 08:25 Blood Pressure 133/84 04/08/22 08:25 Blood Pressure Hattie n 100 04/08/22 08:25 Pulse Oximetry 98 04/08/22 08:25 Oxygen Delivery Me thod 04/08/22 08:34 Exam: Pre-Anes Outpt Exam: alert, oriented x 3, clear to auscultation bilaterally and regular rate & rhythm Cardiac Studies: Echocardiogram 01/02/22 Echocardiogram Limited Views 08/28/21 Sestamibi Stress Test (Cardiology) 08/28
[2022-04-08 10:34] LABS: Add Urine Microscopic? NO; Charge for UA Resulting for Rev
--- NOTE | 2022-04-08 10:41 | W.PM.OPSUD ---
Surgery/Procedure H&P Update DATE OF PROCEDURE: April 08, 2022 DATE H&P PERFORMED: 03/20/22 H&P UPDATE INFORMATION: I have reviewed H&P completed within last 30 days, I have examined patient prior to procedure and No changes to prior documentation PREOP DIAGNOSIS: congestive heart failure PRIMARY INDICATION FOR PROCEDURE: Ventricular arrthymia prophylaxis PLANNED PROCEDURE: Operation Date: 04/08/22 11:55 Proposed Procedures p Defibrillator Placement 03954,I50.20(Not Applicable) - Kenny Berumen MD
[2022-04-08 10:44] LABS: Urine Appearance Clear (CLEAR); Urine Color Yellow (Yellow)
[2022-04-08 10:45] LABS: Bilirubin Urine Neg (Negative); Blood Urine Neg (Negative); Glucose Urine UA Norm (Normal); Ketones Urine Negative (Negative); Leukocyte Esterase Urine Negative (Negative); Nitrate Urine Negative (Negative); Protein Urine Neg (Negative); Sulfosalicylic Acid Urine Negative (Negative); Urobilinogen Urine Norm (Negative); pH Urine 8 (5-7)
[2022-04-08] MEDS: vancomycin 1,500 MG/300 ML PIGGYBACK 200 MG IV ×2 (11:19→18:38)
[2022-04-08] MEDS: lidocaine 2% INJ 20 mL INJECTION (11:47)
[2022-04-08] MEDS: vancomycin 1,000 MG SDV 1000 MG IRRIGATION (11:48)
--- NOTE | 2022-04-08 13:10 | PC.NURSE ---
patient awake. airway removed
--- NOTE | 2022-04-08 13:27 | PC.NURSE ---
chest xray ordered for now
--- NOTE | 2022-04-08 13:39 | XRR_ITS ---
PROCEDURE INFORMATION: Exam: XR Chest Exam date and time: 04/08/2022 1:42 PM Age: 66 years old Clinical indication: Device placement; Cardiac defibrillator lead placement or adjustment; Prior surgery; Surgery date: Post-operative (0-2 days); Surgery type: Post op defibrillator TECHNIQUE: Imaging protocol: Radiologic exam of the chest. Views: 1 view. COMPARISON: CR (CHEST, ) 02/22/2022 5:15 PM FINDINGS: Lungs: Unremarkable. No consolidation. Pleural spaces: Unremarkable. No pleural effusion. No pneumothorax. Heart/Mediastinum: Unremarkable. No cardiomegaly. Bones/joints: Unremarkable. A cardiac device is present in the anterior chest. The lead is intact and well positioned. XR/XR chest 1V portable [id number] IMPRESSION: No acute findings. Cardiac device left anterior chest in good position
[2022-04-08] MEDS: oxyCODONE-APAP 5-325 mg Tablet 2 TAB PO ×2 (15:24→23:02)
--- NOTE | 2022-04-08 15:47 | PC.PHAR ---
Addendum entered by Sary Bell 04/08/22 15:52: ext med history shows ofloxacin 1 drop qid right eye filled 03/12/22 50d/s states the pt was told not to use Original Note: pt and pts (life partner) jose verified the pts medications
[2022-04-08] MEDS: cyclobenzaprine 10 mg Tablet PO (16:02)
--- NOTE | 2022-04-08 16:18 | ANE.PACU2 ---
Inpatient post-anesthesia follow up: Airway intact: Yes Vital signs: Temperature 97.8 F Pulse Rate 84 Respiratory Rate 16 Blood Pressure 166/77 Pulse Oximetry 98 Oxygen Delivery Me thod Room Air Oxygen Flow Rate Fraction of Inspir ed Oxygen Hydration adequate: Yes Nausea and vomiting: No Pain level: 2 Mental status: Baseline
--- NOTE | 2022-04-08 16:25 | P.OP_ITS ---
Operative Report Date of procedure: April 08, 2022 Pre-op diagnosis: Preop Diagnosis congestive heart failure Post-op diagnosis: same Procedure done: Automatic implantable cardiac defibrillator implantation Implants: [employer] AICD generator and lead Pathology: none sent Surgeon: Kenny Berumen Anesthesia: MAC and Local Complications: None Condition: stable Disposition: PACU Brief History: Mr. Hearn is a 66-year-old gentleman with congestive heart failure and an ejection fraction of approximately 30% that has been refractory to medical management. He has had at least 1 episode of ventricular fibrillation during p rior orthopedic surgery at an outside institution. He is scheduled for a repeat left knee replacement. Given his cardiac dysfunction, AICD implantation has been recommended prior to surgery. Apparently he had a previously infected prosthesis requiring removal and subsequent left knee fusion over a spacer. Particular concerns of device implantation with his prior history of infection were carefully and frankly discussed as well as potential increased risk for complications from wound healing which might result and device explantation. He stated understanding. Details of risk of procedure were carefully reviewed and proper consents have been signed. Procedure: Procedure: Mr. Hearn was taken to the OR suite and placed in the supine posi tion over a shoulder roll. Appropriate timeout was completed and confirmed by all present. He received conscious sedation with continuous anesthesia monitoring by. His entire chest was sterilely prepped and draped. 1% lidocaine was infiltrated in the left subclavicular region. While in Trendelenburg position, utilizing modified seldinger technique, a guidewire was placed in the left subclavian vein. This was confirmed in position by fluoroscopy. Next, after infiltration with lidocaine, a subcutaneous pocket was created beginning from the exit point of the guidewire and extending laterally and inferiorly. Cautery was utilized to create the pocket just above the pectoralis musculature. Hemostasis was confirmed. An antibiotic-soaked sponge was placed in the wound. A dilator and tear-away sheath was placed over the guidewire and advanced under fluoroscopy. Guidewire and dilator were removed. Next using a combination of curved and straight stylettes, the right ventricular lead was placed in position by fluoroscopy. The distal screw was extended. Interrogation was then performed confirming appropriate parameters. The tear-away sheath was then removed and the ventricular lead was sewn to the floor of the subcutaneous pocket. Generator was brought into the field, and after confirmation of hemostasis in the subcutaneous pocket, the lead was connected to the generator w ith appropriate capture. The entire system was interrogated by fluoroscopy. Lead and generator were secured in the pocket after the generator then placed in an antibiotic sleeve. Sponge and needle count was correct. The wound was then closed in 2 layers of 3-0 Vicryl suture. Skin was reapproximated in a subcuticular manner with 4-0 Monocryl suture. A pressure dressing was applied. The left arm was placed in a sling. Mr. Hearn had equal breath sounds bilaterally. He was then transferred to the PACU, where chest x-ray was completed. I did correctional classification counselor with the family at the completion of the procedure. Following are the specifics of this system: Right ventricular lead is 62 cm and model 6935M. Serial number [id number] Ventricular lead had sensing of 12.5 mV with an impedance of 665 ohms. Threshold was 0.5 V mGaadi AICD generator: Model # [id number] Serial # [id number]
[2022-04-08] MEDS: quetiapine 100 mg Tablet 50 MG PO (17:23)
[2022-04-08] MEDS: carvedilol 6.25 mg Tablet PO (17:23)
[2022-04-08] MEDS: fluoxetine 20 mg Capsule 40 MG PO (17:23)
[2022-04-08] MEDS: diphenhydrAMINE 25 mg Capsule PO (23:55)
[2022-04-09] VITALS (7 sets, daily range): BP systolic 121–129; BP diastolic 70–77; PULSE 20–78; RESP 15–112; TEMP 36.4–36.8; O2SAT 94–96
[2022-04-09] MEDS: vancomycin 1,500 MG/300 ML PIGGYBACK 200 MG IV (02:41)
[2022-04-09] MEDS: diphenhydrAMINE 25 mg Capsule PO (02:48)
[2022-04-09 05:19] LABS: Eosinophils # 0.2 10^3/uL (0.0-0.8); Eosinophils % 2.4 %; Hematocrit 38.7 % (42.0-52.0); Hemoglobin 12.4 g/dL (11.7-16.6); Lymphocytes # 2.2 10^3/uL (0.8-4.8); Lymphocytes % 31.8 %; Mean Corpuscular Hemoglobin 30.6 pg (28.0-34.0); Mean Corpuscular Volume 95.6 fl (80-94); Mean Platelet Volume 9.2 fL (7.4-10.4); Monocytes # 0.5 10^3/uL (0.2-0.9); Monocytes % 6.5 %; Neutrophils # 4.15 10^3/uL (1.8-7.7); Nucleated Red Blood Cells % 0 %; Platelet Count 213 10^3/cmm (130-400); Red Blood Count 4.05 10^6/uL (4.1-5.3); Red Cell Distribution Width 12.5 % (12.1-15.1)
[2022-04-09] MEDS: TRAMadol 50 mg Tablet PO (05:37)
[2022-04-09 05:44] LABS: Anion Gap 13.2 (5-19); Blood Urea Nitrogen 20 mg/dL (8-23); Calcium 8.7 mg/dL (8.5-10.5); Carbon Dioxide 27 mmol/L (22-29); Chloride 101 mmol/L (98-107); Glomerular Filtration Rate 84.4 mL/min (90-130); Glucose 132 mg/dL (65-115); Osmolality Calculated 288 mOsm/kg (285-295); Potassium 4.2 mmol/L (3.5-5.1); Sodium 137 mmol/L (136-145)
--- NOTE | 2022-04-09 06:51 | P.DS_ITS ---
Discharge Providers Date of Admission: 04/08/22 13:26 Date of Discharge: April 09, 2022 Attending Provider at Admission: Kenny Berumen MD Attending Provider at Discharge: Kenny Berumen MD Primary Care Provider: Souleymane Neal Reason for Visit Reason for Visit: Unspecified systolic (congestive) heart failure Brief History: Mr. 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 He has not documented congestive heart failure which is medically refractory. AICD has been recommended for primary prevention. Hospital Course Hospital Course He was electively admitted and underwent single-lead AICD implantation yesterday. Postop day, he is convalesced on the pal where he continues to do well with minimal discomfort. Device interrogation this morning reveals appropriate function. Surgical incision is clean and dry with minimal swelling. There is no substantial ecchymosis. No erythema. Physical Exam Chest: COMMONS NORMALS: normal inspection of the chest OTHER: Surgical site is clean and dry. Surgical dressing has been replaced. Resp: COMMON NORMALS: normal respiratory effort, No use of accessory muscles and clear to auscultation bilaterally AUSCULTATION: clear to auscultation bilaterally Cardio: COMMON NORMALS: regular rate, regular rhythm, S1 normal heart sound present and No murmurs present (Cardio) RATE: regular rate RHYTHM: regular rhythm HEART SOUNDS: S1 normal heart sound present Discharge Data Studies Completed and Pending Completed Studies During Hospitalization Category Date Time Status XR chest 1V portable [id number] Routine Exams 04/08/22 13:39 Completed Pending at discharge Category Date Time Status C-arm FL for Pacemaker Routine Exams 04/08/22 08:24 Taken Radiology Impressions Chest X-Ray 04/08/22 13:39 IMPRESSION: No acute findings. Cardiac device left anterior chest in good position Laboratory Results WBC 7.0 10^3/uL (4.0-10.0) 04/09/22 04:52 RBC 4.05 10^6/uL (4.1-5.3) L 04/09/22 04:52 Hgb 12.4 g/dL (11.7-16.6) 04/09/22 04:52 Hct 38.7 % (42.0-52.0) L 04/09/22 04:52 MCV 95.6 fl (80-94) H 04/09/22 04:52 MCH 30.6 pg (28.0-34.0) 04/09/22 04:52 MCHC 32.0 g/dL (30.0-36.0) 04/09/22 04:52 RDW 12.5 % (12.1-15.1) 04/09/22 04:52 Plt Count 213 10^3/cmm (130-400) 04/09/22 04:52 MPV 9.2 fL (7.4-10.4) 04/09/22 04:52 Neut % (Auto) 59.0 % 04/09/22 04:52 Lymph % (Auto) 31.8 % 04/09/22 04:52 [place] % (Auto) 6.5 % 04/09/22 04:52 Eos % (Auto) 2.4 % 04/09/22 04:52 Baso % (Auto) 0.0 % 04/09/22 04:52 Neut # (Auto) 4.15 10^3/uL (1.8-7.7) 04/09/22 04:52 Lymph # (Auto) 2.2 10^3/uL (0.8-4.8) 04/09/22 04:52 [place] # (Auto) 0.5 10^3/uL (0.2-0.9) 04/09/22 04:52 Eos # (Auto) 0.2 10^3/uL (0.0-0.8) 04/09/22 04:52 Baso # (Auto) 0.0 10^3/uL (0.0-0.1) 04/09/22 04:52 Nucleated RBC % (auto) 0 % 04/09/22 04:52 Nucleated RBCs # 0.0 /100WBC 04/09/22 04:52 Sodium 137 mmol/L (136-145) 04/09/22 04:52 Potassium 4.2 mmol/L (3.5-5.1) 04/09/22 04:52 Chloride 101 mmol/L (98-107) 04/09/22 04:52 Carbon Dioxide 27 mmol/L (22-29) 04/09/22 04:52 Anion Gap 13.2 (5-19) 04/09/22 04:52 BUN 20 mg/dL (8-23) 04/09/22 04:52 Creatinine 0.9 mg/dL (0.7-1.2) 04/09/22 04:52 GFR Calculation 84.4 mL/min (90-130) L 04/09/22 04:52 Glucose 132 mg/dL (65-115) H 04/09/22 04:52 Calculated Osmolality 288 mOsm/kg (285-295) 04/09/22 04:52 Calcium 8.7 mg/dL (8.5-10.5) 04/09/22 04:52 Urine Color Yellow (Yellow) 04/08/22 08:45 Urine Appearance Clear (CLEAR) 04/08/22 08:45 Urine pH 8 (5-7) H 04/08/22 08:45 Ur Specific [place] 1.010 (1.005-1.030) 04/08/22 08:45 Urine Protein Neg (Negative) 04/08/22 08:45 Urine Glucose (UA) Norm (Normal) 04/08/22 08:45 Urine Ketones Negative (Negative) 04/08/22 08:45 Urine Blood Neg (Negative) 04/08/22 08:45 Urine Nitrate Negative (Negative) 04/08/22 08:45 Urine Bilirubin Neg (Negative) 04/08/22 08:45 Prot Sulfosalicylic Acd Negative (Negative) 04/08/22 08:45 Urine Urobilinogen Norm mg/dL (Negative) 04/08/22 08:45 Ur Leukocyte Esterase Negative (Negative) 04/08/22 08:45 Procedures Performed AICD implantation on April 08, 2022 Vitals Last Vital Signs Temp 97.6 F 04/09/22 03:59 Pulse 75 04/09/22 06:00 Resp 20 H 04/09/22 03:59 BP 127/77 04/09/22 03:59 Pulse Ox 96 04/09/22 03:59 O2 Del Method 04/08/22 14:51 Discharge Plan Discharge Patient Disposition: Home Condition: Stable Prescriptions: New sulfamethoxazole-trimethoprim [Bactrim DS] 800-160 mg tablet 1 tab PO BID Qty: 6 0RF Continued atorvastatin 40 mg tablet 40 mg PO QAM spironolactone 25 mg tablet 25 mg PO QAM carvedilol 6.25 mg tablet 6.25 mg PO BID Rx Instructions: must administer with a meal/food alprazolam 0.25 mg tablet 0.25 mg PO BEDTIME fluoxetine 40 mg capsule 40 mg PO BID Rx Instructions: administer in the morning and at noon/midday losartan 25 mg tablet 12.5 mg PO DAILY Qty: 45 1RF cyclobenzaprine 10 mg Tablet 10 mg PO BID aspirin 81 mg Tablet,Delayed Release (Dr/Ec) 81 mg PO QAM famotidine 20 mg Tablet 20 mg PO BID docusate sodium 100 mg Capsule 100 mg PO DAILY gabapentin 100 mg Capsule 100 mg PO TID fluticasone propionate 50 mcg/actuation [place],Suspension 2 spray INTRANASAL DAILY PRN (Reason: Allergy Symptoms) Rx Instructions: administer into each nostril cetirizine 10 mg Capsule 10 mg PO BEDTIME oxycodone-acetaminophen [Percocet] 5-325 mg Tablet 2 tab PO Q6H PRN (Reason: Pain) lidocaine 5 % Adhesive Patch,Medicated 2 patch TOPICAL DAILY PRN (Reason: Pain) Rx Instructions: leave on most painful area for up to 12 hrs nitroglycerin [Nitrostat] 0.4 mg Tablet, Sublingual 0.4 mg SUBLINGUAL Q5M PRN (Reason: Chest Pain) Rx Instructions: do not exceed 3 doses per episode vitamin E 400 unit Capsule 400 unit PO DAILY quetiapine 50 mg Tablet 50 mg PO BID potassium chloride 20 mEq Tablet Extended Release 20 meq PO DAILY clopidogrel 75 mg Tablet 75 mg PO DAILY 30 Days Qty: 30 2RF Tylenol Ex Str Rapid Release 500 mg Tablet 1,500 mg PO Q6H PRN (Reason: Pain) metoprolol succinate 25 mg tablet extended release 24 hr 25 mg PO QAM Men's Multivitamin 400-20-300 mcg Tablet 1 tab PO QAM Discharge Orders: Discharge Order (Routine); Ordered 04/09/22 Ordered By: Kenny Berumen Referrals: [facility] [Provider Group] - 1 week (Pacemaker clinic) Discharge Diet: Usual diet Discharge Activity: Limit activity as instructed Patient Instructions: Opioid Safety Activity Restrictions/Additional Instructions: May remove bandage in 2 days May begin daily showers in 3 days Dry incision carefully after showers. May re-cover if desired to prevent irritation from clothing. No swimming or tub baths x 2 weeks No ointments on incision Report drainage, redness, heat, increased pain, or swelling to clinic Do not lift left arm above eye level for 2 weeks Left more than 5 pounds left arm for 2 weeks May use crutches with left arm or use left arm for pushing up as needed Do not resume Plavix until April 11. Please call [facility] for any concerns or questions Discharge Attestations Time Spent in Discharge Care*: less than 30 min Specific Discharge Activities: educating patient, discussing with case management social worker/social workers/dc planners, documenting/other paperwork and evaluating patient/reviewing data Status at Discharge: Cognitive status at discharge: cognitively intact , Behavioral status at discharge: cooperative , Functional status at discharge: uses cane/walker , Overall status at discharge: patient is back to baseline Quality Metrics Clinical Quality Measures [ No reported AMI, CVA or VTE this stay] 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 of Care Code Acute Code for Se [place]
--- NOTE | 2022-04-09 09:46 | PC.CHAP ---
Pastoral Care Encounter/Spiritual Assessment Type of Contact [] Declined fine unhairer visit [] Patient/Family/Request visit [] Outpatient visit [] Follow-up visit [] Physician referral [] Code/Alert [x] Routine visit [] Staff referral [] Actively dying [] Patient sleeping [] Family support [] [] Out of room [] Palliative care [] [] Receiving care in room [] Pre-surgical visit [] Trauma [] Long length of stay [] ICU visit [] Other: Relational/Emotional Strength [x] Patient feels connected with others/family/visitors/staff [] Distress [] Loneliness/isolation [] Abandonment Spirituality of Patient [x] Person of Gema [] Attends Alevism of their Gema [x] Believes in Prayer [x] Reads Bible or Yazidism materials [] There are Spiritual issues to be addressed Dynamotor Repairer Interventions [x] Prayer [x] Active listening [x] Non-anxious presence [x] Spiritual/emotional support [] Crisis/trauma care [] Spiritual counseling [] Bereavement support [] Provided bereavement packet [] Provided Bible/devotional materials [] Provided toy/stuffed animal, coloring book to patient or family member [] Provided Communion [] Anointing/[place] [] Salvation [x] Completed spiritual assessment [] Other: Impact on Illness or Injury [] Angry [] Fearful [] Anxious [] Often cries [] Exhaustion [] Unable to work [] Unable to attend christian [] Unable to walk/stand [] Unable to read [] Unable to drive [] Unable to eat/drink [] Unable to sleep [] Unable to be with family [] Patient intubated [] Other: Summary Pt cannot use left side of body due to heart surgery and a knee problem on his left leg. The doctor would not fix the knee until his heart issue is resolved. He had an infection in the leg last year resulting in coding 2x while trying to address the infection. After this the doctor wanted him to resolve the heart issue before proceeding to surgery on the knee. Pt just had the heart surgery and cannot move his left arm for 4 weeks. With this and the knee he cannot use the left side of his body. He is seeking to go to [facility] where they have a swing bed which will assist him. He may need to go into rehab also. Pt lives with girlfriend but she is in poor health also and will not be able to lend physical support. Pt has a long road of medical procedures and therapy ahead of him. Time spent with patient 15m
[2022-04-09] MEDS: ALPRAZolam 0.5 mg Tablet 0.25 MG PO (09:51)
[2022-04-09] MEDS: pantoprazole DR 40 mg Tablet PO (09:52)
[2022-04-09] MEDS: quetiapine 100 mg Tablet 50 MG PO (09:52)
[2022-04-09] MEDS: carvedilol 6.25 mg Tablet PO (09:52)
[2022-04-09] MEDS: losartan 50 mg Tablet 12.5 MG PO (09:52)
[2022-04-09] MEDS: fluoxetine 20 mg Capsule 40 MG PO (09:52)
[2022-04-09] MEDS: cetirizine 10 mg Tablet PO (09:52)
[2022-04-09] MEDS: potassium chloride ER 20 mEq Tablet PO (09:53)
[2022-04-09] MEDS: atorvastatin 40 mg Tablet PO (09:53)
[2022-04-09] MEDS: gabapentin 100 mg Capsule PO (09:53)
[2022-04-09] MEDS: fluticasone nasal spray 16gm Btl 2 SPRAY INTRANASAL (09:53)
[2022-04-09] MEDS: oxyCODONE-APAP 5-325 mg Tablet 2 TAB PO (09:53)
--- NOTE | 2022-04-09 11:17 | PC.NURSE ---
patient verbalized understanding of discharge instructions, home medications, and follow up appointments.
== END 2022-04-09 14:39 | disposition home health service (06) ==
LOC: MEDSURG 13:26
PROVIDERS: Anesthesiology; Admitting Provider Thoracic Surgery (Cardiothoracic Vascular Surgery); PCP Family Medicine; Visit Provider Thoracic Surgery (Cardiothoracic Vascular Surgery)
PROC: 0JH608Z Insertion of Defibrillator Generator into Chest Subcutaneous Tissue and Fascia, Open Approach (ICD-10-PCS; CPT 33249; principal; 2022-04-08 11:35)
DX: I50.9 Heart failure, unspecified (principal); Z87.891 Personal history of nicotine dependence; I25.10 Atherosclerotic heart disease of native coronary artery without angina pectoris; K21.9 Gastro-esophageal reflux disease without esophagitis; E78.5 Hyperlipidemia, unspecified; Z86.73 Personal history of transient ischemic attack (TIA), and cerebral infarction without residual deficits; Z79.82 Long term (current) use of aspirin; F41.1 Generalized anxiety disorder; I25.5 Ischemic cardiomyopathy
CPT/HCPCS: 33249; 36415; 71045; 76000; 80048; 81003; 85025; C1722; C1777; G0378; J2250; J2704; J3010; J3370; J3490; J7030

== ENCOUNTER → 2022-04-16 08:23 | Outpatient (BNVA) | payer MEDICARE, SELFPAY | PROVIDERS: PCP Family Medicine; Visit Provider Nurse Practitioner Family | DX: I25.5 Ischemic cardiomyopathy (principal); Z95.810 Presence of automatic (implantable) cardiac defibrillator; I11.0 Hypertensive heart disease with heart failure; I50.20 Unspecified systolic (congestive) heart failure | CPT/HCPCS: 99214 ==

== ENCOUNTER → 2022-05-06 15:03 | Outpatient (BNVA) | payer MEDICARE, SELFPAY | PROVIDERS: PCP Family Medicine; Visit Provider Nurse Practitioner Family | DX: I11.0 Hypertensive heart disease with heart failure (principal); I50.20 Unspecified systolic (congestive) heart failure; Z95.810 Presence of automatic (implantable) cardiac defibrillator; I25.118 Atherosclerotic heart disease of native coronary artery with other forms of angina pectoris; Z79.82 Long term (current) use of aspirin | CPT/HCPCS: 99214 ==

== ENCOUNTER 2022-05-11 13:38 | Emergency (ER) | payer MEDICARE, SELFPAY ==
[2022-05-11 13:38] VITALS: BP 144/85; PULSE 66; RESP 17; O2SAT 99; BMI 32.0
--- NOTE | 2022-05-11 13:55 | W.ED.MALEGU ---
HPI - Male Genitourinary General: Chief complaint: Urogenital-Male Stated complaint: Urinating blood Time Seen by Provider: 05/11/22 13:47 History of Present Illness: Mr. Hearn is a 66-year-old gentleman with complex past medical history presenting to the emergency department for hematuria. He reports being at his baseline health the past few days and was out at his daughter's house. He was having a bowel movement and noticed when he stood up bleeding and a blood clot that passed from his urethra. Denies associated pain. Denies changes in urination recently. He has not had recurrence since this event. He reports a remote history of kidney stones but no other abdominal symptoms. No testicular swelling, pain, or penile pain. No skin lesions. He is on aspirin and Plavix. No other specific changes in health, exacerbating, or alleviating factors identified. Onset (ago): minute(s) Exacerbating factors: none Review of Systems General: Reports: 10 or more systems reviewed and unremarkable except in HPI and below PFSH ED PFSH: Medical History Anemia Cardiac arrest Chewing tobacco nicotine dependence Chronic back pain Coronary artery disease Diabetes RAMAN (generalized anxiety disorder) GERD (gastroesophageal reflux disease) HFrEF (heart failure with reduced ejection fraction) Hyperlipidemia Hypertension Ischemic cardiomyopathy MSSA bacteremia Rib fractures Septic arthritis Sternal fracture Surgical History AICD (automatic cardioverter/defibrillator) present History of total knee arthroplasty Stented coronary artery Family History Other CAD (coronary artery disease) Myocardial infarction Social History Smoking and tobacco status: never smoked Quit status (tobacco): has quit using tobacco Alcohol intake: current Alcohol intake frequency: holidays/special occasions only Alcohol type: beer, wine and hard liquor Physical Exam Const: COMMON NORMALS: alert GENERAL APPEARANCE: cooperative and well developed HENMT: COMMON NORMALS: normocephalic and atraumatic HEAD & SCALP: normocephalic and atraumatic Eye: COMMON NORMALS: conjunctivae normal CONJUNCTIVA: Yes conjunctivae normal SCLERA: sclerae normal Neck/C-Spine: COMMON NORMALS: supple GENERAL: Yes trachea midline Resp: COMMON NORMALS: clear to auscultation bilaterally EFFORT & INSPECTION: Yes able to speak in complete sentences AUSCULTATION: clear to auscultation bilaterally Cardio: COMMON NORMALS: regular rate and regular rhythm RATE: regular rate RHYTHM: regular rhythm GI: COMMON NORMALS: Soft to palpation PALPATION: Yes Soft to palpation and No Tenderness to palpation present (GI) : OTHER: Performed with skin pass operator present (lab). Small amount of dark venous residual blood present on the skin of the penis. No tenderness or skin lesions. No testicular abnormality. Extremity: GENERAL: Yes normal exam except as noted and No edema Neuro: COMMON NORMALS: moves all extremities SENSORIUM/ORIENTATION: Yes alert and No Orientation impaired Psych: COMMON NORMALS: mental status grossly normal and Normal thought process present THOUGHT PROCESS: Normal thought process present Course Vital Signs: Vital signs: Vital Signs Pulse Rate 66 05/11/22 13:38 Respiratory Rate 17 05/11/22 13:38 Blood Pressure 144/85 05/11/22 13:38 Pulse Oximetry 98 05/11/22 16:04 Oxygen Delivery Me thod 05/11/22 16:04 [facility] - Male Medical Decision Making 66-year-old gentleman presenting due to blood from penis. Exam as above. Patient is nontoxic. Labs with no significant hematologic abnormality. Metabolic abnormalities with mild hyponatremia, patient can adequately orally rehydrate. Hematuria with small amount of white blood cells and bacteria present. CT imaging without clear etiology of symptoms identified. Incidental findings including nodular airspace opacification discussed with patient including need for follow-up. Patient given antibiotic. Most likely etiology of patient's symptoms is urinary tract infection. The results of ED evaluation were discussed with the patient including prescriptions and/or symptomatic cares (if applicable) including appropriate and responsible use, followup plan, and return precautions. The patient verbalized understanding and felt safe for discharge. Medical Records I reviewed the patient's medical records. Lab Data I reviewed the patient's lab results. 05/11/22 14:26 05/11/22 14:26 Radiology Impressions Abdomen/Pelvis CT 05/11/22 15:38 IMPRESSION: 1. 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 2. Perinephric edema bilaterally suggestive of renal insufficiency. 3. Left kidney lower pole exophytic cyst, negative for follow up. 4. Coronary artery atherosclerotic calcifications. 5. Right lower lobe 15 mm focal nodular airspace opacification, dedicated chest CT advised for further evaluation. 6. Bibasilar atelectasis. 7. Hepatic steatosis. 8. Pacemaker. 9. Small to moderate hiatal hernia. 10. Constipation. 11. Small to moderate left inguinal hernia containing omentum without bowel. 12. L1 and L2 vertebral body compression fractures without retropulsion of bony fragments. COMMENTS: Consistent with the [employer]'s Incidental Findings Committee white paper (J Am Melissa Radiol 2018): Any incidental renal lesion less than 1 cm or classified as too small to characterize, or any incidental cystic renal lesion characterized as simple-appearing, is likely benign. No follow-up imaging is recommended for these lesions per consensus recommendations based on imaging criteria. Laboratory Results WBC 9.7 10^3/uL (4.0-10.0) 05/11/22 14:26 RBC 4.28 10^6/uL (4.1-5.3) 05/11/22 14:26 Hgb 13.4 g/dL (11.7-16.6) 05/11/22 14:26 Hct 41.0 % (42.0-52.0) L 05/11/22 14:26 MCV 95.8 fl (80-94) H 05/11/22 14:26 MCH 31.3 pg (28.0-34.0) 05/11/22 14:26 MCHC 32.7 g/dL (30.0-36.0) 05/11/22 14:26 RDW 12.5 % (12.1-15.1) 05/11/22 14:26 Plt Count 198 10^3/cmm (130-400) 05/11/22 14:26 MPV 9.3 fL (7.4-10.4) 05/11/22 14:26 Neut % (Auto) 70.5 % 05/11/22 14:26 Lymph % (Auto) 20.7 % 05/11/22 14:26 [place] % (Auto) 6.4 % 05/11/22 14:26 Eos % (Auto) 1.9 % 05/11/22 14:26 Baso % (Auto) 0.2 % 05/11/22 14: Neut # (Auto) 6.86 10^3/uL (1.8-7.7) 05/11/22 14: Lymph # (Auto) 2.0 10^3/uL (0.8-4.8) 05/11/22 14: [place] # (Auto) 0.6 10^3/uL (0.2-0.9) 05/11/22 14: Eos # (Auto) 0.2 10^3/uL (0.0-0.8) 05/11/22 14: Baso # (Auto) 0.0 10^3/uL (0.0-0.1) 05/11/22 14: Nucleated RBC % (auto) 0 % 05/11/22 14: Nucleated RBCs # 0.0 /100WBC 05/11/22 14:26 Sodium 134 mmol/L (136-145) L 05/11/22 14:26 Potassium 4.5 mmol/L (3.5-5.1) 05/11/22 14:26 Chloride 99 mmol/L (98-107) 05/11/22 14:26 Carbon Dioxide 23 mmol/L (22-29) 05/11/22 14:26 Anion Gap 16.5 (5-19) 05/11/22 14:26 BUN 17 mg/dL (8-23) 05/11/22 14:26 Creatinine 0.9 mg/dL (0.7-1.2) 05/11/22 14:26 GFR Calculation 84.4 mL/min (90-130) L 05/11/22 14:26 Glucose 137 mg/dL (65-115) H 05/11/22 14:26 Calculated Osmolality 282 mOsm/kg (285-295) L 05/11/22 14:26 Calcium 9.1 mg/dL (8.5-10.5) 05/11/22 14:26 Total Bilirubin 0.5 mg/dL (0.15-1.2) 05/11/22 14:26 AST 10 U/L (0-40) 05/11/22 14:26 ALT 9 U/L (0-41) 05/11/22 14:26 Alkaline Phosphatase 111 U/L (40-130) 05/11/22 14:26 Total Protein 7.6 g/dL (6.6-8.7) 05/11/22 14:26 Albumin 4.0 g/dL (3.5-5.2) 05/11/22 14:26 Globulin 3.6 g/dL (1.3-4.6) 05/11/22 14:26 Urine Color Yellow (Yellow) 05/11/22 14:58 Urine Appearance Sl hazy (CLEAR) A 05/11/22 14:58 Urine pH 7 (5-7) 05/11/22 14:58 Ur Specific [place] 1.010 (1.005-1.030) 05/11/22 14:58 Urine Protein Neg (Negative) 05/11/22 14:58 Urine Glucose (UA) Norm (Normal) 05/11/22 14:58 Urine Ketones Negative (Negative) 05/11/22 14:58 Urine Blood 3+ (Negative) H 05/11/22 14:58 Urine Nitrate Negative (Negative) 05/11/22 14:58 Urine Bilirubin Neg (Negative) 05/11/22 14:58 Urine Urobilinogen 1 mg/dL (Negative) H 05/11/22 14:58 Ur Leukocyte Esterase Negative (Negative) 05/11/22 14:58 Urine RBC 80-100 /hpf (0-2) H 05/11/22 14:58 Urine WBC 5-10 /hpf (0-5) H 05/11/22 14:58 Ur Squamous Epith Cells Rare /hpf (0-5) 05/11/22 14:58 Amorphous Sediment Not Reportable 05/11/22 14:58 Urine Bacteria 1+ /hpf (NONE) H 05/11/22 14:58 Discharge Plan Discharge Patient Disposition: Home Clinical Impression: Acute UTI, Hematuria, Malrotation, kidney, Incidental pulmonary nodule, greater than or equal to 8mm Condition: Stable Prescriptions: New ciprofloxacin HCl 500 mg tablet 500 mg PO BID Qty: 20 0RF No Action atorvastatin 40 mg tablet 40 mg PO QAM spironolactone 25 mg tablet 25 mg PO QAM carvedilol 6.25 mg tablet 6.25 mg PO BID Rx Instructions: must administer with a meal/food alprazolam 0.25 mg tablet 0.25 mg PO BEDTIME fluoxetine 40 mg capsule 40 mg PO BID Rx Instructions: administer in the morning and at noon/midday losartan 25 mg tablet 12.5 mg PO DAILY Qty: 45 1RF cyclobenzaprine 10 mg Tablet 10 mg PO BID aspirin 81 mg Tablet,Delayed Release (Dr/Ec) 81 mg PO QAM famotidine 20 mg Tablet 20 mg PO BID docusate sodium 100 mg Capsule 100 mg PO DAILY gabapentin 100 mg Capsule 100 mg PO TID fluticasone propionate 50 mcg/actuation [place],Suspension 2 spray INTRANASAL DAILY PRN (Reason: Allergy Symptoms) Rx Instructions: administer into each nostril cetirizine 10 mg Capsule 10 mg PO BEDTIME oxycodone-acetaminophen [Percocet] 5-325 mg Tablet 2 tab PO Q6H PRN (Reason: Pain) lidocaine 5 % Adhesive Patch,Medicated 2 patch TOPICAL DAILY PRN (Reason: Pain) Rx Instructions: leave on most painful area for up to 12 hrs nitroglycerin [Nitrostat] 0.4 mg Tablet, Sublingual 0.4 mg SUBLINGUAL Q5M PRN (Reason: Chest Pain) Rx Instructions: do not exceed 3 doses per episode vitamin E 400 unit Capsule 400 unit PO DAILY quetiapine 50 mg Tablet 50 mg PO BID potassium chloride 20 mEq Tablet Extended Release 20 meq PO DAILY clopidogrel 75 mg Tablet 75 mg PO DAILY 30 Days Qty: 30 2RF acetaminophen 500 mg Tablet 1,500 mg PO Q6H PRN (Reason: Pain) [id number] K-lycop 400-20-300 mcg Tablet 1 tab PO QAM Discharge Orders: Discharge ED (Routine); Ordered 05/11/22 Ordered By: Ochoa Dove Referrals: Souleymane Neal [Primary Care Provider] - Discharge Diet: Usual diet Discharge Activity: Increase activity as tolerated Patient Instructions: Urinary Tract Infection in Men (ED), Hematuria (ED), Pulmonary Nodules (ED) Activity Restrictions/Additional Instructions: Thank you for visiting the emergency department. You were seen and evaluated for blood from your penis. The exact cause of your symptoms is unclear though may be related to urinary tract infection which will be treated with antibiotics. 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 Additionally you have a pulmonary nodule which requires follow-up imaging. This can be arranged by your primary care provider. Please follow-up with your primary care provider. I recommend repeat urinalysis after completion of treatment and referral to urology if blood in urine persists. Other incidental findings include L1 and L2 vertebral body compression fractures which are likely chronic, hepatic steatosis, small to moderate hiatal hernia, small to moderate left inguinal hernia. Return to the emergency department for worsening symptoms despite antibiotics, inability to urinate, abdominal pain, fevers, chills, or anything else that you are concerned about and feel needs emergency department evaluation. 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 of Care Code ED Home Health Caregiver for Se [facility]
[2022-05-11 14:51] LABS: Alanine Aminotransferase 9 U/L (0-41); Alkaline Phosphatase 111 U/L (40-130); Anion Gap 16.5 (5-19); Aspartate Amino Transferase 10 U/L (0-40); Blood Urea Nitrogen 17 mg/dL (8-23); Calcium 9.1 mg/dL (8.5-10.5); Carbon Dioxide 23 mmol/L (22-29); Chloride 99 mmol/L (98-107); Globulin 3.6 g/dL (1.3-4.6); Glomerular Filtration Rate 84.4 mL/min (90-130); Glucose 137 mg/dL (65-115); Osmolality Calculated 282 mOsm/kg (285-295); Potassium 4.5 mmol/L (3.5-5.1); Sodium 134 mmol/L (136-145); Total Bilirubin 0.5 mg/dL (0.15-1.2); Total Protein 7.6 g/dL (6.6-8.7)
[2022-05-11 14:55] LABS: Basophils % 0.2 %; Eosinophils # 0.2 10^3/uL (0.0-0.8); Eosinophils % 1.9 %; Hemoglobin 13.4 g/dL (11.7-16.6); Lymphocytes % 20.7 %; Mean Corpuscular HGB Conc 32.7 g/dL (30.0-36.0); Mean Corpuscular Hemoglobin 31.3 pg (28.0-34.0); Mean Corpuscular Volume 95.8 fl (80-94); Mean Platelet Volume 9.3 fL (7.4-10.4); Monocytes # 0.6 10^3/uL (0.2-0.9); Monocytes % 6.4 %; Neutrophils # 6.86 10^3/uL (1.8-7.7); Neutrophils % 70.5 %; Nucleated Red Blood Cells % 0 %; Platelet Count 198 10^3/cmm (130-400); Red Blood Count 4.28 10^6/uL (4.1-5.3); Red Cell Distribution Width 12.5 % (12.1-15.1); White Blood Count 9.7 10^3/uL (4.0-10.0)
[2022-05-11 15:36] LABS: Add Urine Microscopic? YES; Bilirubin Urine Neg (Negative); Blood Urine 3+ (Negative); Glucose Urine UA Norm (Normal); Ketones Urine Negative (Negative); Leukocyte Esterase Urine Negative (Negative); Nitrate Urine Negative (Negative); Protein Urine Neg (Negative); Urine Appearance SL Hazy (CLEAR); Urine Color Yellow (Yellow); Urobilinogen Urine 1 mg/dL (Negative); pH Urine 7 (5-7)
[2022-05-11 15:37] LABS: Add Urine Culture? Yes; Bacteria Urine 1+ /hpf; RBC Urine 80-100 /hpf (0-2); Squamous Epithelial Cell Urine RARE /hpf (0-5)
--- NOTE | 2022-05-11 15:38 | CTR_ITS ---
PROCEDURE INFORMATION: Exam: CT Abdomen And Pelvis With Contrast Exam date and time: 05/11/2022 3:49 PM Age: 66 years old Clinical indication: Other: Hematuria; Additional info: Painless hematuria TECHNIQUE: Imaging protocol: Computed tomography of the abdomen and pelvis with contrast. Radiation optimization: All CT scans at this facility use at least one of these dose optimization techniques: automated exposure control; mA and/or kV adjustment per patient size (includes targeted exams where dose is matched to clinical indication); or iterative reconstruction. Contrast material: OMNI 350; Contrast volume: 84 ml; Contrast route: INTRAVENOUS (IV); REPORTING DATA: Count of CT and Cardiac NM exams in prior 12 months: This patient has received 3 known CTs and 0 known cardiac nuclear medicine studies in the 12 months prior to the current study. COMPARISON: CR XR chest 1V portable [id number] 04/08/2022 1:42 PM RADIATION DOSE METRICS: Total DLP (mGy-cm): 1382.3 FINDINGS: Tubes, catheters and devices: Pacemaker. Lungs: Right lower lobe 15 mm focal nodular airspace opacification, dedicated chest CT advised for further evaluation. Bibasilar atelectasis. Coronary arteries: Coronary artery atherosclerotic calcifications. Diaphragm: Small to moderate hiatal hernia. Liver: Hepatic steatosis. Gallbladder and bile ducts: Normal. No calcified stones. No ductal dilation. Pancreas: Normal. No ductal dilation. Spleen: Normal. No splenomegaly. Adrenal glands: Normal. No mass. 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 Perinephric edema bilaterally suggestive of renal insufficiency. Left kidney lower pole exophytic cyst, negative for follow up. Stomach and bowel: Constipation. Appendix: No evidence of appendicitis. Intraperitoneal space: Unremarkable. No free air. No significant fluid collection. Vasculature: Unremarkable. No abdominal aortic aneurysm. Lymph nodes: Unremarkable. No enlarged lymph nodes. Urinary bladder: Unremarkable as visualized. Reproductive: Unremarkable as visualized. Bones/joints: L1 and L2 vertebral body compression fractures without retropulsion of bony fragments. Soft tissues: Small to moderate left inguinal hernia containing omentum without bowel. CT/CT abdomen pelvis w con* [id number] IMPRESSION: 1. 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 2. Perinephric edema bilaterally suggestive of renal insufficiency. 3. Left kidney lower pole exophytic cyst, negative for follow up. 4. Coronary artery atherosclerotic calcifications. 5. Right lower lobe 15 mm focal nodular airspace opacification, dedicated chest CT advised for further evaluation. 6. Bibasilar atelectasis. 7. Hepatic steatosis. 8. Pacemaker. 9. Small to moderate hiatal hernia. 10. Constipation. 11. Small to moderate left inguinal hernia containing omentum without bowel. 12. L1 and L2 vertebral body compression fractures without retropulsion of bony fragments. COMMENTS: Consistent with the [employer]'s Incidental Findings Committee white paper (J Am Melissa Radiol 2018): Any incidental renal lesion less than 1 cm or classified as too small to characterize, or any incidental cystic renal lesion characterized as simple-appearing, is likely benign. No follow-up imaging is recommended for these lesions per consensus recommendations based on imaging criteria.
[2022-05-11] MEDS: iohexol 350 mg/mL 500 mL Btl (per mL) IV (15:55)
[2022-05-11 16:04] VITALS: O2SAT 98
[2022-05-11] MEDS: ciprofloxacin 500 mg Tablet PO (16:26)
== END 2022-05-11 16:33 | disposition home or self-care (01) ==
PROVIDERS: Emergency Medicine; Emergency Provider Emergency Medicine; PCP Family Medicine
DX: N39.0 Urinary tract infection, site not specified (principal); R31.9 Hematuria, unspecified; Q63.2 Ectopic kidney; R91.1 Solitary pulmonary nodule; Z79.82 Long term (current) use of aspirin; Z79.02 Long term (current) use of antithrombotics/antiplatelets; N13.30 Unspecified hydronephrosis; Z95.0 Presence of cardiac pacemaker; K44.9 Diaphragmatic hernia without obstruction or gangrene; K40.90 Unilateral inguinal hernia, without obstruction or gangrene, not specified as recurrent; K59.00 Constipation, unspecified; Z87.891 Personal history of nicotine dependence; I25.10 Atherosclerotic heart disease of native coronary artery without angina pectoris; E11.9 Type 2 diabetes mellitus without complications; I11.0 Hypertensive heart disease with heart failure; I50.9 Heart failure, unspecified; E78.5 Hyperlipidemia, unspecified
CPT/HCPCS: 36415; 74177; 80053; 81001; 85025; 87077; 87086; 87186; 99285; Q9967

== ENCOUNTER → 2022-11-05 14:22 | Outpatient (BNVA) | payer MEDICARE, SELFPAY | PROVIDERS: PCP Family Medicine; Visit Provider Internal Medicine Cardiovascular Disease | DX: Z95.810 Presence of automatic (implantable) cardiac defibrillator (principal); I11.0 Hypertensive heart disease with heart failure; I50.20 Unspecified systolic (congestive) heart failure; I42.9 Cardiomyopathy, unspecified; I25.118 Atherosclerotic heart disease of native coronary artery with other forms of angina pectoris; E78.5 Hyperlipidemia, unspecified; Z72.0 Tobacco use | CPT/HCPCS: 99214 ==

== ENCOUNTER → 2023-05-07 10:18 | Outpatient (BNVA) | payer MEDICARE, SELFPAY | PROVIDERS: PCP Family Medicine; Visit Provider Podiatrist Foot & Ankle Surgery | DX: L60.3 Nail dystrophy (principal); G62.9 Polyneuropathy, unspecified; L84 Corns and callosities; E11.42 Type 2 diabetes mellitus with diabetic polyneuropathy | CPT/HCPCS: 11055; 11721; 99203 ==

== ENCOUNTER → 2023-05-18 09:03 | Outpatient (BNVA) | payer MEDICARE, SELFPAY | PROVIDERS: PCP Family Medicine; Visit Provider Nurse Practitioner Family | DX: I11.0 Hypertensive heart disease with heart failure (principal); I50.20 Unspecified systolic (congestive) heart failure; I25.119 Atherosclerotic heart disease of native coronary artery with unspecified angina pectoris; Z95.810 Presence of automatic (implantable) cardiac defibrillator | CPT/HCPCS: 99214 ==

== ENCOUNTER → 2023-07-06 08:51 | Outpatient (BNVA) | payer MEDICARE, SELFPAY | PROVIDERS: PCP Family Medicine; Visit Provider Podiatrist Foot & Ankle Surgery | DX: L60.3 Nail dystrophy (principal); G62.9 Polyneuropathy, unspecified; L84 Corns and callosities; E11.42 Type 2 diabetes mellitus with diabetic polyneuropathy | CPT/HCPCS: 11721 ==

== ENCOUNTER → 2023-09-07 08:57 | Outpatient (BNVA) | payer MEDICARE, SELFPAY | PROVIDERS: PCP Family Medicine; Visit Provider Podiatrist Foot & Ankle Surgery | DX: L60.3 Nail dystrophy (principal); G62.9 Polyneuropathy, unspecified; L84 Corns and callosities; E11.42 Type 2 diabetes mellitus with diabetic polyneuropathy | CPT/HCPCS: 11721 ==

== ENCOUNTER → 2023-11-19 12:40 | Outpatient (BNVA) | payer MEDICARE, SELFPAY | PROVIDERS: PCP Family Medicine; Visit Provider Internal Medicine | DX: I25.118 Atherosclerotic heart disease of native coronary artery with other forms of angina pectoris (principal); Z95.810 Presence of automatic (implantable) cardiac defibrillator; I11.0 Hypertensive heart disease with heart failure; I50.20 Unspecified systolic (congestive) heart failure; I42.9 Cardiomyopathy, unspecified; E78.5 Hyperlipidemia, unspecified; Z72.0 Tobacco use | CPT/HCPCS: 99214 ==

== ENCOUNTER → 2024-09-21 10:22 | Outpatient (BNVA) | payer MEDICARE, SELFPAY | PROVIDERS: PCP Family Medicine; Visit Provider Internal Medicine Cardiovascular Disease | DX: Z45.02 Encounter for adjustment and management of automatic implantable cardiac defibrillator (principal) | CPT/HCPCS: 93296 ==